=== PATIENT | female | born 1955 | race Two or more races ===

== ENCOUNTER 2018-08-31 05:42 | Inpatient (IN) | payer BC ==
--- NOTE | 2018-08-20 12:54 | HP ---
HISTORY AND PHYSICAL: DATE OF ADMISSION/SURGERY: 08/31/18 DATE OF OFFICE VISIT: 08/20/18 SURGEON: Netta Gilbert MD * (DICTATED BY KARIS RODRIGUES) PROCEDURE: Left total knee arthroplasty. CHIEF COMPLAINT: Left knee pain. HISTORY OF PRESENT ILLNESS: Ms. Nogueira is a 63-year-old female with severe end - stage osteoarthritis of the left knee. She has failed conservative treatment and elected to proceed with a left total knee arthroplasty. PAST MEDICAL HISTORY: Macular degeneration, depression, anxiety, and sleep apnea. PAST SURGICAL HISTORY: Gastric bypass, skin removal, and a ureteroscopy. CURRENT MEDICATIONS: 1. Vitamin B12. 2. Vitamin D. 3. Calcium. 4. Klonopin 0.5 mg as needed. 5. Prozac 10 mg daily. 6. Multivitamin. 7. Ranitidine 300 mg daily. 8. Pro-Optic daily. ALLERGIES: No known drug allergies. FAMILY HISTORY: Coronary artery disease, diabetes, cancer, and stroke. SOCIAL HISTORY: She is a 63-year-old female. She lives alone. She does not smoke or use drugs or alcohol. REVIEW OF SYSTEMS: A complete 14-point review of systems was reviewed with the patient, was all negative or noncontributory. She denies a history of DVT, PE, hepatitis, HIV or anesthesia problems. PHYSICAL EXAMINATION GENERAL: She is well developed, well nourished, in no acute distress. VITAL SIGNS: She stands 62 inches tall, weighs 274 pounds, her blood pressure is 138/86, and her heart rate 68. HEENT: Normocephalic, atraumatic. NECK: Supple. No palpable lymph nodes. PULMONARY: The lungs are clear to auscultation bilaterally. CARDIO: Regular rate and rhythm. Strong S1, S2. ABDOMEN: Soft, nontender and nondistended. NEUROLOGICAL: She is alert and oriented x3. MUSCULOSKELETAL: Left lower extremity: The skin is intact. There are no open wounds or abrasions. There is severe varus deformity of the left knee. Range of motion is 5 to 70 degrees of flexion on the left. She has a 2+ dorsalis pedis pulse. Intact sensation. Her lower extremity muscle group strengths are intact at 5/5. ASSESSMENT AND PLAN: Ms. Nogueira is a 63-year-old female with severe end-stage osteoarthritis of the left knee. She has failed conservative treatment and elected to proceed with the left total knee arthroplasty. Her surgery is scheduled for 08/31/[address] Gilbert discussed the risks and benefits of the surgery at today's visit and all of her questions were answered. She will follow up 2 weeks after the surgery. KARIS RODRIGUES [id number]/[facility] #: [id number] [facility] HEALTHBarbara
[~2018-08-31 05:42] MED LIST: Buffered Lidocaine 1% SYRIN* 1 ML/SYRINGE INTRADERM ONE; Tranexamic Acid 1,000 MG in NS 0.9% 50 ML* (outpatient use) IV SCH
--- OUTSIDE RECORDS SUMMARY | 2018-08-31 05:45 | XMS REPORT | Continuity of Care Document ---
:1955 External Reference #:[id number] Author Name Shanna Ross Care Team Providers Name Role Phone Tram Jolly MD Primary Care Physician Unavailable Payers Type Date Identification Numbers Payment Provider Subscriber Policy Number: [id number] [facility] Serena Nogueira PayID: [id number] [address] [place] [address] Advance Directives Description No Information Available Problems Date Description Provider Status Onset: 02/15/2016 Knee pain Clementine Redmond MD Active Onset: 02/15/2016 Localized, primary osteoarthritis Clementine Redmond MD Active Onset: 02/15/2016 Obesity Clementine Redmond MD Active Onset: 03/11/2016 Dyssomnia Savana Turner DNP, RN, Active [employer]IN[employer] REST[employer]ER-BC Onset: 03/11/2016 Hypersomnia Savana Turner DNP, RN, Active [employer] Onset: 03/11/2016 Snoring Savana Turner DNP, RN, Active [employer]IN[employer] REST[employer]ER-BC Onset: 03/11/2016 Morbid obesity Savana Turner DNP, RN, Active [employer]IN[employer]-BC Onset: 04/11/2016 Obstructive sleep apnea syndrome Savana Turner DNP, RN, Active [employer]IN[employer] REST[employer]-BC Family History Date Family Member(s) Problem(s) Comments General Diabetes General Heart Disease Father CHF ; at age 85 Mother Breast Cancer Mother at age 85 d/t pneumonia Mother Depression Siblings 1 Sister from heart attack at age 49 Social History Type Date Description Comments Sex Unknown Marital Status Lives With Alone Occupation Retired Tobacco Use Start: Unknown Never Smoked Cigarettes Smoking Status Reviewed: 08/20/18 Never Smoked Cigarettes ETOH Use Denies alcohol use Tobacco Use Start: Unknown Patient has never smoked Recreational Drug Use Denies Drug Use Exercise Type/Frequency Exercises regularly walks once daily. Swimming 5-6 times a week. Allergies, Adverse Reactions, Alerts Description No Known Drug Allergies Medications Medication Date Status Form Strength Qnty SIG Indications Ordering Provider Klonopin 00/00/ Active Tablets 0.5mg prn Unknown 0000 Prozac 00/ Active Capsules 10mg 1 by mouth Unknown 0000 every day Multivitamin /00/ Active Tablets 1 by mouth Unknown Adult 0000 every day Ranitidine HCL / Active Capsules 300mg once per day Unknown 0000 Pro Optic / Active qd Unknown 0000 Vitamin B12 / Active Tablets ER 1000mcg 1 by mouth Unknown 0000 every day Vitamin D-400 / Active Tablets 400Unit 1 by mouth Unknown 0000 every day 600-Unit / Active Tablets 600-200mg- on tab daily Unknown 0000 Unit Ranitidine HCL 04/01/ Hx Capsules 60cap Anurag 2017 - s Leeanne Michaels, .DJesus 2017 Pro Optic 04/01/ Hx qd Anurag 2018 Agustin Michaels, .DJesus 2017 Vitamin B12 25/ Hx Tablets 1 by mouth Unknown 2016 - every day 2017 Pro Optic 25/ Hx 1 by mouth Unknown 2015 - every day 2017 Vitamin D 25/ Hx Capsules 1 by mouth Unknown 2016 - every day 2017 Aviane / Hx Tablets 0.1-20mg-m take one Unknown 0000 - cg tablet by 12/07/ mouth one 2017 time daily Ciclopirox / Hx Solution 8% apply to Unknown 0000 - affected 12/07/ toenails and 2017 surrounding skin at bedtime Calcium / Hx Capsules 250mg once a day Unknown 0000 - 2017 Omeprazole / Hx Capsules 20mg 1 by mouth Unknown 0000 - DR every day 2017 Medications Administered in Office Medication Date Status Form Strength Qnty SIG Indications Ordering Provider Depomedrol Administered Injection Netta 40MG 018 Ana Gilbert Depomedrol Administered Injection Netta 40MG 018 Ana Gilbert Depomedrol Administered Injection Netta 40MG 018 Ana Gilbert Depomedrol Administered Injection Netta 40MG 018 Ana Gilbert Depomedrol Administered Injection Netta 40MG 018 Ana Gilbert Depomedrol Administered Injection Netta 40MG 018 Ana Gilbert Depomedrol Administered Injection Netta 40MG Marline Gilbert M.D. Depomedrol Administered Injection Netta 40MG Marline Gilbert M.D. Depomedrol Administered Injection Netta 40MG 017 Ana Gilbert Depkaminirol Administered Injection Netta 40MG Marline Gilbert M.D. Immunizations CPT Code Status Date Vaccine Lot # [id number] Given 05/01/2016 Influenza Virus Vaccine, Quadrivalent, Split, Preservative Free Vital Signs Date Vital Result Comment 08/20/2018 10:38am Height 62 inches 5'2" Weight 274.00 lb Heart Rate 68 /min BP Systolic 138 mmHg BP Diastolic 86 mmHg Respiratory Rate 16 /min Body Temperature 97.7 F Pain Level 0 BMI (Body Mass Index) 50.1 kg/m2 08/19/2018 10:00am Height 62 inches 5'2" Weight 278.00 lb with clothes and shoes Heart Rate 98 /min BP Systolic Sitting 148 mmHg right arm, large cuff, sitting BP Diastolic Sitting 80 mmHg right arm, large cuff, sitting BP Systolic Standing 130 mmHg right arm, large cuff, standing BP Diastolic Standing 78 mmHg right arm, large cuff, standing Respiratory Rate 18 /min O2 % BldC Oximetry 97 % BMI (Body Mass Index) 50.8 kg/m2 06/18/2018 8:49am Height 62 inches 5'2" Weight 267.00 lb Heart Rate 60 /min BP Systolic Sitting 120 mmHg Lue large cuff BP Diastolic Sitting 84 mmHg Lue large cuff Respiratory Rate 18 /min O2 % BldC Oximetry 97 % On Ra BMI (Body Mass Index) 48.8 kg/m2 06/07/2018 9:27am Height 62 inches 5'2" Weight 277.00 lb BP Systolic 144 mmHg BP Diastolic 84 mmHg Body Temperature 97.7 F BMI (Body Mass Index) 50.7 kg/m2 05/27/2018 3:05pm Height 62 inches 5'2" Weight 274.25 lb Heart Rate 71 /min BP Systolic Sitting 138 mmHg right arm, sitting, large cuff BP Diastolic Sitting 78 mmHg right arm, sitting, large cuff BP Systolic Standing 128 mmHg right arm, standing, large cuff BP Diastolic Standing 78 mmHg right arm, standing, large cuff Body Temperature 98.2 F O2 % BldC Oximetry 95 % BMI (Body Mass Index) 50.2 kg/m2 04/01/2018 9:12am Height 62 inches 5'2" Weight 268.38 lb Heart Rate 53 /min per EKG BP Systolic 130 mmHg right arm, large cuff BP Diastolic 82 mmHg right arm, large cuff BP Systolic Sitting 120 mmHg left arm, large cuff BP Diastolic Sitting 78 mmHg left arm, large cuff BP Systolic Standing 118 mmHg left arm, large cuff BP Diastolic Standing 80 mmHg left arm, large cuff BMI (Body Mass Index) 49.1 kg/m2 04/01/2018 3:46pm Height 62 inches 5'2" 02/08/2018 11:47am Height 62 inches 5'2" Weight 263.00 lb BP Systolic 124 mmHg BP Diastolic 72 mmHg Body Temperature 97.8 F BMI (Body Mass Index) 48.1 kg/m2 12/15/2017 1:15pm Height 61 inches 5'1" Weight 259.00 lb Heart Rate 68 /min BP Systolic Sitting 118 mmHg Lue large cuff BP Diastolic Sitting 84 mmHg Lue large cuff Respiratory Rate 18 /min O2 % BldC Oximetry 97 % On Ra BMI (Body Mass Index) 48.9 kg/m2 10/26/2017 1:08pm Height 61 inches 5'1" Heart Rate 62 /min Respiratory Rate 17 /min Body Temperature 97.7 F Pain Level 8 08/28/2017 1:03pm Height 61 inches 5'1" Weight 268.00 lb BP Systolic 134 mmHg BP Diastolic 82 mmHg Respiratory Rate 15 /min Pain Level 3 BMI (Body Mass Index) 50.6 kg/m2 05/27/2017 10:27am Height 61 inches 5'1" Weight 275.00 lb Heart Rate 60 /min BP Systolic 134 mmHg BP Diastolic 90 mmHg Body Temperature 97.1 F BMI (Body Mass Index) 52.0 kg/m2 03/18/2017 2:53pm Height 61 inches 5'1" Weight 274.00 lb BP Systolic 128 mmHg BP Diastolic 79 mmHg Respiratory Rate 16 /min Pain Level 2 BMI (Body Mass Index) 51.8 kg/m2 02/13/2017 11:55am Height 61 inches 5'1" Weight 278.00 lb Heart Rate 59 /min BP Systolic 124 mmHg BP Diastolic 86 mmHg BMI (Body Mass Index) 52.5 kg/m2 12/08/2016 9:32am Height 62 inches 5'2" Weight 293.00 lb Heart Rate 80 /min BP Systolic Sitting 136 mmHg BP Diastolic Sitting 88 mmHg Respiratory Rate 18 /min O2 % BldC Oximetry 98 % BMI (Body Mass Index) 53.6 kg/m2 06/09/2016 9:33am Height 62 inches 5'2" Heart Rate 72 /min BP Systolic 124 mmHg BP Diastolic 84 mmHg Respiratory Rate 14 /min O2 % BldC Oximetry 98 % 04/11/2016 10:12am Height 62 inches 5'2" Weight 300.00 lb per pt report, she declines weighing BMI (Body Mass Index) 54.9 kg/m2 04/11/2016 10:11am Heart Rate 95 /min BP Systolic 134 mmHg BP Diastolic 76 mmHg O2 % BldC Oximetry 97 % 03/28/2016 10:57am Height 61.25 inches 5'1.25" Heart Rate 73 /min BP Systolic 141 mmHg BP Diastolic 92 mmHg 03/11/2016 8:24am Height 62 inches 5'2" Weight 300.00 lb per pt (declined getting on scale) Heart Rate 75 /min BP Systolic Sitting 129 mmHg BP Diastolic Sitting 74 mmHg Respiratory Rate 16 /min O2 % BldC Oximetry 97 % BMI (Body Mass Index) 54.9 kg/m2 Neck Circumference in inches 15 02/15/2016 1:57pm Height 62 inches 5'2" Weight 300.00 lb BP Systolic 122 mmHg BP Diastolic 82 mmHg BMI (Body Mass Index) 54.9 kg/m2 Results Description No Information Available Procedures Date Code Description Status 06/07/201853182 Inject/Drain Joint/Bursa Major W/O US Completed 04/13/2018 10031 Myocardial Perfusion Imaging Tomographic (Spect) Completed Multiple Studies 04/12/2018 79360 Treadmill Interp/Report Only Completed 04/12/2018 62573 Stress Test Supervsn W/Out I/R Completed 04/01/2018 72202 EKG, Interpretation Only Completed 02/08/201840196 Inject/Drain Joint/Bursa Major W/O US Completed 10/26/2017 Inject/Drain Joint/Bursa Major W/O US Completed 06/26/2017 [id number] Colonoscopy Completed 05/27/2017 Inject/Drain Joint/Bursa Major W/O US Completed 05/04/2017 [id number] Colonoscopy Completed 02/13/2017 Inject/Drain Joint/Bursa Major W/O US Completed 03/18/2016 86782 Sleep Study Unattended,HRT Rate,Oxygen Sat,Resp Completed Effort/Airflow Encounters Type Date Location Provider Dx Diagnosis Office Visit 06/18/2018 Pulmonology And Savana Turner, G47.33 Obstructive sleep 9:00a Sleep Services Of [facility] RN, P[employer] AND PRINTS RESTORER-BC apnea (adult) Continuous Improvement Director (pediatric) Z98.84 Bariatric surgery status Z68.42 Body mass index (BMI) 45.0-49.9, adult Office Visit 06/07/2018 9:15a Orthopedic Services Netta Gilbert, M25.561 Pain in right Of [facility] M.D. knee M25.461 Effusion, right knee M17.0 Bilateral primary osteoarthritis of knee M25.462 Effusion, left knee M25.562 Pain in left knee E66.01 Morbid (severe) obesity due to excess calories Z68.43 Body mass index (BMI) 50-59.9, adult Office Visit 05/27/2018 Papo Fallon R94.31 Abnormal 10:30a Cardiology Ana Michaels electrocardiogram [ECG] [EKG] R06.02 Shortness of breath Office Visit 04/01/2018 Papo Fallon R94.31 Abnormal 9:30a Cardiology Ana Michaels electrocardiogram [ECG] [EKG] Z01.810 Encounter for preprocedural cardiovascular examination Z82.49 Family hx of ischem heart dis and oth dis of the circ sys E66.9 Obesity, unspecified M17.0 Bilateral primary osteoarthritis of knee Z68.42 Body mass index (BMI) 45.0-49.9, adult Office Visit 12/15/2017 Pulmonology And Savana G47.33 Obstructive sleep 1:30p [facility] Turner, FRANTZ, apnea (adult) Mike HIDALGO-BC (pediatric) E66.01 Morbid (severe) obesity due to excess calories Z68.42 Body mass index (BMI) 45.0-49.9, adult Z98.84 Bariatric surgery status Office Visit 08/28/2017 1:00p Orthopedic Netta M17.0 Bilateral primary Services Of Ana Gilbert osteoarthritis of C.M.A. knee M25.561 Pain in right knee M25.562 Pain in left knee M25.462 Effusion, left knee M25.461 Effusion, right knee Office Visit 05/27/2017 9:45a Orthopedic Netta M17.0 Bilateral primary Services Of Ana Gilbert osteoarthritis of C.M.A. knee M25.561 Pain in right knee M25.562 Pain in left knee M25.462 Effusion, left knee M25.461 Effusion, right knee Office Visit 03/18/2017 Orthopedic Netta M17.0 Bilateral primary 2:15p Services Of Ana Gilbert osteoarthritis of C.M.A. knee Office Visit 02/13/2017 Orthopedic Netta M25.561 Pain in right knee 11:15a Services Of Ana Gilbert C.M.A. M25.462 Effusion, left knee M25.461 Effusion, right knee M17.0 Bilateral primary osteoarthritis of knee M25.562 Pain in left knee Office Visit 12/08/2016 Pulmonology And Savana G47.33 Obstructive sleep 9:30a [facility] Turner RN, apnea (adult) [facility] P[employer]ER AND PRINTS RESTORER-BC (pediatric) E66.01 Morbid (severe) obesity due to excess calories Z68.43 Body mass index (BMI) 50-59.9 , adult Office Visit 06/09/2016 Pulmonology And Savana G47.33 Obstructive sleep 9:15a [facility] Turner RN, apnea (adult) [facility] P[employer] AND PRINTS RESTORER-BC (pediatric) E66.01 Morbid (severe) obesity due to excess calories Z68.43 Body mass index (BMI) 50-59.9 , adult Office Visit 04/11/2016 Pulmonology And Savana G47.33 Obstructive sleep 10:00a [facility] Turner RN, apnea (adult) [facility] P[employer] AND PRINTS RESTORER-BC (pediatric) G47.00 Insomnia, unspecified G47.14 Hypersomnia due to medical condition E66.01 Morbid (severe) obesity due to excess calories Z68.43 Body mass index (BMI) 50-59.9 , adult Office Visit 03/28/2016 Orthopedic Netta Gilbert, M17.0 Bilateral primary 10:45a Services Of Ana osteoarthritis of C.M.A. knee Office Visit 03/11/2016 Pulmonology And Savana G47.8 Other sleep 8:15a Sleep [facility] Turner, RN, disorders [facility] G47.10 Hypersomnia, unspecified R06.83 Snoring Office Visit 02/15/2016 1:40p Sports Medicine Of Clementine Redmond MD M25.562 Pain in left [facility] [place] knee M17.12 Unilateral primary osteoarthritis, left knee E66.9 Obesity, unspecified Plan of Treatment Future Appointment(s):09/13/2018 1:45 pm - Netta Gilbert M.D. at [facility]08/31/2018 7:30 am - Gatito Marshall PA-C at [facility]08/31/2018 7:30 am - KARIS Ambrose at [facility]06/20/2019 9:15 am - Savana Turner DNP, RN, [facility] at Pulmonology [facility]08/31/2018 7:30 am - Netta Gilbert M.D. at [facility]08/20/2018 - Netta Gilbert M.D.M17.0 Bilateral primary osteoarthritis of kneeFollow up:Follow up: 2 weeks after oqrxzyfT22.562 Pain in left kneeM25.462 Effusion, left knee
--- OUTSIDE RECORDS SUMMARY | 2018-08-31 05:45 | XMS REPORT | Continuity of Care Document ---
:1955 External Reference #:[id number] Author Name Shireen Chavez Care Team Providers Name Role Phone Tram Jolly MD Primary Care Physician Unavailable Payers Type Date Identification Numbers Payment Provider Subscriber Policy Number: [id number] [facility] Serena Nogueira PayID: [id number] [address] [place] [address] Advance Directives Description No Information Available Problems Date Description Provider Status Onset: 02/15/2016 Knee pain Clementine Redmond MD Active Onset: 02/15/2016 Localized, primary osteoarthritis Clementine Redmond MD Active Onset: 02/15/2016 Obesity Clementine Redmond MD Active Onset: 03/11/2016 Dyssomnia Savana Turner DNP, RN, Active SURGICAL TECHNOLOGY INSTRUCTOR-BC Onset: 03/11/2016 Hypersomnia Savana Turner DNP, RN, Active SURGICAL TECHNOLOGY INSTRUCTOR-BC Onset: 03/11/2016 Snoring Savana Turner DNP, RN, Active SURGICAL TECHNOLOGY INSTRUCTOR-BC Onset: 03/11/2016 Morbid obesity Savana Turner DNP, RN, Active SURGICAL TECHNOLOGY INSTRUCTOR-BC Onset: 04/11/2016 Obstructive sleep apnea syndrome Savana Turner DNP, RN, Active SURGICAL TECHNOLOGY INSTRUCTOR-BC Family History Date Family Member(s) Problem(s) Comments General Diabetes General Heart Disease Father CHF ; at age 85 Mother Breast Cancer Mother at age 85 d/t pneumonia Mother Depression Siblings 1 Sister from heart attack at age 49 Social History Type Date Description Comments Sex Unknown Marital Status Lives With Alone Occupation Retired Tobacco Use Start: Unknown Never Smoked Cigarettes Smoking Status Reviewed: 08/12/18 Never Smoked Cigarettes ETOH Use Denies alcohol [...] Administered Injection Netta 40MG 017 Ana Gilbert Depomedrol Administered Injection Netta 40MG 017 Ana Gilbert Depomedrol Administered Injection Netta 40MG 017 Ana Gilbert Immunizations CPT Code Status Date Vaccine Lot # [id number] Given 05/01/2016 Influenza Virus Vaccine, Quadrivalent, Split, Preservative Free Vital Signs Date Vital Result Comment 08/19/2018 10:00am Height 62 inches 5'2" Weight [...] Information Available Procedures Date Code Description Status 06/07/2018 Inject/Drain Joint/Bursa Major W/O US Completed 04/13/2018 54920 Myocardial Perfusion Imaging Tomographic (Spect) Completed Multiple Studies 04/12/2018 43624 Treadmill Interp/Report Only Completed 04/12/2018 79643 Stress Test Supervsn W/Out I/R Completed 04/01/2018 41196 EKG, Interpretation Only Completed 02/08/201863936 Inject/Drain Joint/Bursa Major W/O US Completed 10/26/2017 Inject/Drain Joint/Bursa Major W/O US Completed 06/26/2017 [id number] Colonoscopy Completed 05/27/2017 Inject/Drain Joint/Bursa Major W/O US Completed 05/04/2017 [id number] Colonoscopy Completed 02/13/2017 28603 Inject/Drain Joint/Bursa Major W/O US Completed 03/18/2016 60530 Sleep Study Unattended,HRT Rate,Oxygen Sat,Resp Completed Effort/Airflow Encounters Type Date Location Provider Dx Diagnosis Office Visit 06/18/2018 Pulmonology And Savana Turner, G47.33 Obstructive sleep 9:00a [facility] Of [facility] HARRIS, SURGICAL TECHNOLOGY INSTRUCTOR-BC apnea (adult) 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-BC (pediatric) E66.01 Morbid (severe) obesity due to excess calories Z68.43 Body mass index (BMI) 50-59.9 , adult Office Visit 06/09/2016 Pulmonology And Savana G47.33 Obstructive sleep 9:15a Sleep [facility] Of STEVEN Turner RN, apnea (adult) [facility]-BC (pediatric) E66.01 Morbid (severe) obesity due to excess calories Z68.43 Body mass index (BMI) 50-59.9 , adult Office Visit 04/11/2016 Pulmonology And Savana G47.33 Obstructive sleep 10:00a Sleep [facility] Of STEVEN Turner RN, apnea (adult) [facility]-BC (pediatric) G47.00 Insomnia, unspecified G47.14 Hypersomnia due to medical condition E66.01 Morbid (severe) obesity due to excess calories Z68.43 Body mass index (BMI) 50-59.9 , adult Office Visit 03/28/2016 Orthopedic NettaSam Marley7.0 Bilateral primary 10:45a Services Of Ana osteoarthritis of C.M.A. knee Office Visit 03/11/2016 Pulmonology And Savana G47.8 Other sleep 8:15a Sleep [facility] Turner, RN, disorders [facility] G47.10 Hypersomnia, unspecified R06.83 Snoring Office Visit 02/15/2016 1:40p Sports Medicine Of james Redmond MD M25.562 Pain in left [facility] [place] knee M17.12 Unilateral primary osteoarthritis, left knee E66.9 Obesity, unspecified Plan of Treatment Future Appointment(s):08/31/2018 7:30 am - Gatito Marshall PA-C at [facility]08/31/2018 7:30 am - KARIS Ambrose at [facility]06/20/2019 9:15 am - Savana Turner DNP, RN, [facility] at Pulmonology And Sleep Services Of [facility]08/31/2018 7:30 am - Netta Gilbert M.D. at [facility]08/20/2018 10:00 am - Netta Gilbert M.D. at [facility]08/19/2018 - Anurag Michaels M.D.R94.31 Abnormal electrocardiogram [ECG] [EKG]Follow up:As obkevnM34.02 Shortness of bvwdniF86.810 Encounter for preprocedural cardiovascular examination
--- OUTSIDE RECORDS SUMMARY | 2018-08-31 05:46 | XMS REPORT ---
:1955 External Reference #:[id number] Author Organization [facility] Address [address] [place] [address] Phone [phone] Care Team Providers Name Role Phone Tram Jolly Care Team Information Welt Insole Channeler Unavailable Tram Jolly Primary Care Physician Unavailable Payers Type Date Identification Numbers Payment Provider Subscriber Commercial Effective: Policy Number: [id number] [place] Plan Serena Crouchrer 2004 PayID: [id number] [address] [place] [address] Problems Date Description Provider Status Onset: 09/30/2011 Obesity Mariela Bradshaw M.D. Active Onset: 09/30/2011 Depressive disorder Mariela Bradshaw M.D. Active Onset: 09/30/2011 Ganglion cyst Mariela Bradshaw M.D. Active Onset: 09/30/2011 Bariatric Surgery Status Mariela Bradshaw M.D. Active Onset: 12/25/2011 Anxiety state Mariela Bradshaw M.D. Active Onset: 09/27/2012 Acute upper respiratory infection Jose Serrato M.D. Active Onset: 09/27/2012 Otitis media Jose Serrato M.D. Active Onset: 06/09/2017 Localized, primary osteoarthritis Tram Jolly M.D. Active Onset: 06/09/2017 Adjustment disorder with depressed Tram Jolly M.D. Active mood Onset: 06/09/2017 Gastroesophageal reflux disease Tram Jolly M.D. Active Family History Date Family Member(s) Problem(s) Comments General Breast Cancer mother at age 64.- survived. General Coronary Artery Disease PGF and all paternal (CAD) uncles and aunts in their 40's due to heart disease. Father . 2014 6 months after her mom. Mother 2014, dt pneumonia, severe depression, sepsis, lung condition. Number of Children None : (1998) First Sister due to [place] at age 49 Social History Type Date Description Comments Marital Status Patient is in 1996. Had reconnected and were going to live together. He 07/20/2014. Living Situation Patient lives alone Diet Sleep Reports continuity disturbances Occupation retired. worked for [employer] at [place] with mentallyl disabled [employer]. adults Cigarette Use Never Smoked Cigarettes ETOH Use Denies alcohol use Recreational Drug Use Denies Drug Use Smoking Patient has never smoked Daily Caffeine Consumes on average 4 cups at least. skim milk. of coffee per day sugar free creamer. Exercise Type/Frequency Exercises regularly -- Current walks once daily. swimming 5-6 times a week. Allergies, Adverse Reactions, Alerts Date Description Reaction Status Severity Comments 10/01/2011 NKDA active Medications Medication Date Status Form Strength Qnty SIG Indications Ordering Provider Fluoxetine HCL 07/09/ Active Capsules 10mg 90caps 1 by Tram Pablo mouth Shanae, every M.D. morning Ranitidine HCL 03/09/ Active Tablets 300mg 90tabs take one K21.Luc Pablo tablet by Shanae mouth at M.D. bedtime Multivitamin 10/21/ Active 1 a day. Tram Jolly M.D. Klonopin / Active Tablets 0.5mg 60tabs 1 by Tram Stanley 0000 mouth Shanae, twice M.D. daily as needed anxiety, insomnia Fluoxetine HCL 06/01/ Hx Capsules 20mg 90caps 1 by Tram Pablo - mouth Shanae, 07/09/ every day M.D. 2018 Omeprazole 03/09/ Hx Capsules DR 20mg 90caps 1 by Bran Stanley 2017 - mouth Shanae, 08/04/ every day M.D. 2017 Doxycycline 06/16/ Hx Tablets 100mg 2tabs 2 pills Tram Vitale 2016 - by mouth Shanae, 08/13/ at the M.D. 2017 same time. Fluoxetine HCL 06/09/ Hx Tablets 20mg 30tabs 1 tab by Tram Stanley 2017 - mouth Shanae, 06/09/ every M.D. 2016 day. Omeprazole 06/09/ Hx Capsules DR 20mg 30caps 1 by F43.21 Tram Stanley 2017 - mouth Shanae, 04/20/ every day M.D. 2017 Fluoxetine HCL 06/09/ Hx Capsules 20mg 30caps 1 by Tram Stanley 2017 - mouth Shanae, 10/21/ every day M.D. 2017 Omeprazole 02/03/ Hx Capsules DR 40mg 90caps 1 by F43.21 Tram Stanley 2016 - mouth Shanae, 06/09/ every day M.D. 2016 Zostavax 02/03/ Hx Suspension [id number]/0 inject Z00.01 Tram Stanley 2017 - Rec .65ML subq Shanae, 02/16/ M.D. 2016 Bactrim DS 07/14/ Hx Tablets 800-160mg 10tabs 1 by N39.0 Nadine 2015 - mouth Jasmeetorf, 07/19/ twice a Afnp-C 2015 Vitamin D 03/03/ Hx Capsules [id number] 8caps take 1 E55.9 Tram Stanley (Ergocalcifero 2016 - capsule Shanae, dima) 11/27/ by mouth M.D. 2016 once weekly for 8 weeks. Amoxicillin 09/27/ Hx Capsules 500mg 14caps bid x 7 Jose JJesus 2012 - days Breiman, 01/30/ M.D. 2016 Prozac 09/09/ Hx Capsules 20mg 90caps 1 po qd 300.00 Shannan 2012 - Kofi, 2016 Aviane 06/14/ Hx Tablets 0.1-20mg-m 1pk 1 po qd 627.2 Shannan 2011 - cg Kofi, 2016 Prozac 12/25/ Hx Capsules 40mg 180cap 1 po qd 300.00 Shannan 2011 - s Kofi, 06/16/ ICE CUTTER 2016 Klonopin 04/10/ Hx Tablets 0.5mg 30tabs 1 po bid 300.00 Mariela Fallon 2011 - prn Arbuckle 09/27/ ryan M.D. 2012 caution to sedation, avoid alcohol 311 Ciclopirox Nail 11/25/2011 - Hx Solution 8% 1bottle apply once Shannan Lacquer 01/31/2016 daily Kofi, ICE CUTTER [place] Nail 09/23/2010 - Hx Solution 8% [id number] apply daily Rosibel Lacquer 09/30/2011 to fungal amarilis Jason M.D. infection Terbinafine HCL 07/01/2010 - Hx Tablets 250mg 30tabs 1 po qd Rosibel 09/23/2010 real Hillman M.D. Note 07/01/2010 - Hx Weight for medical Rosibel 09/30/2011 Watchers reasons minerva Jason M.D. weight loss goal is 175 pounds Calcium 04/26/2009 - Hx Tablets 600mg 2 po qd Family 01/31/2016 [facility] 04/26/2009 - Hx Capsules 20mg 360caps 2 po qd Shad F. 12/26/2011 Ana Canela Vaniqa 04/22/2007 - Hx Cream 13.9% 30gm apply to Rosibel 04/26/2009 affected jade [facility] M.[facility]. [facility] 12/16/2005 - Hx Solution 8% 3.3ml Apply QHS Rosibel 04/26/2009 real iHllman M.D. Colchicine 10/08/2004 - Hx 0.6mg 60units one po tid Josiane 05/13/2006 Until SX Ashvin, Resolved Or Afnp-C Diarrhea Allopurinol 09/12/2004 - Hx 100mg 52units 1 po qd x 1 Rosibel 09/12/2004 week then 2 real Hillman po qd x 1 M.D. week then 3 po qd Allopurinol 09/12/2004 - Hx 300mg 30units 1 po qd Rosibel 10/10/2005 real Hillman M.D. Protonix 10/24/2003 - Hx 40mg 0units 1 po qd Family 09/12/2004 Medicine [facility] Colchicine 09/26/2003 - Hx 0.6mg 90units one po tid Rosibel 09/12/2004 until shelton Jason, resolved or Ana diarrhea. Biaxin 11/03/2002 - Hx Tabs 500mg 20tabs 1 PO bid Shannan 11/14/2002 Kofi, ICE CUTTER Albuterol 11/03/2002 - Hx 1units 2 Puffq 3-4 Shannan Inhaler 11/14/2002 HRS prn Kofi, ICE CUTTER Indomethacin 11/03/2001 - Hx 25mg Cap 30units One-Two tid Family 02/28/2003 prn Gout L [facility] Biaxin 11/03/2001 - Hx 250mg/5cc 1TSP PO bid Family 11/13/2001 [facility] [place] 12/18/2000 - Hx Bottle One Apply QHS Garry Villegas 04/17/2001 Ana Martinez Vaniqa 09/08/2000 - Hx 30gm Apply as Garry SJesus 02/28/2003 Directed Ana Martinez bid Actos 06/17/2000 - Hx 30mg 90units 1 Q Am Garry Villegas 09/26/2003 Ana Martinez Prozac 06/17/2000 - Hx 20mg 180units 2 qd Garry SJesus 07/29/2001 Ana Martinez Tobrex 04/18/2000 - Hx Ophth Soln Smbottle 1 GGT OU Garry Villegas 12/18/2000 qid Until Ana Martinez Clear Actos 12/11/1999 - Hx 15mg 90units 1 Q Am Garry Villegas 06/17/2000 Ana Martinez Biaxin 12/08/1998 - Hx 500mg 20units 1 PO bid Johnathon Shoemaker 12/18/1998 Ana Topete Amoxicillin 12/05/1998 - Hx Tablets 500mg 20tabs 1 bid Garry SJesus 12/08/1998 Ana Martinez Prozac 05/16/1998 - Hx 20mg 90units 1 PO qd Nadine 06/17/2000 Jan Haines Amoxicillin 03/01/1998 - Hx Tablets 500mg 30tabs 1 Tablet 3 Josiane 03/11/1998 Times Daily Jan Lcok Cortisporin 03/01/1998 - Hx 1units 3-4gtts qid Josiane Otic 03/06/1998 Jan Lock For 5-7 D Rezulin 06/08/1997 - Hx 400mg 90units 1 qd Garry SJesus 12/11/1999 Ana Martinez Glucotrol XL 06/08/1997 - Hx 5mg 90units 1 PO qod Garry SJesus 02/08/1998 Ana aMrtinez Multivitamin 05/18/1997 - Hx 100units 1 qd Garry SJesus 09/12/2004 Ana Martinez Relafen 05/15/1997 - Hx 2 500mg 180units 2 qd Garry SJesus 09/26/2003 Ana Martinez Diflucan 05/09/1997 - Hx 100mg 4units 2 Stat 1 PO Garry S. 05/17/1997 qd X 2 Days Ana Mratinez Multi Vitamin - Hx 1 po qd Family 01/31/2016 [facility] - Hx Capsules 40mg 90caps 1 by mouth Tram Stanley 06/09/2017 every day Ana Jolly Immunizations CPT Code Status Date Vaccine Lot # [id number] Given 02/03/2017 Zostivax [id number] Given 01/31/2016 Tdap Tetanus, W Pertussis [id number] Given 06/06/2013 DO Not Use Split Influenza Virus Vaccine [id number] Vital Signs Date Vital Result Comment 08/04/2018 BP Systolic 130 mmHg BP Diastolic 80 mmHg Heart Rate 68 /min Body Temperature 98.2 F Respiratory Rate 18 /min Height 62 inches 5'2" Weight 276.00 lb BMI (Body Mass Index) 50.5 kg/m2 04/20/2018 BP Systolic 110 mmHg BP Diastolic 72 mmHg Heart Rate 66 /min Body Temperature 98.3 F Respiratory Rate 18 /min Height 62 inches 5'2" Weight 273.00 lb BMI (Body Mass Index) 49.9 kg/m2 03/09/2018 BP Systolic 124 mmHg BP Diastolic 78 mmHg Heart Rate 68 /min Body Temperature 97.8 F Respiratory Rate 16 /min Height 62 inches 5'2" Weight 268.00 lb BMI (Body Mass Index) 49.0 kg/m2 10/21/2017 BP Systolic 112 mmHg BP Diastolic 74 mmHg Heart Rate 72 /min Body Temperature 97.5 F Height 61 inches 5'1" Weight 266.12 lb BMI (Body Mass Index) 50.3 kg/m2 08/13/2017 BP Systolic 122 mmHg BP Diastolic 74 mmHg Heart Rate 64 /min Body Temperature 97.5 F Respiratory Rate 16 /min Height 61 inches 5'1" Weight 269.12 lb BMI (Body Mass Index) 50.8 kg/m2 06/09/2017 BP Systolic 138 mmHg BP Diastolic 90 mmHg Heart Rate 68 /min Body Temperature 98.1 F Respiratory Rate 18 /min Height 61 inches 5'1" Weight 270.00 lb BMI (Body Mass Index) 51.0 kg/m2 02/03/2017 BP Systolic 120 mmHg BP Diastolic 80 mmHg Heart Rate 72 /min Body Temperature 98.1 F Respiratory Rate 18 /min Height 61 inches 5'1" Weight 280.00 lb BMI (Body Mass Index) 52.9 kg/m2 11/27/2016 BP Systolic 128 mmHg BP Diastolic 90 mmHg Heart Rate 68 /min Body Temperature 98.2 F Respiratory Rate 18 /min Height 62 inches 5'2" Weight 299.00 lb BMI (Body Mass Index) 54.7 kg/m2 07/30/2016 BP Systolic 138 mmHg BP Diastolic 82 mmHg Heart Rate 76 /min Body Temperature 98.9 F Height 62 inches 5'2" 07/14/2016 BP Systolic 134 mmHg BP Diastolic 86 mmHg Heart Rate 84 /min Body Temperature 98.2 F Respiratory Rate 18 /min Height 62 inches 5'2" 03/03/2016 BP Systolic 124 mmHg BP Diastolic 84 mmHg Heart Rate 80 /min Body Temperature 97.3 F Respiratory Rate 18 /min Height 62 inches 5'2" 01/31/2016 BP Systolic 120 mmHg BP Diastolic 88 mmHg Heart Rate 68 /min Body Temperature 98.0 F Respiratory Rate 18 /min Height 62 inches 5'2" 09/27/2012 BP Systolic 130 mmHg BP Diastolic 80 mmHg Heart Rate 62 /min Body Temperature 100.0 F Height 62 inches 5'2" Weight 222.00 lb BMI (Body Mass Index) 40.6 kg/m2 09/09/2012 BP Systolic 110 mmHg BP Diastolic 80 mmHg Heart Rate 60 /min Body Temperature 98.1 F Height 62 inches 5'2" Weight 122.00 lb BMI (Body Mass Index) 22.3 kg/m2 06/14/2012 BP Systolic 128 mmHg BP Diastolic 80 mmHg Heart Rate 60 /min Body Temperature 98.3 F Height 62 inches 5'2" Weight 215.00 lb BMI (Body Mass Index) 39.3 kg/m2 04/20/2012 BP Systolic 130 mmHg BP Diastolic 78 mmHg Heart Rate 80 /min Height 62 inches 5'2" Weight 217.00 lb BMI (Body Mass Index) 39.7 kg/m2 03/17/2012 BP Systolic 118 mmHg BP Diastolic 60 mmHg Heart Rate 76 /min Body Temperature 96.5 F Height 62 inches 5'2" Weight 212.00 lb BMI (Body Mass Index) 38.8 kg/m2 12/25/2011 BP Systolic 118 mmHg BP Diastolic 80 mmHg Heart Rate 80 /min Height 62 inches 5'2" Weight 208.00 lb BMI (Body Mass Index) 38.0 kg/m2 11/25/2011 BP Systolic 120 mmHg BP Diastolic 84 mmHg Heart Rate 72 /min Body Temperature 98.1 F Height 62 inches 5'2" Weight 210.00 lb BMI (Body Mass Index) 38.4 kg/m2 09/30/2011 BP Systolic 130 mmHg BP Diastolic 82 mmHg Heart Rate 88 /min Body Temperature 97.1 F Height 62 inches 5'2" Weight 211.00 lb BMI (Body Mass Index) 38.6 kg/m2 07/01/2010 BP Systolic 120 mmHg BP Diastolic 68 mmHg Heart Rate 80 /min Height 62 inches 5'2" Weight 189.00 lb BMI (Body Mass Index) 34.6 kg/m2 06/25/2009 BP Systolic 128 mmHg BP Diastolic 66 mmHg Heart Rate 60 /min Body Temperature 97.2 F Height 62 inches 5'2" Weight 202.00 lb BMI (Body Mass Index) 36.9 kg/m2 04/26/2009 BP Systolic 126 mmHg BP Diastolic 64 mmHg Heart Rate 60 /min Respiratory Rate 18 /min Height 62 inches 5'2" Weight 213.00 lb BMI (Body Mass Index) 39.0 kg/m2 05/22/2008 BP Systolic 128 mmHg BP Diastolic 78 mmHg Heart Rate 74 /min Height 62 inches 5'2" Weight 235.00 lb BMI (Body Mass Index) 43.0 kg/m2 04/15/2007 BP Systolic 128 mmHg BP Diastolic 82 mmHg Heart Rate 80 /min Height 62 inches 5'2" Weight 235.00 lb BMI (Body Mass Index) 43.0 kg/m2 05/13/2006 BP Systolic 122 mmHg BP Diastolic 80 mmHg Heart Rate 76 /min Height 62 inches 5'2" Weight 221.00 lb BMI (Body Mass Index) 40.4 kg/m2 10/10/2005 BP Systolic 112 mmHg BP Diastolic 50 mmHg Heart Rate 72 /min Weight 240.00 lb 01/01/2005 BP Systolic 104 mmHg BP Diastolic 66 mmHg Heart Rate 72 /min Weight 253.00 lb 11/12/2004 BP Systolic 122 mmHg BP Diastolic 80 mmHg Heart Rate 70 /min Weight 259.00 lb 10/08/2004 BP Systolic 120 mmHg BP Diastolic 80 mmHg Body Temperature 99.3 F Weight 259.00 lb 09/12/2004 BP Systolic 120 mmHg BP Diastolic 80 mmHg Heart Rate 80 /min Weight 262.00 lb 06/20/2004 BP Systolic 122 mmHg BP Diastolic 60 mmHg Body Temperature 98.3 F 06/17/2004 BP Systolic 104 mmHg BP Diastolic 64 mmHg Heart Rate 60 /min Weight 275.00 lb 02/01/2004 BP Systolic 110 mmHg BP Diastolic 70 mmHg Heart Rate 72 /min Weight 311.00 lb 10/24/2003 BP Systolic 124 mmHg Thigh Cuff BP Diastolic 80 mmHg Thigh Cuff Body Temperature 97.2 F 09/26/2003 BP Systolic 136 mmHg BP Diastolic 78 mmHg Heart Rate 96 /min 07/06/2003 BP Systolic 148 mmHg BP Diastolic 80 mmHg Heart Rate 72 /min 02/28/2003 BP Systolic 120 mmHg BP Diastolic 80 mmHg Heart Rate 88 /min 11/03/2002 BP Systolic 130 mmHg BP Diastolic 78 mmHg Heart Rate 80 /min Body Temperature 97.9 F 09/13/2002 BP Systolic 126 mmHg BP Diastolic 70 mmHg Heart Rate 80 /min 03/31/2002 BP Systolic 130 mmHg BP Diastolic 68 mmHg Heart Rate 76 /min 11/25/2001 BP Systolic 124 mmHg BP Diastolic 72 mmHg Heart Rate 84 /min Respiratory Rate 12 /min 11/03/2001 BP Systolic 128 mmHg BP Diastolic 78 mmHg Heart Rate 88 /min Body Temperature 97.2 F Respiratory Rate 18 /min 07/29/2001 BP Systolic 110 mmHg BP Diastolic 70 mmHg Heart Rate 88 /min Body Temperature 96.7 F Respiratory Rate 26 /min 04/29/2001 BP Systolic 108 mmHg BP Diastolic 78 mmHg Heart Rate 80 /min Body Temperature 97.4 F Respiratory Rate 14 /min 12/18/2000 BP Systolic 144 mmHg BP Diastolic 80 mmHg Heart Rate 94 /min 09/08/2000 BP Systolic 168 mmHg LA LG Cuff BP Diastolic 86 mmHg LA LG Cuff Heart Rate 80 /min Reg 06/17/2000 BP Systolic 138 mmHg BP Diastolic 84 mmHg Heart Rate 88 /min 03/12/2000 BP Systolic 120 mmHg LA LG Cuff BP Diastolic 80 mmHg LA LG Cuff Heart Rate 84 /min 12/11/1999 BP Systolic 156 mmHg LA LG Cuff BP Diastolic 88 mmHg LA LG Cuff 08/21/1999 BP Systolic 150 mmHg BP Diastolic 86 mmHg 05/08/1999 BP Systolic 134 mmHg BP Diastolic 70 mmHg 02/06/1999 BP Systolic 160 mmHg L LG Cuff BP Diastolic 90 mmHg L LG Cuff 12/08/1998 Body Temperature 97.1 F 12/05/1998 Body Temperature 99.0 F 10/11/1998 BP Systolic 124 mmHg BP Diastolic 80 mmHg 07/11/1998 BP Systolic 132 mmHg BP Diastolic 90 mmHg 05/16/1998 BP Systolic 130 mmHg BP Diastolic 80 mmHg 03/14/1998 BP Systolic 120 mmHg LG Cuff BP Diastolic 70 mmHg LG Cuff Body Temperature 97.8 F 03/01/1998 Body Temperature 97.8 F 01/25/1998 BP Systolic 142 mmHg LA LG Cuff BP Diastolic 88 mmHg LA LG Cuff 11/02/1997 BP Systolic 120 mmHg BP Diastolic 82 mmHg 09/06/1997 BP Systolic 152 mmHg LG Cuff BP Diastolic 90 mmHg LG Cuff 06/28/1997 BP Systolic 130 mmHg BP Diastolic 90 mmHg 06/08/1997 BP Systolic 162 mmHg BP Diastolic 100 mmHg 05/18/1997 BP Systolic 152 mmHg BP Diastolic 100 mmHg Weight 350.00 lb Results Test Date Test Result H/L Range Note CBC Electronic Fma 03/23/2018 WBC 5.6 x10^3/UL 4.0-10.0 RBC 4.76 x10^6/UL 3.93-6.00 HGB 13.8 g/dL 12.0-17.0 HCT 42 % 35-50 MCV 88.2 fL 80.0-95.0 MCH 29.0 pg 25.6-32.2 MCHC 32.9 g/dL 32.2-36.0 RDW-CV 13.8 % 11.6-14.4 PLT 212 x10^3/UL 163-400 MPV 9.9 fL 9.4-12.4 Peter# 2.57 x10^3/UL 1.56-6.13 Lymph# 2.36 x10^3/UL 1.18-3.74 Hyde# 0.49 x10^3/UL 0.24-0.82 Eos # 0.1 x10^3/UL 0.0-0.5 Baso # 0.01 x10^3/UL 0.01-0.08 Peter% 46.0 % 34.0-70.0 Lymph % 42.3 % 20.0-52.0 Hyde% 8.8 % 5.0-12.0 Eos% 2.5 % 0.7-7.0 Baso% 0.2 % 0.1-1.2 Comprehensive Metabolic Prof 03/23/2018 Sodium 136 mEq/L 134-149 Potassium 4.4 mEq/L 3.6-5.5 Chloride 100 mEq/L 94-112 Carbon Dioxide 26 mEq/L 21-32 Glucose 94 mg/dL 70-105 BUN 9 mg/dL 6-26 Creatinine 0.6 mg/dL 0.6-1.4 BUN/Creat Ratio 15.0 CALC 8.0-36.0 Calcium 9.1 mg/dL 8.6-10.2 Total Protein 6.9 g/dL 6.4-8.3 Albumin 4.0 g/dL 3.8-5.5 Globulin 2.9 g/dL 2.0-4.8 A/G Ratio 1.4 CALC 0.6-2.3 Alk. Phosphatase 74 U/L 30-110 Alt (SGPT) 20 U/L 7-35 Ast (Sgot) 24 U/L 5-34 Total Bilirubin 0.4 mg/dL 0.2-1.3 GFR Non- >60 ml/min/1.73m^ >=60 GFR >60 ml/min/1.73m^ >=60 Lipid Profile 03/23/2018 Cholesterol 191 mg/dL 120-200 Triglycerides 140 mg/dL 30-200 HDL Cholesterol 65 mg/dL 30-85 LDL (Calculated) 98 CALC 0-129 VLDL Cholesterol 28 mg/dL 0-50 HDL Risk Factor 2.9 CALC 0.0-4.4 Laboratory test finding 03/23/2018 TSH 1.59 mIU/L 0.50-6.00 Laboratory test finding 02/03/2017 TSH 0.975 uIU/mL 0.450-4.500 1 CBC With Differential/Platelet 02/03/2017 WBC 6.1 x10E3/uL 3.4-10.8 1 RBC 4.92 x10E6/uL 3.77-5.28 1 Hemoglobin 13.9 g/dL 11.1-15.9 1 Hematocrit 43.1 % 34.0-46.6 1 MCV 88 fL 79-97 1 MCH 28.3 pg 26.6-33.0 1 MCHC 32.3 g/dL 31.5-35.7 1 RDW 14.4 % 12.3-15.4 1 Platelets 258 x10E3/uL 150-379 1 Neutrophils 55 % 1 Lymphs 36 % 1 Monocytes 7 % 1 Eos 2 % 1 Basos 0 % 1 Immature Cells TNP 1 Neutrophils (Absolute) 3.3 x10E3/uL 1.4-7.0 1 Lymphs (Absolute) 2.2 x10E3/uL 0.7-3.1 1 Monocytes(Absolute) 0.5 x10E3/uL 0.1-0.9 1 Eos (Absolute) 0.1 x10E3/uL 0.0-0.4 1 Baso (Absolute) 0.0 x10E3/uL 0.0-0.2 1 Immature Granulocytes 0 % 1 Immature Grans (Abs) 0.0 x10E3/uL 0.0-0.1 1 NRBC TNP 1 Hematology Comments: TNP 1 Metabolic Panel (14), Comprehensive 02/03/2017 Glucose, Serum 96 mg/dL 65 -99 1 BUN 16 mg/dL 8-27 1 Creatinine, Serum 0.70 mg/dL 0.57-1.00 1 eGFR If NonAfricn Am 94 mL/min/1.73 >59 1 eGFR If Africn Am 109 mL/min/1.73 >59 1 BUN/Creatinine Ratio 23 12-28 1 Sodium, Serum 142 mmol/L 134-144 1 Potassium, Serum 4.8 mmol/L 3.5-5.2 1 Chloride, Serum 104 mmol/L 96-106 1 Carbon Dioxide, Total 21 mmol/L 18-29 1 Calcium, Serum 9.2 mg/dL 8.7-10.3 1 Protein, Total, Serum 7.0 g/dL 6.0-8.5 1 Albumin, Serum 4.1 g/dL 3.6-4.8 1 Globulin, Total 2.9 g/dL 1.5-4.5 1 A/G Ratio 1.4 1.2-2.2 1 Bilirubin, Total 0.3 mg/dL 0.0-1.2 1 Alkaline Phosphatase, S 101 IU/L 39-117 1 Ast (Sgot) 16 IU/L 0-40 1 Alt (SGPT) 12 IU/L 0-32 1 Laboratory test finding 02/03/2017 Vitamin D, 25-Hydroxy 42.3 ng/mL 30.0- 100.0 1, 2 Basic Metabolic Panel 11/27/2016 Glucose, Serum 91 mg/dL 65-99 1 (8) BUN 14 mg/dL 8-27 1 Creatinine, Serum 0.70 mg/dL 0.57-1.00 1 eGFR If NonAfricn Am 94 mL/min/1.73 >59 1 eGFR If Africn Am 109 mL/min/1.73 >59 1 BUN/Creatinine Ratio 20 12-28 1 Sodium, Serum 142 mmol/L 134-144 1 Potassium, Serum 5.0 mmol/L 3.5-5.2 1 Chloride, Serum 105 mmol/L 96-106 1 Carbon Dioxide, Total 23 mmol/L 18-29 1 Calcium, Serum 9.1 mg/dL 8.7-10.3 1 Urine Culture Routine 07/14/2016 Urine Culture, Routine Final report 3 , 4 Result 1 No growth 3, 5 Ua - Micro (a) 07/14/2016 Appearance clear Color yellow Glucose, Urine (Fma/CMC/CTX) neg Bilirubin neg Ketones neg SP Grav <1.005 Blood small PH 5.5 Protein neg Urobil 0.2 Nitrite neg Leukocytes (Fma/CMC/Centrex) small Hyaline - /Lpf Granular - /Lpf WBC (Fma,Centrex) 10-12 RBC 1-2 Mucus (Fma/CBC/Centrex) - /Lpf Epith occass /Lpf Bacteria trace /Hpf Amorphous (Fma/CMC/Centrex) - /Lpf Crystals, Fluid (Fma/CMC/CTX) - Z#Comments - Lipid Panel 02/28/2016 Cholesterol, Total 157 mg/dL 100-199 6 Triglycerides 108 mg/dL 0-149 6 HDL Cholesterol 68 mg/dL >39 6, 7 VLDL Cholesterol Aman 22 mg/dL 5-40 6 LDL Cholesterol Calc 67 mg/dL 0-99 6 Comment: TNP 6 CBC With Differential/Platelet 02/28/2016 WBC 6.2 x10E3/uL 3.4-10.8 6 RBC 5.03 x10E6/uL 3.77-5.28 6 Hemoglobin 13.9 g/dL 11.1-15.9 6 Hematocrit 42.7 % 34.0-46.6 6 MCV 85 fL 79-97 6 MCH 27.6 pg 26.6-33.0 6 MCHC 32.6 g/dL 31.5-35.7 6 RDW 14.7 % 12.3-15.4 6 Platelets 220 x10E3/uL 150-379 6 Neutrophils 51 % 6 Lymphs 40 % 6 Monocytes 7 % 6 Eos 2 % 6 Basos 0 % 6 Immature Cells TNP 6 Neutrophils (Absolute) 3.1 x10E3/uL 1.4-7.0 6 Lymphs (Absolute) 2.5 x10E3/uL 0.7-3.1 6 Monocytes(Absolute) 0.5 x10E3/uL 0.1-0.9 6 Eos (Absolute) 0.2 x10E3/uL 0.0-0.4 6 Baso (Absolute) 0.0 x10E3/uL 0.0-0.2 6 Immature Granulocytes 0 % 6 Immature Grans (Abs) 0.0 x10E3/uL 0.0-0.1 6 NRBC TNP 6 Hematology Comments: TNP 6 Metabolic Panel (14), Comprehensive 02/28/2016 Glucose, Serum 101 mg/dL High 65-99 6 BUN 13 mg/dL 6-24 6 Creatinine, Serum 0.61 mg/dL 0.57-1.00 6 eGFR If NonAfricn Am 100 mL/min/1.73 >59 6 eGFR If Africn Am 115 mL/min/1.73 >59 6 BUN/Creatinine Ratio 21 9-23 6 Sodium, Serum 142 mmol/L 134-144 6 Potassium, Serum 4.7 mmol/L 3.5-5.2 6 Chloride, Serum 105 mmol/L 97-108 6 Carbon Dioxide, Total 21 mmol/L 18-29 6 Calcium, Serum 9.0 mg/dL 8.7-10.2 6 Protein, Total, Serum 6.7 g/dL 6.0-8.5 6 Albumin, Serum 4.0 g/dL 3.5-5.5 6 Globulin, Total 2.7 g/dL 1.5-4.5 6 A/G Ratio 1.5 1.1-2.5 6 Bilirubin, Total 0.3 mg/dL 0.0-1.2 6 Alkaline Phosphatase, S 97 IU/L 39-117 6 Ast (Sgot) 21 IU/L 0-40 6 Alt (SGPT) 21 IU/L 0-32 6 Laboratory test finding 02/28/2016 Thyroxine (T4) Free, 1.40 ng/dL 0.82- 1.77 6 Direct, S TSH 2.040 uIU/mL 0.450-4.500 6 Vitamin D, 25-Hydroxy 25.4 ng/mL Low 30.0-100.0 6, 8 Comprehensive Metabolic 11/09/2012 Glucose 93 mg/dL 70-100 9 BUN 16 mg/dL 4-18 9 Creatinine, Serum 0.76 mg/dL 0.50-1.10 9 Sodium 141 mmol/L 136-146 9 Potassium 4.5 mmol/L 3.5-5.3 9 Chloride 109 mmol/L 98-110 9 Carbon Dioxide 28 mmol/L 20-32 9 Albumin 4.0 g/dL 3.5-4.7 9 Protein, Total 6.8 g/dL 6.4-8.3 9 Calcium 8.9 mg/dL 8.4-10.4 9 Alkaline Phosphatase 82 U/L 10-118 9 Sgot (Ast) 27 U/L 3-40 9 SGPT (Alt) 28 U/L 7-50 9 Bilirubin, Total 0.30 mg/dL 0.30-1.20 9 Lipid Panel 11/09/2012 Cholesterol, Total 138 mg/dL <200 9 Triglycerides 79 mg/dL <150 9 HDL Cholesterol 54 mg/dL 40-60 9 Chol/HDL Cholesterol 2.6 9, 10 LDL Cholesterol, Calc. 68 mg/dL 9, 11 LDL/HDL Cholesterol 1.3 9, 12 Egfr (Calculated) 11/09/2012 Estimated GFR (CALCULATED) 9 Egfr >60 9, 13 Egfr, -Slovenian >60 9, 14 CBC Electronic (Fma) 11/08/2012 WBC 4.4 3.6-9.6 RBC 4.76 3.90-5.70 Hemoglobin (Fma/CMC/CTX) 14.1 g/dL 12.1 - 17.2 Hematocrit (Fma/CMC/CTX) 42.3 % 36.1 - 50.3 Platelets 264 10^3/ul 150-400 Lymph% 40.7 20.5-51.1 Mixed% 5.9 Neutrophils % 54.4 Mean Corpuscular Vol 89 82.2-97.4 Mean Corpuscular Hemoglobin 29.6 27.6-33.3 Mean Corpuscular Hemo Concen 33.3 32.0-36.0 RDW 12.1 11.6-13.7 Mean Platelet Volume 7.8 6.5-11.0 Egfr (Calculated) 11/06/2011 Estimated GFR (CALCULATED) 15 Egfr >60 15, 16 Egfr, -Slovenian >60 15, 17 Iron/Tibc,%Sat Group 11/06/2011 Iron 69 g/dL 30-158 15 Total Iron Binding Cap. 363 g/dL 250-450 15 % Iron Saturation 19.0 % 13.0-45.0 15 CBC 11/06/2011 WBC 4.3 x10E3/uL 4.3-10.9 15 RBC 4.92 x10E6/uL 3.80-5.30 15 Hemoglobin 14.2 g/dL 11.8-15.8 15 Hematocrit 43.8 % 35.0-47.0 15 MCV 89.0 fl 82.0-98.0 15 MCH 28.9 pg 27.5-33.5 15 MCHC 32.4 g/dL 32.0-36.0 15 RDW 14.6 % High 11.5-14.5 15 Platelet Count 220 x10E3/uL 130-400 15 MPV 10.7 fl High 6.5-10.5 15 Segmented Neutrophils 43.2 % Low 44.0-74.0 15 Lymphocytes 43.8 % 15.0-45.0 15 Monocytes 9.7 % 2.0-13.0 15 Eosinophils 2.8 % 0.0-6.0 15 Basophils 0.5 % 0.0-2.0 15 Neutrophil Absolute 1.9 x10E3/uL 1.4-7.0 15 Lymphocytes Absolute 1.9 x10E3/uL 1.0-3.4 15 Monocyte Absolute 0.4 x10E3/uL 0.2-1.0 15 Eosinophil Absolute 0.1 x10E3/uL 0.0-0.5 15 Basophil Absolute 0.0 x10E3/uL 0.0-0.2 15 Lipid Panel 11/06/2011 Cholesterol, Total 160 mg/dL <200 15 Triglycerides 57 mg/dL <150 15 HDL Cholesterol 64 mg/dL High 40-60 15 Chol/HDL Cholesterol 2.5 15, 18 LDL Cholesterol, Calc. 85 mg/dL 15, 19 LDL/HDL Cholesterol 1.3 15, 20 Comprehensive Metabolic 11/06/2011 Glucose 81 mg/dL 70-100 15 BUN 18 mg/dL 4-18 15 Creatinine, Serum 0.71 mg/dL 0.50-1.10 15 Sodium 142 mmol/L 136-146 15 Potassium 4.3 mmol/L 3.5-5.3 15 Chloride 106 mmol/L 98-110 15 Carbon Dioxide 27 mmol/L 20-32 15 Albumin 4.2 g/dL 3.5-4.7 15 Protein, Total 7.2 g/dL 6.4-8.3 15 Calcium 9.5 mg/dL 8.4-10.4 15 Alkaline Phosphatase 94 U/L 10-118 15 Sgot (Ast) 21 U/L 3-40 15 SGPT (Alt) 18 U/L 7-50 15 Bilirubin, Total 0.30 mg/dL 0.30-1.20 15 Laboratory test finding 11/06/2011 Folic Acid(Folate)Serum >24.0 ng/ml 15, 21 Vitamin B-12 444 pg/mL 15, 22 Vitamin D, 25 Oh 40.7 ng/mL 30.0-100.0 15, 23 Magnesium 2.1 mg/dL 1.7-2.7 15 Phosphorous 4.0 mg/dL 2.8-4.7 15 Bilirubin, Direct 0.14 mg/dL 0.00-0.40 15 Laboratory test finding 10/09/2010 Vitamin A (Retinol) 70.0 g/dL 32.5- 78.0 24 Vitamin D, 25 Hydroxy 10/09/2010 25-Hydroxy Vitamin D2 <4.0 ng/mL () 25-Hydroxy Vitamin D3 52 ng/mL () 25-Hydroxy Vitamin D Total 52 ng/mL () 25 Comp Metabolic Panel 10/09/2010 Sodium 137 mmol/L 135-145 Potassium 3.9 mmol/L 3.5-5.0 Chloride 101 mmol/L 101-111 Co2 (Carbon Dioxide) 29.0 mmol/L 22-32 Anion Gap 7.0 mmol/L 2-11 26 Glucose 79 mg/dL 70-100 BUN 9 mg/dL 6-24 Creatinine 0.60 mg/dL 0.50-1.40 One Over Creatinine 1.60 BUN/Creatinine Ratio 15.0 8-20 Calcium 8.9 mg/dL 8.1-9.9 Total Protein 6.5 GM/DL 6.2-8.1 Albumin 3.7 GM/DL 3.6-5.4 Globulin 2.8 GM/DL 2-4 Albumin/Globulin Ratio 1.3 1-3 Bilirubin Total 0.5 mg/dL 0.4-1.5 27 Alkaline Phosphatase 76 U/L 30-110 Alt (SGPT) 31 U/L 14-54 Ast (Sgot) 33 U/L 12-42 eGFR Non- 104.2 > 60 eGFR 134.0 > 60 28 Iron & Iron Binding Capacity 10/09/2010 Iron Total 88 g/dL 28-170 Unsaturated Iron Binding 317 g/dL Total Iron Binding Capacity 405 g/dL 250-450 % Iron Saturation 22 % 15-55 Manual Differential 10/09/2010 Polysegmented Neutrophil 37 % Low 38-83 Lymphocyte 48 % High 25-47 Monocyte 8 % 0-13 Eosinophil 6 % 0-6 Atypical Lymph 1 % 0-6 Absolute Neutrophil Count 1.4 Anisocytosis SLIGHT Manual Diff Comments (SEE NOTE) 29 CBC With Electronic Diff 10/09/2010 White Blood Count 3.8 CUMM Low 4.8- 10.8 Red Cell Count 4.65 CUMM 4.2-5.4 Hemoglobin 13.2 g/dL 12.0-16.0 Hematocrit 40 % 35-47 Mean Corpuscular Volume 85 um3 79-97 Mean Corpuscular Hemoglob 28 pg 27-31 Mean Corpuscular HGB Cone 33 g/dL 32-36 Redcell Distribution WDTH 15 % 10.5-15 Platelet Count 192 CUMM 150-450 Mean Platelet Volume 8.1 um3 7.4-10.4 30 Laboratory test finding 10/09/2010 Ferritin 11 NG/ML Low 11.0-307 Vitamin B12 358 pg/mL 180-914 Folic Acid 19.4 NG/ML High 2-16 Laboratory test finding 07/01/2010 Hemoglobin A1c (Fma/CMC,CX) 4.8 % 4.1- 5.7 Vitamin D, 25 Hydroxy 12/05/2009 25-Hydroxy Vitamin D2 25 ng/mL () 25-Hydroxy Vitamin D3 34 ng/mL () 25-Hydroxy Vitamin D Total 59 ng/mL () 31 CBC With Electronic Diff 09/05/2009 White Blood Count 3.8 CUMM Low 4.8- 10.8 Red Cell Count 4.65 CUMM 4.2-5.4 Hemoglobin 12.9 g/dL 12.0-16.0 Hematocrit 39 % 35-47 Mean Corpuscular Volume 83 um3 79-97 Mean Corpuscular Hemoglob 28 pg 27-31 Mean Corpuscular HGB Cone 33 g/dL 32-36 Redcell Distribution WDTH 15 % 10.5-15 Platelet Count 201 CUMM 150-450 Mean Platelet Volume 8.1 um3 7.4-10.4 Gran % 48.8 % 38-83 Lymph % 39.0 % 25-47 Mononuclear % 7.9 % 1-9 Eosinophil % 3.8 % 0-6 Basophil % 0.5 % 0-2 Abs Lymphs 1.5 1.0-4.8 Abs Mononuclear 0.3 0-0.8 Absolute Neutrophil Count 1.9 1.5-7.7 Abs Eosinophils 0.1 0-0.6 Abs Basophils 0 0-0.2 Laboratory test finding 09/05/2009 Vitamin A (Retinol) 746 g/L 325-780 32 Comp Metabolic Panel 09/05/2009 Sodium 137 mmol/L 135-145 Potassium 4.0 mmol/L 3.5-5.0 Chloride 104 mmol/L 101-111 Co2 (Carbon Dioxide) 25.0 mmol/L 22-32 Anion Gap 8.0 mmol/L 2-11 33 Glucose 82 mg/dL 70-100 34 BUN 11 mg/dL 6-24 Creatinine 0.58 mg/dL 0.50-1.40 One Over Creatinine 1.70 BUN/Creatinine Ratio 19.0 8-20 Calcium 8.8 mg/dL 8.1-9.9 35 Total Protein 6.4 GM/DL 6.2-8.1 Albumin 3.5 GM/DL Low 3.6-5.4 Globulin 2.9 GM/DL 2-4 Albumin/Globulin Ratio 1.2 1-3 Bilirubin Total 0.5 mg/dL 0.4-1.5 36 Alkaline Phosphatase 64 U/L 30-110 Alt (SGPT) 20 U/L 14-54 Ast (Sgot) 27 U/L 12-42 eGFR Non- 115.6 > 60 eGFR 139.9 > 60 37 Tibc 09/05/2009 Iron Total 57 g/dL 28-170 Unsaturated Iron Binding 366 g/dL Total Iron Binding Capacity 424 g/dL 250-450 % Iron Saturation 14 % Low 15-55 Vitamin D, 25 Hydroxy 09/05/2009 25-Hydroxy Vitamin D2 5.8 ng/mL () 25-Hydroxy Vitamin D3 35 ng/mL () 25-Hydroxy Vitamin D Total 41 ng/mL () 38 Laboratory test finding 09/05/2009 Ferritin < 10 NG/ML Low 11.0-307 Vitamin B12 441 pg/mL 180-914 Folic Acid > 20.0 NG/ML High 2-16 Laboratory test finding 09/29/2008 Vitamin A (Retinol) 394 g/L 325-780 39 Vitamin D, 25 Hydroxy 09/29/2008 25-Hydroxy Vitamin D2 8.2 ng/mL () 25-Hydroxy Vitamin D3 21 ng/mL () 25-Hydroxy Vitamin D Total 29 ng/mL () 40 CBC With Electronic Diff 09/29/2008 White Blood Count 6.9 CUMM 4.8-10.8 Red Cell Count 4.76 CUMM 4.2-5.4 Hemoglobin 13.6 g/dL 12.0-16.0 Hematocrit 40 % 35-47 Mean Corpuscular Volume 83 um3 79-97 Mean Corpuscular Hemoglob 29 pg 27-31 Mean Corpuscular HGB Cone 34 g/dL 32-36 Redcell Distribution WDTH 14 % 10.5-15 Platelet Count 224 CUMM 150-450 Mean Platelet Volume 8.0 um3 7.4-10.4 Gran % 53.1 % 38-83 Lymph % 35.1 % 25-47 Mononuclear % 8.6 % 1-9 Eosinophil % 2.9 % 0-6 Basophil % 0.3 % 0-2 Abs Lymphs 2.4 1.0-4.8 Abs Mononuclear 0.6 0-0.8 Absolute Neutrophil Count 3.7 1.5-7.7 Abs Eosinophils 0.2 0-0.6 Abs Basophils 0 0-0.2 Comp Metabolic Panel 09/29/2008 Sodium 141 mmol/L 135-145 Potassium 4.3 mmol/L 3.5-5.0 Chloride 107 mmol/L 101-111 Co2 (Carbon Dioxide) 28.0 mmol/L 22-32 Anion Gap 6.0 mmol/L 2-11 41 Glucose 84 mg/dL 70-100 42 BUN 10 mg/dL 6-24 Creatinine 0.60 mg/dL 0.50-1.40 One Over Creatinine 1.60 BUN/Creatinine Ratio 16.7 8-20 Calcium 9.1 mg/dL 8.1-9.9 43 Total Protein 6.3 GM/DL 6.2-8.1 Albumin 3.2 GM/DL Low 3.6-5.4 Globulin 3.1 GM/DL 2-4 Albumin/Globulin Ratio 1.0 1-3 Bilirubin Total 0.5 mg/dL 0.4-1.5 Alkaline Phosphatase 82 U/L 30-110 Alt (SGPT) 21 U/L 14-54 Ast (Sgot) 21 U/L 12-42 Laboratory test finding 09/29/2008 Vitamin B12 551 pg/mL 180-914 Folic Acid > 20.0 NG/ML High 2-16 Tibc 09/29/2008 Iron Total 66 g/dL 28-170 Unsaturated Iron Binding 403 g/dL Total Iron Binding Capacity 469 g/dL High 250-450 % Iron Saturation 14 % Low 15-55 Laboratory test finding 05/22/2008 Hemoglobin A1c (Fma/CMC,CX) 5.3 % 4.1- 5.7 Vitamin D, 25 Hydroxy 09/24/2007 25-Hydroxy Vitamin D2 <4.0 ng/mL () 25-Hydroxy Vitamin D3 33 ng/mL () 25-Hydroxy Vitamin D Total 33 ng/mL () 44 Laboratory test finding 09/24/2007 Free Retinol 660 ug/L 360-1200 45 CBC With Electronic Diff 09/24/2007 White Blood Count 5.2 CUMM 4.8-10.8 Abs Basophils 0 0-0.2 Abs Eosinophils 0.1 0-0.6 Absolute Neutrophil Count 2.5 1.5-7.7 Abs Lymphs 2.1 1.0-4.8 Abs Mononuclear 0.5 0-0.8 Basophil % 0.2 % 0-2 Hematocrit 40 % 35-47 Hemoglobin 13.6 g/dL 12.0-16.0 Eosinophil % 2.8 % 0-6 Gran % 47.5 % 38-83 Lymph % 39.7 % 20-45 Mean Corpuscular HGB Cone 34 g/dL 32-36 Mean Corpuscular Hemoglob 28 pg 27-31 Mean Corpuscular Volume 83 um3 79-97 Mean Platelet Volume 8.3 um3 7.4-10.4 Mononuclear % 9.8 % High 1-9 Platelet Count 220 CUMM 150-450 Red Cell Count 4.79 CUMM 4.2-5.4 Redcell Distribution WDTH 14 % 10.5-15 Comp Metabolic Panel 09/24/2007 One Over Creatinine 1.25 Anion Gap 6.0 mmol/L 2-11 46 Albumin/Globulin Ratio 1.1 1-3 Albumin 3.5 GM/DL Low 3.6-5.4 Alkaline Phosphatase 68 U/L 30-110 Alt (SGPT) 21 U/L 14-54 Ast (Sgot) 23 U/L 12-42 BUN 13 mg/dL 6-24 Calcium 8.6 mg/dL Low 8.7-10.2 Chloride 108 mmol/L 101-111 Co2 (Carbon Dioxide) 24.0 mmol/L 22-32 Globulin 3.3 GM/DL 2-4 Glucose 84 mg/dL 70-105 Potassium 4.3 mmol/L 3.5-5.0 Sodium 138 mmol/L 135-145 Bilirubin Total 0.5 mg/dL 0.4-1.5 Total Protein 6.8 GM/DL 6.2-8.1 BUN/Creatinine Ratio 16.3 8-20 Creatinine 0.8 mg/dL 0.5-1.4 Tibc 09/24/2007 Iron Total 118 g/dL 28-170 Unsaturated Iron Binding 302 g/dL Total Iron Binding Capacity 420 g/dL 250-450 % Iron Saturation 28 % 15-55 Laboratory test finding 09/24/2007 Vitamin B12 342 pg/mL 180-914 Folic Acid > 20.0 NG/ML High 2-16 CBC With Electronic Diff 04/23/2007 White Blood Count 5.1 CUMM 4.8-10.8 Abs Basophils 0 0-0.2 Abs Eosinophils 0.2 0-0.6 Absolute Neutrophil Count 2.6 1.5-7.7 Abs Lymphs 1.9 1.0-4.8 Abs Mononuclear 0.4 0-0.8 Basophil % 0.3 % 0-2 Hematocrit 40 % 35-47 Hemoglobin 13.7 g/dL 12.0-16.0 Eosinophil % 3.4 % 0-6 Gran % 50.0 % 38-83 Lymph % 37.5 % 20-45 Mean Corpuscular HGB Cone 34 g/dL 32-36 Mean Corpuscular Hemoglob 29 pg 27-31 Mean Corpuscular Volume 85 um3 79-97 Mean Platelet Volume 8.1 um3 7.4-10.4 Mononuclear % 8.8 % 1-9 Platelet Count 242 CUMM 150-450 Red Cell Count 4.74 CUMM 4.2-5.4 Redcell Distribution WDTH 15 % 10.5-15 Laboratory test finding 04/23/2007 Vitamin B12 458 pg/mL 180-914 Hemoglobin A1c 5.4 % <6.0 47 Comp Metabolic Panel 04/23/2007 One Over Creatinine 1.42 Anion Gap 5.0 mmol/L 2-11 48 Albumin/Globulin Ratio 1.2 1-3 Albumin 3.4 GM/DL Low 3.6-5.4 Alkaline Phosphatase 73 U/L 30-110 Alt (SGPT) 19 U/L 14-54 Ast (Sgot) 23 U/L 12-42 BUN 11 mg/dL 6-24 Calcium 8.2 mg/dL Low 8.7-10.2 Chloride 108 mmol/L 101-111 Co2 (Carbon Dioxide) 29.0 mmol/L 22-32 Globulin 2.9 GM/DL 2-4 Glucose 81 mg/dL 70-105 Potassium 4.7 mmol/L 3.5-5.0 Sodium 142 mmol/L 135-145 Bilirubin Total 0.6 mg/dL 0.4-1.5 Total Protein 6.3 GM/DL 6.2-8.1 BUN/Creatinine Ratio 15.7 8-20 Creatinine 0.7 mg/dL 0.5-1.4 Lipid Profile 04/23/2007 Cholesterol/HDL Ratio 2.64 AVERAGE 1-4.44 (Trig/Chol/HDL) Cholesterol 156 mg/dL Less Than 200 49 Triglyceride 72 mg/dL 40-200 High Density Lipoprotein 59 mg/dL 40-60 Low Density Lipoprotein 83 mg/dL Less Than 100 50 Laboratory test finding 04/23/2007 TSH 1.30 MIU/ML 0.34-5.60 Comprehensive Metabolic 05/20/2006 Glucose 73 mg/dL 70-100 51 BUN 15 mg/dL 4-18 51 Sodium 140 mmol/L 136-146 51 Potassium 4.4 mmol/L 3.5-5.3 51 Chloride 107 mmol/L 98-110 51 Carbon Dioxide 21 mmol/L 20-32 51 Albumin 3.9 g/dL 3.5-4.7 51 Protein, Total 6.8 g/dL 6.4-8.2 51 Calcium 9.2 mg/dL 8.4-10.4 51 Alkaline Phosphatase 87 U/L 10-118 51 Sgot (Ast) 23 U/L 3-30 51 SGPT (Alt) 21 U/L 7-40 51 Bilirubin, Total 0.30 mg/dL 0.30-1.20 51 Creatinine, Serum 0.9 mg/dL 0.5-1.2 51 CBC 05/20/2006 WBC 5.8 x103 4.3-10.9 51 RBC 4.62 x106 3.80-5.30 51 Hemoglobin 12.6 g/dL 11.8-15.8 51 Hematocrit 37.4 % 35.0-47.0 51 MCV 80.9 fl Low 82.0-98.0 51 MCH 27.3 pg Low 27.5-33.5 51 MCHC 33.7 g/dL 32.0-36.0 51 RDW 15.7 % High 11.5-14.5 51 Platelet Count 224 x103 130-400 51 MPV 8.7 fl 6.5-10.5 51 Segmented Neutrophils 47.6 % 44.0-74.0 51 Lymphocytes 41.9 % 15.0-45.0 51 Monocytes 7.2 % 2.0-13.0 51 Eosinophils 2.8 % 0.0-6.0 51 Basophils 0.5 % 0.0-2.0 51 Neutrophil Absolute 2.8 x103 1.4-7.0 51 Lymphocytes Absolute 2.4 x103 1.0-3.4 51 Monocyte Absolute 0.4 x103 0.2-1.0 51 Eosinophil Absolute 0.2 x103 0.0-0.5 51 Basophil Absolute 0.0 x103 0.0-0.2 51 Anisocytosis 1+ 51 Laboratory test finding 05/20/2006 Hemoglobin A1c 5.4 % 51, 52 TSH (Thyrotropin) 1.320 uIU/ml 0.350-5.500 51 Vitamin B-12 433 pg/mL 51, 53 Folic Acid(Folate)Serum >24.0 ng/ml 51, 54 GFR (Calculated) >60 51, 55 Laboratory test finding 10/10/2005 Hemoglobin A1c (F/C/CTX) 4.7 % 4.1- 5.7 CBC 01/16/2005 WBC 6.2 x103 4.3-10.9 RBC 4.95 x106 3.80-5.30 Hemoglobin 14.6 g/dL 11.8-15.8 Hematocrit 42.2 % 35.0-47.0 MCV 85.2 fl 82.0-98.0 MCH 29.6 pg 27.5-33.5 MCHC 34.7 g/dL 32.0-36.0 RDW 13.9 % 11.5-14.5 Platelet Count 243 x103 130-400 MPV 8.4 fl 6.5-10.5 Segmented Neutrophils 39.9 % Low 44.0-74.0 Lymphocytes 48.2 % High 15.0-45.0 Monocytes 8.5 % 2.0-13.0 Eosinophils 3.0 % 0.0-6.0 Basophils 0.4 % 0.0-2.0 Neutrophil Absolute 2.5 x103 1.4-7.0 Lymphocytes Absolute 3.0 x103 1.0-3.4 Monocyte Absolute 0.5 x103 0.2-1.0 Eosinophil Absolute 0.2 x103 0.0-0.5 Basophil Absolute 0.0 x103 0.0-0.2 Laboratory test finding 01/16/2005 Iron 86 g/dL 30-158 Vitamin B-12 784 pg/mL 56 Laboratory test finding 11/12/2004 Sedimentation Rate 7 MM/HR 0-20 Uric Acid 6.2 mg/dL 2.7-8.4 Antinuclear AB (Esme) NEGATIVE Negative 57 Comprehensive Metabolic 07/02/2004 Glucose 86 mg/dL 61.0 - 110.0 BUN 10 mg/dL 4.0 - 18.0 Creatinine, Serum 0.7 mg/dL 0.5 - 1.2 Sodium 144 mmol/L 136.0 - 146.0 Potassium 4.5 mmol/L 3.5 - 5.3 Chloride 107 mmol/L 98.0 - 107.0 Carbon Dioxide 26 mmol/L 20.0 - 32.0 Albumin 3.7 g/dL 3.5 - 4.7 Protein, Total 6.5 g/dL 6.4 - 8.2 Calcium 9.0 mg/dL 8.4 - 10.6 Alkaline Phosphatase 93 U/L 10.0 - 118.0 Sgot (Ast) 22 U/L 3.0 - 30.0 SGPT (Alt) 21 U/L 7.0 - 40.0 Bilirubin, Total 0.47 mg/dL 0.3 - 1.2 Lipid Profile 07/02/2004 Triglycerides 70 mg/dL 58 Cholesterol, Total 123 mg/dL 120.0 - 200.0 59 HDL Cholesterol 42 mg/dL 40.0 - 60.0 LDL Cholesterol, Calc. 67 mg/dL <130 60 LDL/HDL Cholesterol 1.6 61 Chol/HDL Cholesterol 2.9 62 CBC 07/02/2004 WBC 6.1 x10*3 4.3 - 10.9 RBC 4.92 x10*6 3.8 - 5.3 Hemoglobin 14.5 g/dL 11.8 - 15.8 Hematocrit 42.8 % 35.0 - 47.0 MCV 86.8 fl 82.0 - 98.0 MCH 29.5 pg 27.5 - 33.5 MCHC 33.9 g/dL 32.0 - 36.0 RDW 14.2 % 11.5 - 14.5 Platelet Count 220 x10*3 130.0 - 400.0 MPV 8.9 fl 6.5 - 10.5 Segmented Neutrophils 54.3 % 44.0 - 74.0 Lymphocytes 36.6 % 15.0 - 45.0 Monocytes 6.4 % 2.0 - 13.0 Eosinophils 2.4 % 0.0 - 6.0 Basophils 0.3 % 0.0 - 2.0 Neutrophil Absolute 3.3 x10*3 1.4 - 7.0 Lymphocytes Absolute 2.2 x10*3 1.0 - 3.4 Monocyte Absolute 0.4 x10*3 0.2 - 1.0 Eosinophil Absolute 0.1 x10*3 0.0 - 0.5 Basophil Absolute 0.0 x10*3 0.0 - 0.2 Laboratory test finding 07/02/2004 Hemoglobin A1c 4.9 % 63 Thyrotropin (TSH) 0.980 uIU/ml 0.35 - 5.5 Calcium,Ionized,Serum 5.5 mg/dL 4.5 - 5.6 Vitamin B-12 1011 pg/mL 64 Folic Acid(Folate)Serum >24.0 ng/ml 65 Iron/Tibc,%Sat Group 07/02/2004 Iron 100 g/dL 30.0 - 158.0 Total Iron Binding Cap. 323 g/dL 250.0 - 450.0 % Iron Saturation 30.8 % 13.0 - 45.0 Laboratory test finding 07/02/2004 GFR (Calculated) >60 66 Comprehensive Metabolic 03/22/2003 Glucose 129 mg/dL High 61.0 - 110.0 BUN 13 mg/dL 4.0 - 18.0 Creatinine, Serum 0.7 mg/dL 0.5 - 1.2 Sodium 140 mmol/L 136.0 - 145.0 Potassium 4.3 mmol/L 3.5 - 5.3 67 Chloride 109 mmol/L High 98.0 - 107.0 Carbon Dioxide 26 mmol/L 23.0 - 33.0 Albumin 3.6 g/dL 3.6 - 4.5 Protein, Total 7.3 g/dL 6.2 - 8.0 Calcium 9.0 mg/dL 8.4 - 10.2 Alkaline Phosphatase 94 U/L 42.0 - 127.0 Sgot (Ast) 25 U/L 9.0 - 37.0 SGPT (Alt) 25 U/L 7.0 - 42.0 Bilirubin, Total 0.40 mg/dL 0.2 - 1.3 Lipid Profile 03/22/2003 Triglycerides 203 mg/dL 37.0 - 241.0 Cholesterol, Total 203 mg/dL High 120.0 - 200.0 68 HDL Cholesterol 45 mg/dL 40.0 - 60.0 LDL Cholesterol, Calc. 117 mg/dL <130 69 LDL/HDL Cholesterol 2.6 70 Chol/HDL Cholesterol 4.5 71 Laboratory test finding 03/22/2003 Hemoglobin A1c 5.6 % 72 Glucose/Hgaic Profile 09/13/2002 Glucose, Serum 90 mg/dL 70 - 105 (Fma/CMC (Fma/CMC/CTX) Hemoglobin A1c (F/C/CTX) 5.5 % 4.1-5.7 Laboratory test finding 03/31/2002 Hemoglobin A1c 5.9 % 73 Glucose 98 mg/dL 61.0 - 112.0 Lipid Profile 12/21/2001 Triglycerides 233 mg/dL 37.0 - 241.0 Cholesterol, Total 191 mg/dL 120.0 - 200.0 74 HDL Cholesterol 46 mg/dL 35.0 - 9999.0 LDL Cholesterol 98 mg/dL <130 75 LDL/HDL Cholesterol 2.1 76 Chol/HDL Cholesterol 4.2 77 Hepatic (Liver) Panel 12/21/2001 Albumin 3.2 g/dL Low 3.6 - 4.5 Protein, Total 6.8 g/dL 6.2 - 8.0 Alkaline Phosphatase 88 U/L 42.0 - 127.0 Sgot (Ast) 20 U/L 9.0 - 37.0 SGPT (Alt) 22 U/L 7.0 - 42.0 Bilirubin, Total 0.40 mg/dL 0.2 - 1.3 Bilirubin, Direct 0.20 mg/dL 0.0 - 0.6 Bilirubin, Indirect 0.20 mg/dL 0.1 - 1.1 Comprehens.+ Hepatic 05/17/2001 Glucose 102 mg/dL 61.0 - 112.0 BUN 12 mg/dL 4.0 - 18.0 Creatinine, Serum SEE BELOW Sodium 142 mmol/L 136.0 - 145.0 Potassium 4.5 mmol/L 3.4 - 5.0 Chloride 106 mmol/L 98.0 - 107.0 Carbon Dioxide 26 mmol/L 23.0 - 33.0 Albumin 3.3 g/dL Low 3.6 - 4.5 Calcium 8.9 mg/dL 8.4 - 10.2 78 Alkaline Phosphatase 100 U/L 42.0 - 127.0 Sgot (Ast) 18 U/L 9.0 - 37.0 SGPT (Alt) 15 U/L 7.0 - 42.0 Bilirubin, Total 0.30 mg/dL 0.2 - 1.3 Bilirubin, Direct 0.20 mg/dL 0.0 - 0.6 Bilirubin, Indirect 0.10 mg/dL 0.1 - 1.1 Creatinine, Serum 0.7 mg/dL 0.5 - 1.2 Protein, Total 7.6 g/dL 6.2 - 8.0 Lipid Profile 05/17/2001 Triglycerides 269 mg/dL High 37.0 - 241.0 Cholesterol, Total 240 mg/dL High 120.0 - 200.0 79 HDL Cholesterol 46 mg/dL 35.0 - 9999.0 LDL Cholesterol 140 mg/dL <130 80 LDL/HDL Cholesterol 3.0 81 Chol/HDL Cholesterol 5.2 82 Laboratory test finding 05/17/2001 Hemoglobin A1c 5.7 % 83 Laboratory test finding 09/08/2000 Hemoglobin A1c 6.3 % Detail 84 Hepatic (Liver) Panel 09/08/2000 Albumin 3.7 g/dL 3.6 - 4.5 Protein, Total 7.1 g/dL 6.2 - 8.0 Alkaline Phosphatase 94 U/L 42.0 - 127.0 Sgot (Ast) 24 U/L 9.0 - 37.0 SGPT (Alt) 34 U/L 7.0 - 42.0 Bilirubin, Total 0.30 mg/dL 0.2 - 1.3 Bilirubin, Direct 0.30 mg/dL 0.0 - 0.6 Bilirubin, Indirect 0.00 mg/dL Low 0.1 - 1.1 Liver Profile-[facility] 06/17/2000 Albumin 3.7 g/dL 3.6-4.5 Total Protein 7.2 g/dL 6.2-8.0 Alkaline Phosphatase 90 U/L 42-127 Ast (Sgot) 20 U/L 9-37 Alt (SGPT) 40 U/L 7-42 Bilirubin, Total 0.50 mg/dL 0.2-1.30 Bilirubin, Direct 0.40 mg/dL 0.00-0.60 Bilirubin, Indirect 0.10 mg/dL 0.10-1.10 Liver Function (Fma) 03/14/2000 Albumin 4.0 GM/DL 3.80 - 5.50 Alkaline Phosphatase 94 U/L 39-130 Bilirubin, Direct 0.0 mg/dL 0-0.6 Bilirubin, Total 0.2 mg/dL 0.2-1.3 Ast (Sgot) 24 U/L 9-44 Alt (SGPT) 34 U/L 10-40 Total Protein 8.0 g/dL 6.3-8.1 Bilirubin, Indirect 0.20 ml/dl 0.10-1.0 Laboratory test finding 03/14/2000 Hemoglobin A1c 5.5 % 4.1-5.7 Liver Profile-[facility] 12/12/1999 Albumin 3.8 g/dL 3.6-4.5 Alkaline Phosphatase 88 U/L 42-127 Ast (Sgot) 23 U/L 9-37 Alt (SGPT) 27 U/L 7-42 Total Bilirubin 0.40 mg/dL 0.2-1.3 Bilirubin, Direct 0.30 mg/dL 0.00-0.60 Bilirubin, Indirect 0.10 mg/dL 0.10-1.10 Laboratory test finding 12/12/1999 Total Protein 7.2 g/dL 6.2-8.0 1 1 sst 2 Vitamin D deficiency has been defined by the [place] [employer] and an Endocrine Society practice guideline as a level of serum 25-OH vitamin D less than 20 ng/mL (1,2). The Endocrine Society went on to further define vitamin D insufficiency as a level between 21 and 29 ng/mL (2). 1. IOM ([place] [employer]). 2010. Dietary reference intakes for calcium and D. [place]: [employer]. 2. Lane Johnson, Juan Diego ROMANO, et al. Evaluation, treatment, and prevention of vitamin D deficiency: an Endocrine Society clinical practice guideline. JCEM. 2010; 96(7):1911-30. 3 SRC:urine cc 1 miller top 4 Source of Specimen: urine cc 1 miller top 5 Source of Specimen: urine cc 1 miller top 6 2 sst 7 According to ATP-III Guidelines, HDL-C >59 mg/dL is considered a negative risk factor for CHD. 8 Vitamin D deficiency has been defined by the [place] [employer] and an Endocrine Society practice guideline as a level of serum 25-OH vitamin D less than 20 ng/mL (1,2). The Endocrine Society went on to further define vitamin D insufficiency as a level between 21 and 29 ng/mL (2). 1. IOM ([place] [employer]). 2010. Dietary reference intakes for calcium and D. [place]: The [employer]. 2. Lane Johnson, Juan Diego ROMANO, et al. Evaluation, treatment, and prevention of vitamin D deficiency: an Endocrine Society clinical practice guideline. JCEM. 2010; 96(7):1911-30. 9 FASTING; 1SST 10 CHOL/HDL Risk Ratio Levels MALE FEMALE 1/2 X Average 3.4 3.3 Average 5.0 4.4 2 X Average 9.5 7.0 3 X Average 24.0 11.0 11 Optimal under 100 mg/dl Near or above Optimal 100 - 129 mg/dl Borderline High 130 - 159 mg/dl High 160 - 189 mg/dl Very High above 190 mg/dl 12 LDL/HDL Risk Ratio Levels MALE FEMALE 1/2 X Average 1.0 1.5 Average 3.6 3.2 2 X Average 6.3 5.0 3 X Average 8.0 6.1 13 >59 mL/min/1.73m2 14 >59 mL/min/1.73m2 Note: Persistent reduction for 3 months or more in an eGFR <60 mL/min/1.73m2 defines CKD. Patients with eGFR values >=60 mL/min/1.73m2 may also have CKD if evidence of persistent proteinuria is present. Additional information may be found at [email or web address]. 15 FASTING; 2 sst 1 lav 16 >59 mL/min/1.73m2 17 >59 mL/min/1.73m2 Note: Persistent reduction for 3 months or more in an eGFR <60 mL/min/1.73m2 defines CKD. Patients with eGFR values >=60 mL/min/1.73m2 may also have CKD if evidence of persistent proteinuria is present. Additional information may be found at [email or web address]. 18 CHOL/HDL Risk Ratio Levels MALE FEMALE 1/2 X Average 3.4 3.3 Average 5.0 4.4 2 X Average 9.5 7.0 3 X Average 24.0 11.0 19 Optimal under 100 mg/dl Near or above Optimal 100 - 129 mg/dl Borderline High 130 - 159 mg/dl High 160 - 189 mg/dl Very High above 190 mg/dl 20 LDL/HDL Risk Ratio Levels MALE FEMALE 1/2 X Average 1.0 1.5 Average 3.6 3.2 2 X Average 6.3 5.0 3 X Average 8.0 6.1 21 Greater than or equal to 5.4 is normal. . 22 Greater than or equal to 211 is normal. . 23 Vitamin D deficiency has been defined by the [place] [employer] and an Endocrine Society practice guideline as a level of serum 25-OH vitamin D less than 20 ng/mL (1,2). The Endocrine Society went on to further define vitamin D insufficiency as a level between 21 and 29 ng/mL (2). 1. IOM ([place] [employer]). 2010. Dietary reference intakes for calcium and D. [place]: The [employer]. 2. Arcenio MF, Lane [place], Juan Diego ROMANO, et al. Evaluation, treatment, and prevention of vitamin D deficiency: an Endocrine Society clinical practice guideline. JCEM. 2010; 96(7):1911-30. 24 Test Performed by: [facility] [address], [place] [address] Studio Director: Sara Alvarez, Ph.D. 25 -- REFERENCE VALUE -- 25-HYDROXY D TOTAL (D2+D3) Optimum levels in the normal population are 25-80 Test Performed by: [facility] Pathology [address] [place] [address] Studio Director: Sadi Anderson III, M.D. 26 Anion gap measurement may be of limited value in the presence of any alkalosis, especially in a combined acid base disorder. . 27 A metabolite of Naproxen, O-desmethylnaproxen, has been shown to interfere with the Jendrassik-Paradis method for measuring total bilirubin. Samples from patients who have taken Naproxen have shown spurious elevation in total bilirubin levels. 28 Because ethnic data is not always readily available, this report includes an eGFR for both -Americans and non- Americans. The National Kidney Disease Education Program (NKDEP) does not endorse the use of the MDRD equation for patients that are not between the ages of 18 and 70, are , have extremes of body size, muscle mass, or nutritional status, or are non- or non-. According to the National Kidney Foundation, irrespective of diagnosis, the stage of the disease is based on the level of kidney function: Stage Description GFR(mL/min/1.73 m(2)) 1 Kidney damage with normal or decreased GFR 90 2 Kidney damage with mild decrease in GFR 60-89 3 Moderate decrease in GFR 30-59 4 Severe decrease in GFR 15-29 5 Kidney failure <15 (or dialysis) 29 Neutropenia noted. CBC AND SMEAR REVIEWED BY JOHNATHON NICHOLE MD 30 Neutropenia % Lymphocytosis % 31 -- REFERENCE VALUE -- 25-HYDROXY D TOTAL (D2+D3) Optimum levels in the normal population are 25-80 Test Performed by: [facility] D[facility] of Lab Med and Pathology [address] [place] [address] Studio Director: Sadi Anderson III, M.D. 32 Test Performed by: [facility] Pathology [address] [place] [address] Studio Director: Sadi Anderson III, M.D. 33 Anion gap measurement may be of limited value in the presence of any alkalosis, especially in a combined acid base disorder. . 34 Note change in reference range as of 04/06/08. The change was based on recommendations from the [place] [employer]. 35 Please note change in reference range effective 08 . 36 A metabolite of Naproxen, O-desmethylnaproxen, has been shown to interfere with the Jendrassik-Chelle method for measuring total bilirubin. Samples from patients who have taken Naproxen have shown spurious elevation in total bilirubin levels. 37 Because ethnic data is not always readily available, this report includes an eGFR for both -Americans and non- Americans. The National Kidney Disease Education Program (NKDEP) does not endorse the use of the MDRD equation for patients that are not between the ages of 18 and 70, are , have extremes of body size, muscle mass, or nutritional status, or are non- or non-. According to the National Kidney Foundation, irrespective of diagnosis, the stage of the disease is based on the level of kidney function: Stage Description GFR(mL/min/1.73 m(2)) 1 Kidney damage with normal or decreased GFR 90 2 Kidney damage with mild decrease in GFR 60-89 3 Moderate decrease in GFR 30-59 4 Severe decrease in GFR 15-29 5 Kidney failure <15 (or dialysis) 38 -- REFERENCE VALUE -- 25-HYDROXY D TOTAL (D2+D3) Optimum levels in the normal population are 25-80 Test Performed by: [facility] Path[facility] [address] [place] [address] Studio Director: Sadi Anderson III, M.D. 39 Test Performed by: [facility] [address] [place] [address] Studio Director: Sadi Anderson III, M.D. 40 -- REFERENCE VALUE -- 25-HYDROXY D TOTAL (D2+D3) Optimum levels in the normal population are 25-80 Test Performed by: [facility] [address] [place] [address] Studio Director: Sadi Anderson III, M.D. 41 Anion gap measurement may be of limited value in the presence of any alkalosis, especially in a combined acid base disorder. . 42 Note change in reference range as of 04/06/08. The change was based on recommendations from the [place] [employer]. 43 Please note change in reference range effective 08 . 44 -- REFERENCE VALUE -- 25-HYDROXY D TOTAL (D2+D3) Optimum levels in the normal population are 25-80 Test Performed by: [facility] [address] [place] [address] Studio Director: Sadi Anderson III, M.D. 45 Specimen received unprotected from light. Interpret results with caution. Test Performed by: [facility] [address] [place] [address] Studio Director: Sadi Anderson III, M.D. 46 Anion gap measurement may be of limited value in the presence of any alkalosis, especially in a combined acid base disorder. . 47 THERAPEUTIC TARGET FOR THE TREATMENT OF DIABETES MELLITUS PATIENTS IS <7% HBA1C, AND IN SELECTIVE PATIENTS <6.0%. PLEASE REFER TO [employer] [employer] DIABETIC CARE GUIDELINES FOR FURTHER INFORMATION. 48 Anion gap measurement may be of limited value in the presence of any alkalosis, especially in a combined acid base disorder. . 49 Classification: Desirable . 50 CALCULATED LDL APPROXIMATES THE VALUE OF A DIRECT LDL MEASUREMENT. Classification: Optimal Level . 51 1 LAV; 1 SST TUBE; 1 POUR OFF RED TOP 52 HGBA1C (%) GLUCOSE CONTROL >8 Action Suggested 7-8 Good Control <7 Goal 6-7 Near Normal Glycem <6 Non-diabetic Level . 53 Greater than or equal to 211 is normal. . 54 Greater than or equal to 5.4 is normal. . 55 mL/min/1.73m2 . Normal Function or Mild Renal Disease, if clinically at risk: >or=60 Moderately decreased: 30 - 59 Severely decreased: 15 - 29 Renal Failure: <15 . Please note that the MDRD equation requires an additional adjustment for -Americans (multiply the GFR result by 1.210). . Glomerular Filtration Rate (GFR) is estimated based on the MDRD equation, which assumes a steady state for creatinine (Connie Int Med 139/2 137-149, 2003), as recommended by the National Kidney Disease Education Program in conjunction with the National Institutes of Health and the National Kidney Foundation. . Clinical conditions in which it may be necessary to measure GFR by using clearance methods include extremes of age and body size, severe malnutrition or obesity, diseases of skeletal muscle, paraplegia or quadriplegia, vegetarian diet, rapidly changing kidney function, and calculation of the dose of potentially toxic drugs that are excreted by the kidneys. . 56 Greater than or equal to 211 is normal. . 57 (Performed by Enzyme Immunoassay, EIA) 58 Triglyceride Risk Levels: Normal : <150 mg/dl Borderline : 150-199 mg/dl High : 200-499 mg/dl Very High : >500 mg/dl . 59 Cholesterol Risk Levels (NIH) Recommended: under 200 mg/dl Borderline : 200-239 mg/dl High Risk : Above 240 mg/dl . 60 The National Cholesterol Education Program recommends the following ranges for LDL Cholesterol: Optimal under 100 mg/dl Near or above Optimal 100 - 129 mg/dl Borderline High 130 - 159 mg/dl High 160 - 189 mg/dl Very High above 190 mg/dl . 61 LDL/HDL Risk Ratio Levels MALE FEMALE 1/2 X Average 1.00 1.47 Average 3.55 3.22 2 X Average 6.25 5.03 3 X Average 7.99 6.14 . 62 CHOL/HDL Risk Ratio Levels MALE FEMALE 1/2 X Average 3.4 3.3 Average 5.0 4.4 2 X Average 9.5 7.0 3 X Average 24.0 11.0 . 63 HGBA1C (%) GLUCOSE CONTROL >8 Action Suggested 7-8 Good Control <7 Goal 6-7 Near Normal Glycem <6 Non-diabetic Level . 64 Greater than or equal to 211 is normal. . 65 Greater than or equal to 5.4 is normal. . 66 . Normal Function or Mild Renal Disease, if clinically at risk: >or=60 Moderately decreased: 30 - 59 Severely decreased: 15 - 29 Renal Failure: <15 . Please note that the MDRD equation requires an additional adjustment for -Americans (multiply the GFR result by 1.210). . Glomerular Filtration Rate (GFR) is estimated based on the MDRD equation, which assumes a steady state for creatinine (Connie Int Med 139/2 137-149, 2003), as recommended by the National Kidney Disease Education Program in conjunction with the National Institutes of Health and the National Kidney Foundation. . Clinical conditions in which it may be necessary to measure GFR by using clearance methods include extremes of age and body size, severe malnutrition or obesity, diseases of skeletal muscle, paraplegia or quadriplegia, vegetarian diet, rapidly changing kidney function, and calculation of the dose of potentially toxic drugs that are excreted by the kidneys. . 67 Effective December 08, 2002 please note change in reference range. 68 Cholesterol Risk Levels (NIH) Recommended: under 200 mg/dl Borderline : 200-239 mg/dl High Risk : Above 240 mg/dl . 69 LDL Cholesterol Risk Levels (NIH) Recommended: under 130 mg/dl Borderline: 131 - 159 mg/dl High Risk: above 160 mg/dl . 70 LDL/HDL Risk Ratio Levels MALE FEMALE 1/2 X Average 1.00 1.47 Average 3.55 3.22 2 X Average 6.25 5.03 3 X Average 7.99 6.14 . 71 CHOL/HDL Risk Ratio Levels MALE FEMALE 1/2 X Average 3.4 3.3 Average 5.0 4.4 2 X Average 9.5 7.0 3 X Average 24.0 11.0 . 72 HGBA1C (%) GLUCOSE CONTROL >8 Action Suggested 7-8 Good Control <7 Goal 6-7 Near Normal Glycem <6 Non-diabetic Level . 73 HGBA1C (%) GLUCOSE CONTROL >8 Action Suggested 7-8 Good Control <7 Goal 6-7 Near Normal Glycem <6 Non-diabetic Level . 74 Cholesterol Risk Levels (NIH) Recommended: under 200 mg/dl Borderline : 200-239 mg/dl High Risk : Above 240 mg/dl . 75 LDL Cholesterol Risk Levels (NIH) Recommended: under 130 mg/dl Borderline: 131 - 159 mg/dl High Risk: above 160 mg/dl . 76 LDL/HDL Risk Ratio Levels MALE FEMALE 1/2 X Average 1.00 1.47 Average 3.55 3.22 2 X Average 6.25 5.03 3 X Average 7.99 6.14 . 77 CHOL/HDL Risk Ratio Levels MALE FEMALE 1/2 X Average 3.4 3.3 Average 5.0 4.4 2 X Average 9.5 7.0 3 X Average 24.0 11.0 . 78 Effective December Please Note CHANGE IN REFERENCE RANGE. . 79 Cholesterol Risk Levels (NIH) Recommended: under 200 mg/dl Borderline : 200-239 mg/dl High Risk : Above 240 mg/dl . 80 LDL Cholesterol Risk Levels (NIH) Recommended: under 130 mg/dl Borderline: 131 - 159 mg/dl High Risk: above 160 mg/dl . 81 LDL/HDL Risk Ratio Levels MALE FEMALE 1/2 X Average 1.00 1.47 Average 3.55 3.22 2 X Average 6.25 5.03 3 X Average 7.99 6.14 . 82 CHOL/HDL Risk Ratio Levels MALE FEMALE 1/2 X Average 3.4 3.3 Average 5.0 4.4 2 X Average 9.5 7.0 3 X Average 24.0 11.0 . 83 HGBA1C (%) GLUCOSE CONTROL >8 Action Suggested 7-8 Good Control <7 Goal 6-7 Near Normal Glycem <6 Non-diabetic Level . 84 GLUCOSE CONTROL: > 8 ACTION SUGGESTED 7-8 GOOD CONTROL <7 GOAL 6-7 NEAR NORMAL GLYCEM <6 NON DIABETIC LEVEL HGBA1C (%) GLUCOSE CONTROL >8 Action Suggested 7-8 Good Control <7 Goal 6-7 Near Normal Glycem <6 Non-diabetic Level . Procedures Date CPT Code Description Status Comment 02/09/2018 Mammogram Completed 08/17/2017 Diabetic Retinal Eye Exam Completed goes [id number], hx of macular degeneration Dr. Rivero. 06/26/2017 Colonoscopy Completed 02/04/2017 Mammogram Completed 02/04/2016 Mammogram Completed 10/10/2011 Mammogram Completed 07/01/2010 44475 Finger Or Heel Stick Completed 06/28/2010 Mammogram Completed 06/22/2009 Mammogram Completed 06/21/2008 Mammogram Completed 06/04/2007 Colonoscopy Completed 05/28/2007 Mammogram Completed 08/17/2006 Bone Mineral Density Test Completed 05/22/2006 Mammogram Completed 09/08/2000 68590 Electrocardiogram Complete Completed Encounters Type Date Location Provider CPT E/M Dx Office Visit 04/20/2018 2:40p Main Office Tram Jolly M.D. 44642 E66.8 K21.9 Office Visit 03/09/2018 10:40a Main Office Tram Jolly M.D. 25937 Z00.01 K21.9 E66.8 M17.0 F41.9 F32.9 Z82.49 Office Visit 10/21/2017 2:40p Main Office Tram Jolly M.D. 88636 K21.9 F43.21 E66.8 M17.0 Office Visit 08/13/2017 9:40a [facility] Tram Jolly M.D. 90550 F43.21 K21.9 Office Visit 06/09/2017 9:40a Main Office Tram Jolly M.D. 61999 M17.0 F43.21 K21.9 E66.8 Office Visit 02/03/2017 9:00a [facility] Tram Jolly M.D. 41209 Z00.00 K44.9 F43.22 F43.21 E66.8 M17.0 E55.9 Office Visit 11/27/2016 9:20a [facility] Tram Jolly M.D. 36597 R11.0 E66.8 Office Visit 07/30/2016 3:00p Main Office Tram Jolly M.D. 39732 F43.21 F43.22 E66.8 M17.9 Office Visit 07/14/2016 10:30a [facility] Nadine Haines [facility]- 65072 N39.0 Office Visit 03/03/2016 2:40p Main Office Tram Jolly M.D. 05044 E55.9 F43.21 F43.22 M25.562 Office Visit 01/31/2016 1:00p [facility] Tram Jolly M.D. 47960 Z00.00 Z12.31 E55.9 F43.21 F43.22 G47.33 H35.31 M25.562 Z23 Office Visit 09/27/2012 2:10p Main Office Jose Serrato M.D. 93730 465.9 382.9 Office Visit 09/09/2012 9:00a [facility] GWEN Martinez 24487 300.00 627.2 Office Visit 06/14/2012 4:00p Main Office GWEN Martinez 49480 627.2 Office Visit 05/03/2012 1:15p Main Office GWEN Martinez 49091 300.00 Office Visit 04/20/2012 1:30p Main Office Palacionp-C 92052 300.00 311 Office Visit 03/17/2012 2:40p [facility] Mariela Bradshaw 84779 300.00 M.D. 311 Office Visit 12/25/2011 4:20p Main Office Mariela Bradshaw M.D. 98607 300.00 Office Visit 11/25/2011 4:00p Main Office Mariela Bradshaw M.D. 90231 311 V45.86 Office Visit 09/30/2011 4:40p Main Office Mariela Bradshaw M.D. 63494 311 727.43 V45.86 278.00 Office Visit 07/01/2010 3:30p Main Office Rosibel Jason M.D. 55082 250.00 719.46 354.0 Office Visit 06/25/2009 5:40p Main Office Rosibel Jason 82372 311 M.D. Office Visit 04/26/2009 11:00a [facility] Rosibel Jason 83537 300.4 M.D. Office Visit 05/22/2008 4:10p Main Office Rosibel Jason 34715 250.00 M.DJesus 401.9 274.9 Office Visit 04/15/2007 4:10p Main Office Rosibel Jason M.D. 16030 250.00 274.9 V45.89 401.9 272.4 Office Visit 05/13/2006 4:40p Main Office Rosibel Jason M.D. 86293 250.00 274.9 V45.89 Office Visit 10/10/2005 1:20p [facility] Rosibel Jason 77598 V72.83 M.D. V77.1 Office Visit 01/01/2005 4:20p [facility] Rosibel Jason 86770 274.9 M.D. Office Visit 11/12/2004 4:00p Main Office Rosibel Jason 19584 274.9 M.D. Office Visit 10/08/2004 11:30a [facility] Josiane LockJan 14785 274.9 Office Visit 09/12/2004 4:20p Main Office Rosibel Jason, 71535 274.9 M.D. Office Visit 06/20/2004 9:00a Main Office Rosibel Jason, 03942 274.9 M.D. Office Visit 06/17/2004 4:20p Main Office Rosibel Jason, 60029 250.00 M.D. V45.89 Office Visit 02/01/2004 4:00p Main Office Garry Martinez M.D. 63028 250.00 278.00 Office Visit 10/24/2003 12:40p Main Office Garry Martinez M.D. 74780 250.00 278.00 716.90 Office Visit 09/26/2003 2:45p Main Office Josiane LockBean-Chris 23504 274.9 Office Visit 07/06/2003 4:00p Main Office Garry Martinez M.D. 59779 250.00 078.10 Office Visit 02/28/2003 2:10p Main Office Garry Martinez M.D. 23356 250.00 278.00 Office Visit 11/03/2002 9:00a [facility] Shannan Mcculloughgianfranco [facility] 10937 466.0 Office Visit 09/13/2002 11:40a Main Office Garry Martinez M.D. 85591 250.00 Office Visit 03/31/2002 4:00p Main Office Garry Martinez M.D. 46073 Office Visit 11/25/2001 4:00p Main Office Garry Martinez M.D. 88983 Office Visit 11/03/2001 2:10p Main Office Johnathon Topete M.D. 22421 Office Visit 07/29/2001 4:20p Main Office Garry Martinez M.D. 46384 Office Visit 04/29/2001 4:20p Main Office Garry Martinez M.D. 25895 Office Visit 12/18/2000 4:00p Main Office Garry Martinez M.D. 63527 Office Visit 09/08/2000 10:00a Main Office Garry Martinez M.D. 12098 Office Visit 06/17/2000 4:10p [facility] Office Garry Martinez M.D. 25614 Plan of Care Future Appointment(s):10/22/2018 9:40 am - Tram Jolly M.D. at [facility] Siixxb3808/04/2018 - Tram Jolly M.D.Z01.818 Encounter for other preprocedural examinationComments:If all bloodwork is normal, and she is cleared by cardiology, patient is cleared for surgery.With her knee replaced, she will be able to be more mobile, get more exercise and continue on her weight loss efforts. She has already lost about 30# in the last year and a half.I am leaving the country on [place] 25, but I don't forsee any difficulties with this clearance. Patient states that she passed her stress test and has one more follow up with cardiology. she will need to stop her multivitamin 10 days prior to surgery. please start a bowel regimen with very first pain pill to PREVENT constipation.M17.0 Bilateral primary osteoarthritis of kneeM25.462 Effusion, left kneeM25.562 Pain in left kneeAllComments:~B_~U_ Medication Management~b_~u_ Patient Understands medications she's taking? Yes No Are there Barriers to Adherence? Yes No Has the patient been asked about herbal supplements and therapies, and OTC meds? Yes No
[2018-08-31] MEDS ORDERED: Lactated Ringers 1000 ML Bag* 1,000 ML IV SCH (06:00)
[2018-08-31] MEDS ORDERED: Famotidine IV* 10 MG/ML 2 ML (20 mg) IV ONE (06:00)
[2018-08-31] MEDS ORDERED: Gabapentin CAP(*) 300 MG PO ONE (06:00)
[2018-08-31] MEDS ORDERED: Famotidine IV* 10 MG/ML 2 ML (20 mg) ONE (06:51)
[2018-08-31] MEDS ORDERED: Gabapentin CAP(*) 300 MG ONE (06:51)
[2018-08-31] MEDS ORDERED: ceFAZolin 2 GM PREMIX in ORs 2 GM/50 ML BAG IVPB ONE (06:51)
[2018-08-31] MEDS ORDERED: ceFAZolin 1 GM ADVAN(*) 1 GM ADDV.VIAL IVPB ONE (06:51)
[2018-08-31] MEDS ORDERED: Buffered Lidocaine 1% SYRIN* 1 ML/SYRINGE INTRADERM ONE (06:52)
[2018-08-31] MEDS ORDERED: Bupivacaine 0.5%* 50 ML VIAL ONE (07:05)
[2018-08-31] MEDS ORDERED: Midazolam* 1 MG/ML 5 ML VIAL (5 MG) ONE (07:19)
[2018-08-31] MEDS ORDERED: fentaNYL* 50 MCG/ML 2 ML VIAL (100 MCG VIAL) ONE ×3 (07:19→09:09)
[2018-08-31] MEDS ORDERED: Lidocaine 1%* 5 ML VIAL ONE (07:29)
[2018-08-31] MEDS ORDERED: ROPIVACAINE 5 MG/ML 30 ML BTL (0.5%) ONE (07:29)
[2018-08-31] MEDS ORDERED: KETAMINE HCL* 50 MG/ML 10 ML VIAL ONE (08:11)
[2018-08-31] MEDS ORDERED: Dexamethasone IV* 4 MG/ML 1 ML (4 MG) ONE (09:21)
[2018-08-31] MEDS ORDERED: Ketorolac INJ* 30 MG/ML 1 ML VIAL ONE (09:21)
[2018-08-31] MEDS ORDERED: Lidocaine 2% PF * 5 ML VIAL ONE (09:21)
[2018-08-31] MEDS ORDERED: Succinylcholine* 20 MG/ML 10 ML VIAL ONE (09:21)
[2018-08-31] MEDS ORDERED: EPHEDrine (Pressors)* 50 MG/ML VIAL ONE (09:21)
[2018-08-31] MEDS ORDERED: Propofol* 10 MG/ML 20 ML BTL ONE ×2 (09:21→11:13)
[2018-08-31] MEDS ORDERED: DiMENhydriNATE IV* 50 MG/ML VIAL ONE ×2 (09:21→12:31)
[2018-08-31] MEDS ORDERED: Ondansetron INJ* 2 MG/ML VIAL ONE ×2 (09:21→12:27)
[2018-08-31] MEDS ORDERED: Glycopyrrolate IV* 0.2 MG/ML 1 ML VIAL ONE (09:21)
[2018-08-31] MEDS ORDERED: DiMENhydriNATE IV* 50 MG/ML VIAL IV PUSH PRN (09:59)
[2018-08-31] MEDS ORDERED: HYDROmorphone INJ1* 1 MG/ML SYRINGE IV PRN (09:59)
[2018-08-31] MEDS ORDERED: HYDROcodone/ACETAMIN 5-325 MG* 1 TAB PO PRN (09:59)
[2018-08-31] MEDS ORDERED: Naloxone* 0.4 MG/ML 1 ML VIAL IV PRN (09:59)
[2018-08-31] MEDS ORDERED: Gabapentin CAP(*) 100 MG PO ONE (10:02)
[2018-08-31] MEDS ORDERED: HYDROmorphone INJ1* 1 MG/ML SYRINGE ONE (10:23)
[2018-08-31] MEDS ORDERED: Gabapentin CAP(*) 100 MG ONE (10:44)
[2018-08-31] MEDS ORDERED: diPHENhydraMINE IV* 50 MG/ML 1 ml VIAL (BENADRYL) IV PRN (11:32)
[2018-08-31] MEDS ORDERED: Cyclobenzaprine TAB* 10 MG PO PRN (11:32)
[2018-08-31] MEDS ORDERED: Bisacodyl SUPP* 10 MG SUPP PR PRN (11:32)
[2018-08-31] MEDS ORDERED: Magnesium Hydroxide LIQ* 30 ML UDC PO PRN (11:32)
[2018-08-31] MEDS ORDERED: Ondansetron INJ* 2 MG/ML VIAL IV PRN (11:32)
[2018-08-31] MEDS ORDERED: clonazePAM TAB(*) 0.5 MG PO PRN (11:37)
[2018-08-31] MEDS ORDERED: traMADol TAB* 50 MG PO SCH ×2 (12:00→15:30)
[2018-08-31] MEDS: Lactated Ringers 1000 ML Bag* 1,000 ML IV SCH (13:00)
--- NOTE | 2018-08-31 14:00 | PN ---
Progress Note - Progress Note Date of Service: 08/31/18 Note: patient resting comfortably with no complaints of pain. able to dorsi flex/ plantar flex, intact sensation and 2+ DP pulse.
[2018-08-31] MEDS: traMADol TAB* 50 MG PO SCH ×2 (15:33→21:35)
[2018-08-31] MEDS: Morphine VIAL* 4 MG/ML VIAL (1 ml vial) IV PRN ×2 (16:47→22:28)
[2018-08-31] MEDS ORDERED: Warfarin TAB(*) 10 MG PO ONE (17:00)
[2018-08-31] MEDS: FLUoxetine CAP* 10 MG PO SCH (17:44)
[2018-08-31] MEDS: ceFAZolin 1 GM ADVAN(*) 1 GM in NS 0.9% 50 ML* 50 ML IVPB SCH (17:44)
[2018-08-31] MEDS: Docusate CAP* 100 MG PO SCH (21:34)
[2018-08-31] MEDS: Gabapentin CAP(*) 300 MG PO SCH (21:34)
[2018-08-31] MEDS: Magnesium Hydroxide LIQ* 30 ML UDC PO SCH (21:36)
[2018-09-01] MEDS: Lactated Ringers 1000 ML Bag* 1,000 ML IV SCH ×2 (00:32→15:28)
[2018-09-01] MEDS: ceFAZolin 1 GM ADVAN(*) 1 GM in NS 0.9% 50 ML* 50 ML IVPB SCH ×2 (00:35→08:28)
[2018-09-01] MEDS: traMADol TAB* 50 MG PO SCH ×4 (03:30→22:02)
[2018-09-01] MEDS: Morphine VIAL* 4 MG/ML VIAL (1 ml vial) IV PRN ×4 (03:50→20:53)
--- NOTE | 2018-09-01 04:09 | OP ---
DATE OF OPERATION: 08/31/18 - ROOM #346 DATE OF : 57 ATTENDING SURGEON: Netta Gilbert MD POTATO BUCKER: KARIS Valente. Mr. Marshall did help throughout the procedure with preparation of the leg, wound retraction, manipulation of the knee, and wound closure. ANESTHESIOLOGIST: Dr. Rao ANESTHESIA: General. PRE-OP DIAGNOSIS: Severe end-stage degenerative osteoarthritis of the left knee joint. POST-OP DIAGNOSIS: Severe end-stage degenerative osteoarthritis of the left knee joint. OPERATIVE PROCEDURE: Left total knee arthroplasty plus modifier for morbid obesity and extended operative time. TOURNIQUET TIME: 63 minutes. COMPLICATIONS: None. SPECIMEN: Bone and cartilage from left knee joint sent to Pathology. ESTIMATED BLOOD LOSS: 250 cc. HARDWARE USED: This is cemented total knee arthroplasty hardware from [employer]. Two packages of Simplex bone cement. For the femur, a size 6 narrow left posterior stabilized Legion Oxinium femoral component. For the tibia, size 5 left tibial baseplate Susan II. For the insert, an 11-mm posterior stabilized articular insert, size 5/6. For the patella, a 32-mm 3- peg all poly patella. BRIEF HISTORY/INDICATIONS: Ms. Nogueira is a 63-year-old morbidly obese female with years of increasingly severe left knee pain. She failed conservative treatment with antiinflammatories, pain medications, intraarticular injections, and physical therapy. Her radiographs showed not only [id number] arthritis, but deformity of the bone along the medial tibial plateau because of chronic wear. Due to continued pain and decreased quality of life, she elected to undergo left total knee arthroplasty. Informed consent was obtained from the patient. She understood the risks of surgery included, but were not limited to bleeding, infection, damage to nearby structures, continued pain, need for further surgery, intraoperative fracture, nerve palsy, hardware failure or loosening, knee stiffness, loss of motion, stroke, heart attack, blood clot, and . She wished to proceed. INTRAOPERATIVE FINDINGS: Intraoperatively, the patient had morbidly obese body habitus, which made all steps to procedure more difficult. The exposure and closing time were extended at least 45 minutes. The patient's extreme deformity of the bone also added significant operative time. She had a complete loss of cartilage in all 3 compartments and significant bone loss and wear along the medial tibial plateau. She had extensive osteophyte formation. Overall, the patient's morbidly obese body habitus added over 1 hour to the surgical time. The patient's preop range of motion was 5 to 80 degrees of flexion, postop range of motion and full extension to 110 degrees of flexion because of body habitus. DESCRIPTION OF PROCEDURE: Ms. Nogueira was a 63-year-old female identified in the preanesthesia unit. Her left lower extremity was marked as the correct operative side. Informed consent was signed and placed in the chart. The patient was taken to the operating room and placed under general anesthesia. A Merida catheter was placed. Tourniquet was placed on the left thigh. Left lower extremity was prepped and draped in the usual sterile fashion. Preop time -out was made to correctly identify the patient, side, and site. Appropriate perioperative antibiotics were given within 1 hour of incision. A midline incision was made with a #10 blade. A #10 blade was used to make a standard medial parapatellar arthrotomy. The patella was subluxed laterally. Electrocautery was used to subperiosteally elevate soft tissue off the superomedial tibia to the midsagittal plane. The patient's knee could be flexed up to proximally 80 degrees. A drill was used to enter the distal femur. Intramedullary distal femoral cutting guide was pinned on the distal femur. Oscillating saw was used to make the distal femoral cut. Next, the external rotation guide was pinned on the distal femur and the distal femur was sized to a size 6. Size 6 multi-cutting jig was pinned on the distal femur. Oscillating saw was used to make the appropriate 4 chamfer cuts. PCL was carefully released. Tibia was subluxed anteriorly. The extramedullary tibial cutting guide was pinned on the proximal tibia. There was extensive medial tibial plateau wear. Oscillating saw was used to make the proximal tibial cut perpendicular to the mechanical axis of the tibia. The bone was carefully removed. The osteophytes were removed from around the medial tibial plateau. The knee was brought out into full extension. A spacer block had good fit with the knee in full extension. Medial and lateral ligaments were well balanced. The knee was flexed up. A lamina crm solution architect was placed both medially and laterally. Any remaining meniscus was carefully removed using electrocautery. Curved osteotome was used to remove extensive posterior osteophytes. The tibial tray and drop araceli were placed and once again confirmed a satisfactory tibial cut. A size 6 narrow left femoral trial was impacted onto the distal femur and had excellent fit. The box for the posterior stabilized implant was prepared using a reamer and box cut osteotome. The size 5 tibial tray trial and a 11-mm insert trial were placed and the knee was taken through a range of motion. The knee had full extension to 110 degrees of flexion. The patient's body habitus limited range of motion. There was satisfactory patellofemoral tracking. Patella was everted. A 9-mm of patellar bone and cartilage was carefully removed using an oscillating saw. The patella was sized to a size 32. Three peg holes were drilled through the size 32 guide. A 32 trial patella was placed and the knee was taken through a range of motion. There was satisfactory patellofemoral tracking. All trials were removed. The tibia was subluxed anteriorly and sized to a size 5. A size 5 keel punch was used to prepare the proximal tibia. All bony cut surfaces were copiously irrigated with sterile saline and dried. Final implants were cemented into place starting with the tibia, followed by the femur , and last the patella. A 11-mm insert trial was placed and the knee was taken out to full extension. Tourniquet was turned down at 63 minutes. The knee was copiously irrigated with sterile saline. Electrocautery was used to obtain meticulous hemostasis. Once the cement was fully cured, the insert trial was removed. Any excess cement was removed from around the capsule and hardware. Final insert chosen was an 11-mm posterior stabilized articular insert , size 5/6. This was locked into position on the tibial tray. Stability of the insert was checked and rechecked and noted to be stable. The patient's extensor mechanism was closed using interrupted #1 Vicryls. The rest of the incision was closed meticulously in a layered fashion using 0 and 2-0 Vicryls. Skin was closed using running 3-0 nylon suture. Sterile Xeroform, 4x4's, and Webril were used to cover the incision. The patient's incision was covered with Doug wrap and cold pack. The patient's anesthesia was reversed without difficulty. She was taken to the PACU in stable condition. Intended weightbearing will be weightbearing as tolerated. Intended DVT prophylaxis will be Eliquis. [id number]/[facility] #: [id number] [facility]
[2018-09-01 06:35] LABS: Hematocrit 34 % (35-47); Hemoglobin 11.5 g/dl (12.0-16.0); Mean Platelet Volume 7.5 fL (7.4-10.4); Platelet Count 187 10^3/ul (150-450)
[2018-09-01 06:42] LABS: INR 1.05 (0.77-1.02)
[2018-09-01 06:48] LABS: BUN/Creatinine Ratio 16.9 (8-20); Calcium 8.5 mg/dL (8.6-10.3); EGFR African American 111.8 (>60); EGFR Non-African American 92.4 (>60); Potassium 4.3 mmol/L (3.5-5.0)
[2018-09-01] MEDS ORDERED: Enoxaparin(*) 40 MG/0.4 ML SYR SUBCUT SCH (09:00)
[2018-09-01] MEDS: Magnesium Hydroxide LIQ* 30 ML UDC PO SCH ×2 (09:35→20:54)
[2018-09-01] MEDS: Docusate CAP* 100 MG PO SCH ×2 (09:35→20:53)
[2018-09-01] MEDS: Vitamin THERAPEUTIC TAB PO SCH (09:35)
[2018-09-01] MEDS: Gabapentin CAP(*) 300 MG PO SCH ×2 (09:35→20:53)
[2018-09-01] MEDS: [UNRECOGNIZED DRUG - OTHER] PO SCH (09:36)
--- NOTE | 2018-09-01 10:04 | PN ---
Progress Note - Progress Note Date of Service: 09/01/18 SOAP: Subjective: []Patient was seen and examined at bedside. She feels well without CP, SOB, dizziness or nausea. Left knee pain is well controlled. Objective: []General: NAD, well appearing LLE: Left knee dressing CDI, cryo cuff in use, thigh is soft, DF/PF intact, sensation intact to light touch distally, DP2+ Calves supple and nontender without erythema, edema or palpable cords Assessment: []POD 1 sp left total knee arthroplasty 08/31/18, Dr Gilbert Plan: []WBAT PT/OT Changed DVT prophylaxis from lovenox and coumadin to eliquis 2.5 mg PO BID. No need for INR checks Will need rehab placement, CM aware Vital Signs Temp 98.4 F 09/01/18 07:39 Pulse 78 09/01/18 07:39 Resp 18 09/01/18 09:39 BP 108/69 09/01/18 07:39 Pulse Ox 95 09/01/18 07:39 Intake & Output 08/31/18 09/01/18 09/01/18 18:59 06:59 18:59 Intake Total 1750 1766 796 Output Total 125 2475 Balance 1625 -709 796 Intake: IV Fluids 1750 1036 686 ABX - CEFAZOLIN 54 CEFAZOLIN 3 G 100 LR 1600 982 686 TRANSEXAMIC ACID 1G 50 IVPB 110 ABX - CEFAZOLIN 110 Oral 730 Output: Merida 125 2475 Other: # Bowel Movements 0 Laboratory Last Values Hgb 11.5 g/dl (12.0-16.0) L 09/01/18 06:03 Hct 34 % (35-47) L 09/01/18 06:03 Plt Count 187 10^3/ul (150-450) 09/01/18 06:03 MPV 7.5 fL (7.4-10.4) 09/01/18 06:03 INR (Anticoag Therapy) 1.05 (0.77-1.02) H 09/01/18 06:03 Sodium 137 mmol/L (135-145) 09/01/18 06:03 Potassium 4.3 mmol/L (3.5-5.0) 09/01/18 06:03 Chloride 103 mmol/L (101-111) 09/01/18 06:03 Carbon Dioxide 28 mmol/L (22-32) 09/01/18 06:03 Anion Gap 6 mmol/L (2-11) 09/01/18 06:03 BUN 11 mg/dL (6-24) 09/01/18 06:03 Creatinine 0.65 mg/dL (0.51-0.95) 09/01/18 06:03 Est GFR ( Amer) 111.8 (>60) 09/01/18 06:03 Est GFR (Non-Af Amer) 92.4 (>60) 09/01/18 06:03 BUN/Creatinine Ratio 16.9 (8-20) 09/01/18 06:03 Glucose 134 mg/dL (70-100) H 09/01/18 06:03 Calcium 8.5 mg/dL (8.6-10.3) L 09/01/18 06:03
[2018-09-01] MEDS: Morphine TAB Extended Release (*) 15 MG TAB.ER PO SCH (12:00)
[2018-09-01] MEDS: FLUoxetine CAP* 10 MG PO SCH (17:57)
[2018-09-01] MEDS: Apixaban* 2.5 MG TAB PO SCH (20:54)
[2018-09-02] MEDS: Morphine TAB Extended Release (*) 15 MG TAB.ER PO SCH (00:23)
[2018-09-02] MEDS: traMADol TAB* 50 MG PO SCH ×2 (03:59→09:12)
[2018-09-02 06:14] LABS: Hematocrit 33 % (35-47); Hemoglobin 11.3 g/dl (12.0-16.0); Mean Platelet Volume 7.8 fL (7.4-10.4); Platelet Count 186 10^3/ul (150-450)
[2018-09-02 07:47] VITALS: BP 126/63
[2018-09-02] MEDS: Docusate CAP* 100 MG PO SCH (09:12)
[2018-09-02] MEDS: Gabapentin CAP(*) 300 MG PO SCH (09:12)
[2018-09-02] MEDS: Apixaban* 2.5 MG TAB PO SCH (09:12)
[2018-09-02] MEDS: Vitamin THERAPEUTIC TAB PO SCH (09:12)
[2018-09-02] MEDS: Magnesium Hydroxide LIQ* 30 ML UDC PO SCH (09:13)
[2018-09-02] MEDS: [UNRECOGNIZED DRUG - OTHER] PO SCH (09:13)
--- NOTE | 2018-09-02 12:32 | PN ---
Progress Note - Progress Note Date of Service: 09/02/18 SOAP: Subjective: []Patient seen and examined at bedside. She feels well and desires DC to [facility] today. Denies CP, SOB, dizziness, nausea. LLE pain is well controlled. Objective: []General: NAD, well appearing LLE: Left knee dressing changed by Dr Gilbert this morning without complication, incision CDI, cryo cuff in use, thigh is soft, DF/PF intact, sensation intact to light touch distally, DP2+ Calves supple and nontender without erythema, edema or palpable cords Assessment: []POD 2 sp left total knee arthroplasty 08/31/18, Dr Gilbert Plan: []WBAT PT/OT DVt prophylaxis: eliquis 2.5 mg PO BID. No need for INR checks PMRU today Vital Signs Temp 98.0 F 09/02/18 07:41 Pulse 99 09/02/18 07:41 Resp 18 09/02/18 09:12 BP 126/63 09/02/18 07:41 Pulse Ox 97 09/02/18 08:00 Intake & Output 09/01/18 09/02/18 09/02/18 18:59 06:59 18:59 Intake Total 1857 530 Output Total 1000 700 Balance 857 -170 Intake: IV Fluids 1007 LR 1007 IVPB 110 ABX - CEFAZOLIN 110 Oral 740 530 Output: Urine 1000 700 Other: # Bowel Movements 0 Laboratory Last Values Hgb 11.3 g/dl (12.0-16.0) L 09/02/18 05:52 Hct 33 % (35-47) L 09/02/18 05:52 Plt Count 186 10^3/ul (150-450) 09/02/18 05:52 MPV 7.8 fL (7.4-10.4) 09/02/18 05:52 INR (Anticoag Therapy) 1.05 (0.77-1.02) H 09/01/18 06:03 Sodium 137 mmol/L (135-145) 09/01/18 06:03 Potassium 4.3 mmol/L (3.5-5.0) 09/01/18 06:03 Chloride 103 mmol/L (101-111) 09/01/18 06:03 Carbon Dioxide 28 mmol/L (22-32) 09/01/18 06:03 Anion Gap 6 mmol/L (2-11) 09/01/18 06:03 BUN 11 mg/dL (6-24) 09/01/18 06:03 Creatinine 0.65 mg/dL (0.51-0.95) 09/01/18 06:03 Est GFR ( Amer) 111.8 (>60) 09/01/18 06:03 Est GFR (Non-Af Amer) 92.4 (>60) 09/01/18 06:03 BUN/Creatinine Ratio 16.9 (8-20) 09/01/18 06:03 Glucose 134 mg/dL (70-100) H 09/01/18 06:03 Calcium 8.5 mg/dL (8.6-10.3) L 09/01/18 06:03
--- NOTE | 2018-09-03 02:16 | DS ---
DISCHARGE SUMMARY: DATE OF ADMISSION: 08/31/18 DATE OF DISCHARGE: 09/02/18 PROVIDER: Netta Gilbert MD * (DICTATED BY KARIS HORTON) PREOP DIAGNOSIS: Severe end-stage degenerative osteoarthritis of the left knee joint. OPERATIVE PROCEDURE: Left total knee arthroplasty plus modifier for morbid obesity and extended operative time. COMPLICATIONS: None. HISTORY: Ms. Nogueira is a 63-year-old morbidly-obese female with years of increasingly severe left knee pain. She failed conservative management with anti- inflammatories, pain medication, intraarticular injections, and physical therapy. Radiographs showed [id number] arthritis as well as deformity of the bone along the medial tibial plateau because of chronic wear. Due to decreased quality of life, she elected to undergo a left total knee arthroplasty. HOSPITAL COURSE: The patient was admitted to [facility] on . She underwent a left total knee arthroplasty without complication. On postop day 1, she was well appearing in no acute distress. Left knee dressing was clean, dry and intact. Dorsiflexion, plantar flexion intact. DP pulse 2+. Sensation intact to light touch distally. On postop day 2, she was well appearing, in no acute distress. Left knee dressing was changed by Dr. Gilbert this morning without complication. Incision clean, dry and intact. Cryo-Cuff in use. Neurovascularly intact distally. Vital signs; temperature 98.0, pulse 99, respiratory rate 18, blood pressure 126/63, pulse ox is 97. Lab Values: Hemoglobin 11.3, hematocrit 33, INR 1.05. Sodium 137 and potassium 4.3. The patient deemed to be medically and orthopedically stable for discharge to [facility] today. DISCHARGE MEDICATIONS: 1. Clonazepam 0.5 mg p.o. b.i.d. p.r.n. 2. Floxin 10 mg p.o. q.p.m. 3. Ranitidine 300 mg p.o. q.p.m. 4. Vitamin D one tab p.o. q.a.m. 5. Vitamin B12 one tab p.o. q.a.m. 6. Pro-Optic one tab p.o. q.a.m. 7. Multivitamin one tab p.o. q.a.m. 8. Calcium one tab p.o. q.a.m. 9. Eliquis 2.5 mg p.o. b.i.d. for 30 days. 10. Docusate 100 mg p.o. b.i.d. 11. Tramadol 50 mg p.o. q. 6 hours p.r.n., max daily dose of 8. DISCHARGE PLAN: The patient will be weightbearing as tolerated. She will follow up with Dr. Gilbert in 10 to 14 days. DVT prophylaxis with Eliquis 2.5 mg p.o. every 12 hours for 30 days. Pain control, tramadol 50 mg 1 to 2 tablets every 6 hours as needed for pain, max of 8 tabs per day. She was discharged to [facility]. KARIS BUSTAMANTE [id number]/CPS #: [id number] [facility]
== END 2018-09-02 09:25 | DRG 302 ==
LOC: AA 05:42 → SSU 12:58
PROVIDERS: ADMIT Orthopaedic Surgery Adult Reconstructive Orthopaedic Surgery; ATTEND Orthopaedic Surgery Adult Reconstructive Orthopaedic Surgery
PROC: 0SRD069 Replacement of Left Knee Joint with Oxidized Zirconium on Polyethylene Synthetic Substitute, Cemented, Open Approach (ICD-10-PCS; principal; 2018-08-31 07:30)
DX: M17.0 Bilateral primary osteoarthritis of knee (principal); Z68.43 Body mass index [BMI] 50.0-59.9, adult; E66.01 Morbid (severe) obesity due to excess calories; F41.9 Anxiety disorder, unspecified; H35.30 Unspecified macular degeneration; M21.162 Varus deformity, not elsewhere classified, left knee; F43.21 Adjustment disorder with depressed mood; K21.9 Gastro-esophageal reflux disease without esophagitis; M25.462 Effusion, left knee; I45.10 Unspecified right bundle-branch block; M25.762 Osteophyte, left knee; G47.33 Obstructive sleep apnea (adult) (pediatric); Z98.84 Bariatric surgery status; Z82.49 Family history of ischemic heart disease and other diseases of the circulatory system; Z83.3 Family history of diabetes mellitus; Z82.3 Family history of stroke; Z80.3 Family history of malignant neoplasm of breast; Z90.49 Acquired absence of other specified parts of digestive tract
CPT/HCPCS: 36415; 80048; 85014; 85018; 85049; 85610; 88305; 88311; A9270-GY; C1776; J0330; J0690; J1100; J1170; J1240; J1650; J1885; J2250; J2270; J2405; J2704; J2795; J3010

== ENCOUNTER 2018-09-02 07:31 | Inpatient (IN) | payer BC ==
[2018-09-02] MEDS ORDERED: Magnesium Hydroxide LIQ* 30 ML UDC PO PRN (09:48)
[2018-09-02] MEDS ORDERED: clonazePAM TAB(*) 1 MG PO PRN ×2 (09:56→11:56)
[2018-09-02] MEDS ORDERED: Morphine TAB Extended Release (*) 15 MG TAB.ER PO SCH (11:00)
[2018-09-02] MEDS ORDERED: Acetaminophen TAB* 325 MG PO PRN (11:34)
[2018-09-02] MEDS ORDERED: HYDROcodone/ACETAMIN 5-325 MG* 1 TAB PO PRN (11:35)
--- NOTE | 2018-09-02 13:25 | HP ---
ADMISSION HISTORY AND PHYSICAL: DATE OF ADMISSION: 09/02/18 REASON FOR ADMISSION: Left total knee replacement. HISTORY OF ILLNESS: Serena Nogueira is a 63-year-old female. She has a medical history significant for obesity. She had gastric bypass surgery done in 2003 and has lost some weight since that time. She was able to get off her diabetes medicines. However, she still has a body mass index over 50. The patient has had difficulty with pain in both knees. It was worse on the right than on the left. She saw Dr. Gilbert and had x-rays taken on both sides. Radiographically, the left knee appeared to be worse and it was decided that she should have total knee replacements, but to do the left knee first. The patient's right knee, it was felt it was hurting so badly because she was relying on it to do so much of the weight bearing. The patient was admitted to [facility] on 08/31/18 and underwent a left total knee replacement that day. Postoperatively, she was started on Eliquis for DVT prophylaxis. She was put on MS Contin for pain control. The patient has physical therapy and occupational therapy needs. She is now being admitted for inpatient rehab, so that she might return to independent living. PAST MEDICAL HISTORY: Significant for the aforementioned obesity. She had diabetes mellitus, but no longer takes any meds since her gastric bypass surgery in 2003. The patient has depression since the of her in 2013 followed by the of her mother and father within a year. CURRENT MEDICATIONS: Include: 1. Eliquis. 2. Klonopin for anxiety. 3. She is on Prozac. 4. Neurontin. 5. MS Contin. 6. Tramadol. ALLERGIES: She had mental status changes after she took PERCOCET, but has no known drug allergies. SOCIAL HISTORY: She is a nonsmoker, nondrinker. She lives by herself in a 1- izabella house with a few steps to enter. She is retired. PHYSICAL EXAMINATION VITAL SIGNS: The patient's temperature is 99.4, blood pressure is 127/76, pulse 95, respirations 20. HEENT: Her extraocular movements are intact. Tongue is midline. NECK: Supple. LUNGS: Sounded clear to auscultation bilaterally. HEART: Sounds are regular. S1 and S2 are audible. ABDOMEN: Soft and nontender. EXTREMITIES: Her left knee has a wound, which is clean and dry. Peripheral pulses are intact. Minimal swelling at both feet. NEUROLOGIC: The patient was awake, alert, oriented. Muscle strength appeared to be close to 4/5 except at the left leg, which was 3 to 4/5 secondary to pain. FUNCTIONAL: She transfers with contact guard to min assist. ASSESSMENT: Left total knee replacement in a patient with a body mass index over 50. PLAN: Integrate her into a comprehensive and therapeutic rehab program. We will have the following goals: 1. Physical Therapy will work with the patient. They are going to work on functional transfer training, ambulation training with a walker. 2. Occupational Therapy will see the patient, work on her activities of daily living including toileting and toilet transfers. 3. Eliquis for DVT prophylaxis. 4. Adequate analgesia. 5. Her bowels will be regulated. 6. Iron Worker Foreman will be closely involved to make sure that any services and equipment that patient requires are in place prior to discharge. 7. Family training as appropriate. 8. Advance directives: The patient is a full code. 9. Continue Prozac for depression. 10. Home with appropriate services. ESTIMATED LENGTH OF STAY: 7 to 10 days. [id number]/CPS #: [id number] [place]
[2018-09-02] MEDS: traMADol TAB* 50 MG PO PRN (17:30)
[2018-09-02] MEDS: FLUoxetine CAP* 10 MG PO SCH (17:30)
[2018-09-02] MEDS: Morphine TAB Extended Release (*) 15 MG TAB.ER PO SCH (21:01)
[2018-09-02] MEDS: Apixaban* 2.5 MG TAB PO SCH (21:03)
[2018-09-02] MEDS: Docusate CAP* 100 MG PO SCH (21:03)
[2018-09-02] MEDS: Gabapentin CAP(*) 300 MG PO SCH (21:03)
[2018-09-02] MEDS: Senna TAB PO SCH (21:07)
[2018-09-03 06:55] LABS: ABS Basophils 0 10^3/ul (0-0.2); ABS Eosinophils 0.2 10^3/ul (0-0.6); ABS Lymphocytes 2.3 10^3/ul (1.0-4.8); ABS Neutrophils 4.5 10^3/ul (1.5-7.7); ABS Nucleated RBC 0 10^3/ul; Eosinophil % 2.2 %; Hematocrit 30 % (35-47); Hemoglobin 10.1 g/dl (12.0-16.0); Lymphocyte % 28.5 %; Mean Corpuscular HGB Conc 33 g/dl (31-36); Mean Corpuscular Hemoglobin 29 pg (27-31); Mean Corpuscular Volume 87 fL (80-97); Mean Platelet Volume 7.8 fL (7.4-10.4); Nucleated Red Blood Cells % 0; Platelet Count 163 10^3/ul (150-450); Red Blood Count 3.49 10^6/ul (4.00-5.40); Red Cell Distribution Width 14 % (10.5-15); White Blood Count 7.9 10^3/ul (3.5-10.8)
[2018-09-03 07:10] LABS: Albumin 2.8 g/dL (3.2-5.2); Albumin/Globulin Ratio 0.9 (1-3); BUN/Creatinine Ratio 15.4 (8-20); Calcium 8.4 mg/dL (8.6-10.3); EGFR Non-African American 119.5 (>60); Globulin 3.1 g/dL (2-4); Potassium 3.8 mmol/L (3.5-5.0); Total Bilirubin 0.6 mg/dL (0.2-1.0); Total Protein 5.9 g/dL (6.4-8.9)
[2018-09-03] MEDS: [UNRECOGNIZED DRUG - OTHER] PO SCH (07:10)
[2018-09-03] MEDS: Apixaban* 2.5 MG TAB PO SCH ×2 (07:11→21:14)
[2018-09-03] MEDS: Gabapentin CAP(*) 300 MG PO SCH ×2 (07:11→21:14)
[2018-09-03] MEDS: traMADol TAB* 50 MG PO PRN ×3 (07:12→21:14)
[2018-09-03] MEDS: Docusate CAP* 100 MG PO SCH ×2 (07:14→21:13)
[2018-09-03] MEDS: Morphine TAB Extended Release (*) 15 MG TAB.ER PO SCH (08:41)
--- NOTE | 2018-09-03 12:38 | PMRUTEAM ---
PMRU: Team Meeting Current Status: Nursing: Current Status Skin Deviations [Left Knee] Incision Skin Deviation Description [ drsg/cryounit in place Left Knee] Physical Therapy: Current Status Bed Mobility Assistance Min Assist Transfer Mobility Assistance Supervision Transfer/Bed Mobility Rolling Walker Recommended Devices Ambulation Assistance Supervision Ambulation Assistive Devices Rolling Walker Number of Feet Patient 110 Ambulated Stairs Assistance Contact Guard Assist Stairs Recommended Devices Two Rails Number of Stairs 6 Occupational Therapy: Current Status Upper Body Dressing Supervision Lower Body Dressing Supervision Bathing Supervision Toileting Supervision Toilet Transfer Supervision Shower Transfer Supervision Eating Independent Rec Therapy: Current Status Summary of Assessment and Pt. was open to conversation - very engaged Clinical Impression throughout and cooperative. Pt. was tearful when discussing her losses. Pt. identified with coping strategies and states crying helps sometimes. Pt . was very interested in pet therapy which she participated in and is also interested in continued leisure visits. Treatment Goals Pt. will engage in leisure activities while on the unit. Treatment Plan Provide emotional support as needed. Provide RT services and encourage involvement. Social Work: Current Status Discharge Plan return home with home care svs and support from friends Potential for Family Training n/a pt lives alone w/o family Anticipated Discharge Home Destination Discharge With home care svs and support from friends Goals: Physical Therapy: Initial Goals Bed Mobility Assistance Independent Transfer Mobility Assistance Independent Transfer/Bed Mobility Rolling Walker Recommended Devices Ambulation Independent Ambulation Recommended Devices Rolling Walker Ambulation Distance 150 Stairs Assistance Independent Stair Recommended Devices One Rail Number of Stairs 6 Home Exercise Program Independent Assistance Physical Therapy: Updated Goals Transfer/Bed Mobility Rolling Walker Recommended Devices Occupational Therapy: Initial Goals Goals to be Completed in (Days 5 ) Upper Body Bathing Routine Independent Lower Body Bathing Routine Modified Independent with Upper Body Dressing Routine Independent Lower Body Dressing Routine Modified Independent with Toilet Hygeine and Clothing Modified Independent with Management Routine Toilet Transfer Routine Modified Independent with Step-In Shower Transfer Supervision/Set Up Routine Functional Transfers for ADL Modified Independent with Grooming Routine Independent Feeding Routine Independent Social Work: Goals Discharge Plan return home with home care svs and support from friends Potential for Family Training n/a pt lives alone w/o family Anticipated Discharge Home Destination Discharge With home care svs and support from friends Care Plan: Care Plan ADL's - Improve/Maintain Start: 09/02/18 15:42 Freq: DAILY Status: Active Target: Protocol: Activity Type Activity Date Activity User E-Sign Co-Sign Detail Recorded Client Recorded Date Recorded By Document 09/03/18 11:49 [id number] 09/03/18 11:49 [id number] 09/03/18 11:49 PMRU Outcome: ADL's/ADL Transfers Orders/Interventions Occupational Therapy Evaluation & Treatment Communication Tool in Patient Room Patient to receive OT 5x/wk for 60-120 Therex min/day Self Care Management Group Therapy UE/LE ADL's with Assist Yes: mod I ADL Transfers with Assist Yes: mod I Toileting: Transfers,Clothing Management Yes: mod I ,Hygeine w/Assist Light Kitchen/Laundry w/Assist Yes: mod I Progression Toward Outcome/Goals Progressing Outcome/Goals Met Pt nearing achievement of OT goals. Will practice IADL task prior to d /c next week. Coping/Psych-Improve/Maintain Start: 09/02/18 10:50 Freq: QSHIFT Status: Active Target: Protocol: Activity Type Activity Date Activity User E-Sign Co-Sign Detail Recorded Client Recorded Date Recorded By Document 09/03/18 07:31 [id number] 09/03/18 07:36 [id number] 09/03/18 07:31 PMRU Outcome: Coping/Psychosocial Coping Outcome/Goals Verbalization of Acceptance of Rehab Admit Verbalization of Sense of Control Over Health Status Utilization of Appropriate Problem Solving Techniques Willingness to Participate in Treatment Plan and Basic Needs Utilization of Available Support Systems Psychosocial Outcome/Goals Maintain/ Improve Emotional Health Demonstrates Knowledge of Healthy Coping Mechanisms Available Cooperate/ Participate in Plan Progression Toward Outcome/Goals - Progressing Coping Progression Toward Outcome/Goals - Progressing Psychosocial DVT Prophylaxis- Improve/Maintain Start: 09/02/18 10:50 Freq: QSHIFT Status: Active Target: Protocol: Activity Type Activity Date Activity User E-Sign Co-Sign Detail Recorded Client Recorded Date Recorded By Document 09/03/18 07:31 [id number] 09/03/18 07:36 [id number] 09/03/18 07:31 PMRU Outcome: DVT Prophylaxis Outcome/Goals Remains Free of DVT Complies with DVT Prophylaxis /Treatment Demonstrates Knowledge of DVT Prevention/ Treatment Progression Toward Outcome/Goals Progressing Discharge Planning - Improve/Maintain Start: 09/02/18 10:50 Freq: DAILY Status: Active Target: Protocol: Activity Type Activity Date Activity User E-Sign Co-Sign Detail Recorded Client Recorded Date Recorded By Document 09/03/18 00:54 [id number] 09/03/18 00:54 [id number] 09/03/18 00:54 PMRU Outcome: Discharge Planning Update Patient Family No Outcome/Goals Demonstrates Understanding of Discharge Plan Progression Toward Outcome/Goals Progressing Education-Improve/Maintain Start: 09/02/18 10:50 Freq: QSHIFT Status: Active Target: Protocol: Activity Type Activity Date Activity User E-Sign Co-Sign Detail Recorded Client Recorded Date Recorded By Document 09/03/18 07:31 [id number] 09/03/18 07:36 [id number] 09/03/18 07:31 PMRU Outcome: Education Outcome/Goals Encourage Questions Progression Toward Outcome/Goals Progressing /GI-Improve/Maintain Start: 09/02/18 10:50 Freq: QSHIFT Status: Active Target: Protocol: Activity Type Activity Date Activity User E-Sign Co-Sign Detail Recorded Client Recorded Date Recorded By Document 09/03/18 07:31 [id number] 09/03/18 07:36 [id number] 09/03/18 07:31 PMRU Outcome: Genitourinary/ Gastrointestinal Genitourinary- Outcome/Goals Remain Free of Hospital- Acquired UTI Gastrointestinal-Outcome/Goals Maintain/ Achieve Bowel Regularity in Accordance with Pt's Baseline Prevent Constipation Bowel Regularity at Home Laxatives as Ordered Progression Toward Outcome/Goals - Progressing Progression Toward Outcome/Goals - GI Progressing Medication Administration Start: 09/02/18 10:50 Freq: QSHIFT Status: Active Target: Protocol: Activity Type Activity Date Activity User E-Sign Co-Sign Detail Recorded Client Recorded Date Recorded By Document 09/03/18 07:31 [id number] 09/03/18 07:36 [id number] 09/03/18 07:31 PMRU Outcome: Medication Administration Assess Patient Knowledge/Teach Med Yes Education for all Meds Outcome/Goals Patient Independent with Medication Administration at Home Demonstrates Understanding Progression Towards Outcome/Goals Progressing Is Patient Going Home on Lovenox? No Mobility- Improve/Maintain Start: 09/02/18 16:07 Freq: DAILY Status: Active Target: Protocol: Activity Type Activity Date Activity User E-Sign Co-Sign Detail Recorded Client Recorded Date Recorded By Document 09/02/18 16:07 [id number] 09/02/18 16:08 [id number] 09/02/18 16:07 PMRU Outcome: Mobility Physical Therapy Evaluation and Yes Treatment Activity OOB with Assistance Yes WBAT Yes: L LE Device Yes: FWW Assistance Yes: CGA Patient to be seen 5x/wk for 60-120 min/ Therex day for: Mobility Training Gait Training Balance Outcome/Goals Maintain/ Achieve Baseline Mobility Status Improve Mobility Status Demonstrates Proper Use of Assistive Devices Free from Complications of Immobility Progression Toward Outcome/Goals Progressing Bed Mobility Yes: Ind Transfers Yes: Mod I with FWW Gait x ft Yes: Mod I with FWW X150ft W/C Mobility x ft No Up/Down Stairs Yes: Ind x6 steps, 1 rail With HEP Yes Pain/Comfort- Improve/Maintain Start: 09/02/18 10:50 Freq: QSHIFT Status: Active Target: Protocol: Activity Type Activity Date Activity User E-Sign Co-Sign Detail Recorded Client Recorded Date Recorded By Document 09/03/18 07:31 [id number] [email or web address] 09/03/18 07:36 [id number] 09/03/18 07:31 PMRU Outcome: Pain/Comfort Outcome/Goals Demonstrates Knowledge and Use of Available Comfort Measures Achieves Acceptable Comfort/Pain Level as Determined by Patient/Condit Maintain Comfort Level Allowing Patient to Fully Participate in Rehab Progression Toward Outcome/Goals Progressing Respiratory - Improve/Maintain Start: 09/02/18 10:50 Freq: QSHIFT Status: Active Target: Protocol: Activity Type Activity Date Activity User E-Sign Co-Sign Detail Recorded Client Recorded Date Recorded By Document 09/03/18 07:31 [id number] 09/03/18 07:36 [id number] 09/03/18 07:31 PMRU Outcome: Respiratory Does Patient Have a Trach No Outcome/Goals Maintain/ Improve Activity Tolerance Prevent Pneumonia/ Atelectasis Progression Toward Outcome/Goals Progressing Safety- Improve/Maintain Start: 09/02/18 10:50 Freq: QSHIFT Status: Active Target: Protocol: Activity Type Activity Date Activity User E-Sign Co-Sign Detail Recorded Client Recorded Date Recorded By Document 09/03/18 07:31 [id number] 09/03/18 07:36 [id number] 09/03/18 07:31 PMRU Outcome: Safety Outcome/Goals Remain Free of Injury or Harm Cooperates with Safety Measures for Least Restrictive Environment Progression Toward Outcome/Goals Progressing Skin- Improve/Maintain Start: 09/02/18 10:50 Freq: QSHIFT Status: Active Target: Protocol: Activity Type Activity Date Activity User E-Sign Co-Sign Detail Recorded Client Recorded Date Recorded By Document 09/03/18 07:31 [id number] 09/03/18 07:36 [id number] 09/03/18 07:31 PMRU Outcome: Skin Skin Risk Level Low Skin Orders Dressing Change Outcome/Goals Free from Decubitus Surgical Incisions Healing Progression Toward Outcome/Goals Progressing Medicine Note: Length of Stay: 3 days Anticipated Discharge Destination: Home Tentative Discharge Date: 09/07/18 Discharged to: home
--- NOTE | 2018-09-03 16:40 | PN ---
Progress Note Date of Service: 09/03/18 Note: MAURO CHAUDHARY was visited. Therapy notes read and reviewed. She was discussed in interdisciplinary team rounds. She is moving very well. She had a BM yesterday. Wants to stop MS Contin and try morphine IR Current Medications: Active Medications Generic Name Dose Route Start Last Admin Trade Name Freq PRN Reason Stop Dose Admin Acetaminophen 650 mg 09/02/18 11:34 Tylenol Tab* PO Q6H PRN FEVER/PAIN Hydrocodone Bitart/Acetaminophen 1 tab 09/02/18 11:35 [place] 5-325 Tab* PO Q4H PRN PAIN - MODERATE TO SEVERE Apixaban 2.5 mg 09/02/18 21:00 09/03/18 07:11 Eliquis* PO 2.5 mg BID TREVOR Administration Clonazepam 0.5 mg 09/02/18 11:56 Klonopin Tab(*) PO BID PRN ANXIETY Docusate Sodium 100 mg 09/02/18 21:00 09/03/18 07:14 Colace Cap* PO Not Given BID TREVOR Fluoxetine HCl 10 mg 09/02/18 18:00 09/02/18 17:30 Prozac Cap* PO 10 mg 1800 TREVOR Administration Gabapentin 600 mg 09/02/18 21:00 09/03/18 07:11 Neurontin Cap(*) PO 600 mg BID TREVOR Administration Magnesium Hydroxide 30 ml 09/02/18 09:48 Milk Of Magnesia Liq* PO Q6H PRN CONSTIPATION Morphine Sulfate 15 mg 09/02/18 21:00 09/03/18 08:41 Ms Contin(*) PO 15 mg BID TREVOR Administration Pto: Pro-Optic 1 dose 09/03/18 09:00 09/03/18 07:10 Areds 2 Mvi/Min PO 1 dose Formula DAILY TREVOR Administration Senna 2 tab 09/02/18 21:00 09/02/18 21:07 Senokot Tab* PO 2 tab BEDTIME TREVOR Administration Tramadol HCl 50 mg 09/02/18 09:53 09/03/18 13:11 Ultram* PO 50 mg Q6H PRN Administration PAIN - MODERATE Vital Signs: Vital Signs Temp Pulse Resp BP Pulse Ox 97.4 F 79 14 127/66 98 09/03/18 05:24 09/03/18 05:24 09/03/18 15:54 09/03/18 05:24 09/03/18 05:24 Lab Results: Laboratory Results - last 24 hr 09/03/18 09/03/18 06:46 06:46 WBC 7.9 RBC 3.49 L Hgb 10.1 L Hct 30 L MCV 87 MCH 29 MCHC 33 RDW 14 Plt Count 163 MPV 7.8 Neut % (Auto) 56.5 Lymph % (Auto) 28.5 [place] % (Auto) 12.5 Eos % (Auto) 2.2 Baso % (Auto) 0.3 Absolute Neuts (auto) 4.5 Absolute Lymphs (auto) 2.3 Absolute Monos (auto) 1.0 H Absolute Eos (auto) 0.2 Absolute Basos (auto) 0 Absolute Nucleated RBC 0 Nucleated RBC % 0 Sodium 137 Potassium 3.8 Chloride 101 Carbon Dioxide 30 Anion Gap 6 BUN 8 Creatinine 0.52 Est GFR ( Amer) 144.6 Est GFR (Non-Af Amer) 119.5 BUN/Creatinine Ratio 15.4 Glucose 132 H Calcium 8.4 L Total Bilirubin 0.60 AST 134 H ALT 253 H Alkaline Phosphatase 345 H Total Protein 5.9 L Albumin 2.8 L Globulin 3.1 Albumin/Globulin Ratio 0.9 L Exam: HEENT: EOMI LUNGS: Clear bilaterally HEART: Reg rhythm ABDOMEN: Soft, +BS EXTREMITIES: Wound LLE clean. Trace edema left foot NEUROLOGIC: A & O times 3. Moves all 4 extremities, LLE slightly weak due to pain Assessment/Plan: 1. Left TKA: Wbat. PT/OT. Follow up with Dr. Gilbert after d/c 2. Neuropathy: Gabapentin 3. Analgesia: D/C [place] and MS Contin. Try Morphine elixir 4. DVT Prophylaxis: Eliquis for 30 days after surgery 5. Advanced Directives: Full code 09/03/18 16:39 09/03/18 16:43
[2018-09-03] MEDS: Morphine ORAL.SOLN 10 mg* 2 MG/ML UDC 5 ml PO PRN (17:39)
[2018-09-03] MEDS: FLUoxetine CAP* 10 MG PO SCH (17:39)
[2018-09-03] MEDS: Senna TAB PO SCH (21:13)
[2018-09-04] MEDS: [UNRECOGNIZED DRUG - OTHER] PO SCH (07:48)
[2018-09-04] MEDS: Apixaban* 2.5 MG TAB PO SCH ×2 (07:49→20:36)
[2018-09-04] MEDS: Docusate CAP* 100 MG PO SCH ×2 (07:49→20:36)
[2018-09-04] MEDS: Gabapentin CAP(*) 300 MG PO SCH ×2 (07:49→20:37)
[2018-09-04] MEDS: Morphine ORAL.SOLN 10 mg* 2 MG/ML UDC 5 ml PO PRN ×3 (07:51→21:55)
[2018-09-04] MEDS: traMADol TAB* 50 MG PO PRN ×2 (12:16→20:37)
--- NOTE | 2018-09-04 14:42 | PN ---
Progress Note Date of Service: 09/04/18 Note: MAURO CHAUDHARY was visited. Therapy notes read and reviewed. She has minimal complaints of pain. She thinks the Morphine is working for her. Have stopped the [place] and the MS contin. Current Medications: Active Medications Generic Name Dose Route Start Last Admin Trade Name Freq PRN Reason Stop Dose Admin Acetaminophen 650 mg 09/02/18 11:34 Tylenol Tab* PO Q6H PRN FEVER/PAIN Apixaban 2.5 mg 09/02/18 21:00 09/04/18 07:49 Eliquis* PO 2.5 mg BID TREVOR Administration Clonazepam 0.5 mg 09/02/18 11:56 Klonopin Tab(*) PO BID PRN ANXIETY Docusate Sodium 100 mg 09/02/18 21:00 09/04/18 07:49 Colace Cap* PO 100 mg BID TREVOR Administration Fluoxetine HCl 10 mg 09/02/18 18:00 09/03/18 17:39 Prozac Cap* PO 10 mg 1800 TREVOR Administration Gabapentin 600 mg 09/02/18 21:00 09/04/18 07:49 Neurontin Cap(*) PO 600 mg BID TREVOR Administration Magnesium Hydroxide 30 ml 09/02/18 09:48 Milk Of Magnesia Liq* PO Q6H PRN CONSTIPATION Morphine Sulfate 10 mg 09/03/18 16:41 09/04/18 13:51 Morphine Oral.Soln 10 Mg* PO 10 mg Q4H PRN Administration PAIN - MODERATE TO SEVERE Pto: Pro-Optic 1 dose 09/03/18 09:00 09/04/18 07:48 Areds 2 Mvi/Min PO 1 dose Formula DAILY TREVOR Administration Senna 2 tab 09/02/18 21:00 09/03/18 21:13 Senokot Tab* PO 2 tab BEDTIME TREVOR Administration Tramadol HCl 50 mg 09/02/18 09:53 09/04/18 12:16 Ultram* PO 50 mg Q6H PRN Administration PAIN - MODERATE Vital Signs: Vital Signs Temp Pulse Resp BP Pulse Ox 98.8 F 80 18 125/64 98 09/04/18 05:43 09/04/18 05:43 09/04/18 14:19 09/04/18 05:43 09/04/18 08:00 Exam: HEENT: EOMI LUNGS: Clear bilaterally HEART: Reg rhythm ABDOMEN: Soft, +BS EXTREMITIES: Wound LLE clean. Trace edema left foot NEUROLOGIC: A & O times 3. Moves all 4 extremities, LLE slightly weak due to pain Assessment/Plan: 1. Left TKA: Wbat. PT/OT. Follow up with Dr. Gilbert after d/c 2. Neuropathy: Gabapentin 3. Analgesia: Morphine elixir 4. DVT Prophylaxis: Eliquis for 30 days after surgery 5. Advanced Directives: Full code 09/04/18 14:43
[2018-09-04] MEDS: FLUoxetine CAP* 10 MG PO SCH (17:26)
[2018-09-04] MEDS: Senna TAB PO SCH (20:36)
[2018-09-05] MEDS: Gabapentin CAP(*) 300 MG PO SCH ×2 (08:19→20:52)
[2018-09-05] MEDS: Apixaban* 2.5 MG TAB PO SCH ×2 (08:19→20:52)
[2018-09-05] MEDS: Docusate CAP* 100 MG PO SCH ×2 (08:19→20:52)
[2018-09-05] MEDS: [UNRECOGNIZED DRUG - OTHER] PO SCH (08:19)
[2018-09-05] MEDS: Morphine ORAL.SOLN 10 mg* 2 MG/ML UDC 5 ml PO PRN ×2 (14:02→18:03)
--- NOTE | 2018-09-05 15:08 | PN ---
Progress Note Date of Service: 09/05/18 Note: MAURO CHAUDHARY was visited. Nursing notes read and reviewed. No complaints otherwise. Current Medications: Active Medications Generic Name Dose Route Start Last Admin Trade Name Freq PRN Reason Stop Dose Admin Acetaminophen 650 mg 09/02/18 11:34 Tylenol Tab* PO Q6H PRN FEVER/PAIN Apixaban 2.5 mg 09/02/18 21:00 09/05/18 08:19 Eliquis* PO 2.5 mg BID TREVOR Administration Clonazepam 0.5 mg 09/02/18 11:56 Klonopin Tab(*) PO BID PRN ANXIETY Docusate Sodium 100 mg 09/02/18 21:00 09/05/18 08:19 Colace Cap* PO 100 mg BID TREVOR Administration Fluoxetine HCl 10 mg 09/02/18 18:00 09/04/18 17:26 Prozac Cap* PO 10 mg 1800 TREVOR Administration Gabapentin 600 mg 09/02/18 21:00 09/05/18 08:19 Neurontin Cap(*) PO 600 mg BID TREVOR Administration Magnesium Hydroxide 30 ml 09/02/18 09:48 Milk Of Magnesia Liq* PO Q6H PRN CONSTIPATION Morphine Sulfate 10 mg 09/03/18 16:41 09/05/18 14:02 Morphine Oral.Soln 10 Mg* PO 10 mg Q4H PRN Administration PAIN - MODERATE TO SEVERE Pto: Pro-Optic 1 dose 09/03/18 09:00 09/05/18 08:19 Areds 2 Mvi/Min PO 1 dose Formula DAILY TREVOR Administration Senna 2 tab 09/02/18 21:00 09/04/18 20:36 Senokot Tab* PO 2 tab BEDTIME TREVOR Administration Tramadol HCl 50 mg 09/02/18 09:53 09/04/18 20:37 Ultram* PO 50 mg Q6H PRN Administration PAIN - MODERATE Vital Signs: Vital Signs Temp Pulse Resp BP Pulse Ox 98.1 F 73 18 131/58 99 09/05/18 05:03 09/05/18 05:03 09/05/18 14:02 09/05/18 05:03 09/05/18 08:00 Exam: HEENT: EOMI LUNGS: Clear bilaterally HEART: Reg rhythm ABDOMEN: Soft, +BS EXTREMITIES: Wound LLE clean. Trace edema left foot Assessment/Plan: 1. Left TKA: Wbat. PT/OT. Follow up with Dr. Gilbert after d/c 2. Neuropathy: Gabapentin 3. Analgesia: Morphine elixir 4. DVT Prophylaxis: Eliquis for 30 days after surgery 5. Advanced Directives: Full code 09/05/18 15:08
[2018-09-05] MEDS: FLUoxetine CAP* 10 MG PO SCH (18:03)
[2018-09-05] MEDS: Senna TAB PO SCH (20:52)
[2018-09-05] MEDS: traMADol TAB* 50 MG PO PRN (20:53)
[2018-09-06] MEDS: Docusate CAP* 100 MG PO SCH ×2 (08:08→20:59)
[2018-09-06] MEDS: Gabapentin CAP(*) 300 MG PO SCH ×2 (08:08→21:02)
[2018-09-06] MEDS: [UNRECOGNIZED DRUG - OTHER] PO SCH (08:09)
[2018-09-06] MEDS: Apixaban* 2.5 MG TAB PO SCH ×2 (08:09→20:59)
[2018-09-06] MEDS: Morphine ORAL.SOLN 10 mg* 2 MG/ML UDC 5 ml PO PRN ×2 (11:45→18:15)
[2018-09-06] MEDS: traMADol TAB* 50 MG PO PRN ×2 (14:20→21:01)
--- NOTE | 2018-09-06 16:38 | PN ---
Progress Note Date of Service: 09/06/18 Note: MAURO CHAUDHARY was visited. Therapy notes read and reviewed. She is ready for discharge tomorrow. I told her we would send her home with MS instant release pills instead of elixir. Current Medications: Active Medications Generic Name Dose Route Start Last Admin Trade Name Freq PRN Reason Stop Dose Admin Acetaminophen 650 mg 09/02/18 11:34 Tylenol Tab* PO Q6H PRN FEVER/PAIN Apixaban 2.5 mg 09/02/18 21:00 09/06/18 08:09 Eliquis* PO 2.5 mg BID TREVOR Administration Clonazepam 0.5 mg 09/02/18 11:56 Klonopin Tab(*) PO BID PRN ANXIETY Docusate Sodium 100 mg 09/02/18 21:00 09/06/18 08:08 Colace Cap* PO 100 mg BID TREVOR Administration Fluoxetine HCl 10 mg 09/02/18 18:00 09/05/18 18:03 Prozac Cap* PO 10 mg 1800 TREVOR Administration Gabapentin 600 mg 09/02/18 21:00 09/06/18 08:08 Neurontin Cap(*) PO 600 mg BID TREVOR Administration Magnesium Hydroxide 30 ml 09/02/18 09:48 Milk Of Magnesia Liq* PO Q6H PRN CONSTIPATION Morphine Sulfate 10 mg 09/03/18 16:41 09/06/18 11:45 Morphine Oral.Soln 10 Mg* PO 10 mg Q4H PRN Administration PAIN - MODERATE TO SEVERE Pto: Pro-Optic 1 dose 09/03/18 09:00 09/06/18 08:09 Areds 2 Mvi/Min PO 1 dose Formula DAILY TREVOR Administration Senna 2 tab 09/02/18 21:00 09/05/18 20:52 Senokot Tab* PO 2 tab BEDTIME TREVOR Administration Tramadol HCl 50 mg 09/02/18 09:53 09/06/18 14:20 Ultram* PO 50 mg Q6H PRN Administration PAIN - MODERATE Vital Signs: Vital Signs Temp Pulse Resp BP Pulse Ox 97.9 F 77 16 116/57 100 09/06/18 06:28 09/06/18 06:28 09/06/18 14:20 09/06/18 06:28 09/06/18 06:28 Exam: HEENT: EOMI LUNGS: Clear bilaterally HEART: Reg rhythm ABDOMEN: Soft, +BS EXTREMITIES: Wound LLE clean. Trace edema left foot NEUROLOGIC: alert and oriented. Moves all 4 extremities. Assessment/Plan: 1. Left TKA: Wbat. PT/OT. Follow up with Dr. Gilbert after d/c 2. Neuropathy: Gabapentin 3. Analgesia: Morphine elixir 4. DVT Prophylaxis: Eliquis for 30 days after surgery 5. Advanced Directives: Full code 09/06/18 16:38
[2018-09-06] MEDS: FLUoxetine CAP* 10 MG PO SCH (18:15)
[2018-09-06] MEDS: Senna TAB PO SCH (21:03)
[2018-09-07 06:11] VITALS: BP 131/66
[2018-09-07] MEDS: Apixaban* 2.5 MG TAB PO SCH (10:28)
[2018-09-07] MEDS: Docusate CAP* 100 MG PO SCH (10:28)
[2018-09-07] MEDS: Gabapentin CAP(*) 300 MG PO SCH (10:29)
[2018-09-07] MEDS: [UNRECOGNIZED DRUG - OTHER] PO SCH (10:29)
[2018-09-07] MEDS: Morphine ORAL.SOLN 10 mg* 2 MG/ML UDC 5 ml PO PRN (11:43)
--- NOTE | 2018-09-07 22:22 | DS ---
CC: Dr. Tram Jolly * DISCHARGE SUMMARY: DATE OF ADMISSION: 09/02/18 DATE OF DISCHARGE: 09/07/18 DISCHARGE DIAGNOSES: 1. Left total knee replacement. 2. Obesity. 3. Status post gastric bypass surgery. 4. Depression. HISTORY OF ILLNESS AND HOSPITAL COURSE: For complete history of the events leading up to her rehab stay, please see the history and physical dictated by me on 09/02/18. While on the rehab unit, the patient received adequate analgesia with oral analgesics. She was maintained on Eliquis for DVT prophylaxis. Her wound appeared clean and dry. The patient was seen by both Physical and Occupational Therapy and made good gains with both disciplines. With physical therapy at the time of admission, she was contact guard for transfers, she was able to ambulate about 45 feet with contact guard. With occupational therapy, she was sat up for upper body dressing, min assist for lower body dressing, contact guard for toilet transfers and toileting. By the time of discharge, she was independent in all activities. She was able to ambulate 150 feet. She was independent with toileting and her activities of daily living. The patient was discharged home on 09/07/18. DISCHARGE MEDICATIONS: 1. Eliquis 2.5 mg twice daily. 2. Klonopin 0.5 mg twice daily as needed. 3. Prozac 10 mg daily. 4. Gabapentin 600 mg twice daily. 5. Zantac 300 mg in the evening as needed. SERVICES AFTER DISCHARGE: The patient will have outpatient physical therapy. FOLLOWUP: The patient will follow up with Dr. Netta Gilbert in 1 week for suture removal. [id number]/[facility] #: [id number] [facility]
== END 2018-09-07 13:30 | disposition home or self-care (01) | DRG 860 ==
LOC: PMRU 09:32
PROVIDERS: ADMIT Physical Medicine & Rehabilitation; ATTEND Physical Medicine & Rehabilitation
PROC: F07Z5ZZ Bed Mobility Treatment (ICD-10-PCS; principal; 2018-09-02)
PROC: F07Z9ZZ Gait Training/Functional Ambulation Treatment (ICD-10-PCS; 2018-09-02)
PROC: F07Z8ZZ Transfer Training Treatment (ICD-10-PCS; 2018-09-02)
PROC: F08Z0ZZ Bathing/Showering Techniques Treatment (ICD-10-PCS; 2018-09-02)
PROC: F08Z1ZZ Dressing Techniques Treatment (ICD-10-PCS; 2018-09-02)
PROC: F08Z3ZZ Feeding/Eating Treatment (ICD-10-PCS; 2018-09-02)
DX: Z47.1 Aftercare following joint replacement surgery (principal); Z68.43 Body mass index [BMI] 50.0-59.9, adult; Z96.652 Presence of left artificial knee joint; E66.9 Obesity, unspecified; F32.9 Major depressive disorder, single episode, unspecified; G62.9 Polyneuropathy, unspecified; Z98.84 Bariatric surgery status; Z79.899 Other long term (current) drug therapy
CPT/HCPCS: 36415; 80053; 85025; A9270-GY

== ENCOUNTER 2018-12-02 06:58 | Inpatient (IN) | payer BC ==
--- NOTE | 2018-11-19 14:05 | HP ---
HISTORY AND PHYSICAL: DATE OF SERVICE: 12/02/18 PROVIDER: Netta Gilbert MD* (dictated by KARIS Carpio). HISTORY OF PRESENT ILLNESS: Ms. Nogueira is a 63-year-old female who has been following up for right knee pain that has been ongoing for years. She reports that her right knee is giving her 10/10 pain. She can no longer participate in physical therapy because of severe right knee pain. She states that the pain is aching, sharp and along the joint line. She finds it difficult to bend and fully extend her knee. She has failed conservative management and would like to proceed with a total knee arthroplasty. PAST MEDICAL HISTORY: 1. Hiatal hernia. 2. Obstructive sleep apnea. 3. Anxiety. 4. Depression. 5. GERD. 6. Macular degeneration. PAST SURGICAL HISTORY: 1. Gastric bypass, 2003. 2. Skin removal, 2005. 3. Ureteroscopy, 2013. 4. Left total knee arthroplasty, 2019. MEDICATIONS: 1. Klonopin 0.5 mg p.r.n. 2. Prozac 10 mg 1 by mouth every day. 3. Multivitamin Adult 1 by mouth every day. 4. Ranitidine hydrochloride 300 mg once per day. 5. Pro-Optic daily. 6. Vitamin B12 1000 mcg daily. 7. Vitamin D 400 daily. 8. Calcium 600 daily. ALLERGIES: No known drug allergies. SOCIAL HISTORY: The patient lives alone. She is retired. She denies any drinking, smoking, or drug use. REVIEW OF SYSTEMS: General: The patient denies any fevers, chills, or night sweats. No known anesthesia problems. HEENT: The patient denies any headaches or lightheadedness. Cardiothoracic: The patient denies any chest pain, heart palpitations. Pulmonary: The patient denies any shortness of breath with exertion, chronic cough. GI: The patient denies any nausea, vomiting, diarrhea, or constipation. : The patient denies any nocturia, urinary frequency, or urgency. MSK: The patient denies any chronic or intermittent back pain. Neuro: The patient denies any paresthesias, numbness, or seizures. Integument: The patient denies any abrasions, lesions, rashes, lumps, or open sores. PHYSICAL EXAMINATION GENERAL: The patient is alert and oriented x3, in no acute distress. Appropriate mood and affect, appropriate dress and hygiene. HEENT: Normocephalic, atraumatic. Hearing and vision are grossly intact. PULMONARY: Lungs are clear to auscultation bilaterally with no wheezes, rales, or rhonchi. CARDIO: Regular rate and rhythm. Normal S1 and S2. No appreciable S3 or S4. No murmurs, rubs, or gallops. MSK: Inspection of the right lower extremity reveals no erythema or ecchymosis. Skin is warm, dry, and intact. Range of motion is 15 degrees shy of full extension to 60 degrees of flexion today. She has pain at terminal ranges. She has positive medial and lateral joint line tenderness to palpation. She has moderate effusion about the knee. She is neurovascularly intact distally with a 2+ dorsalis pedis pulse. IMAGING: X-rays of the right knee were obtained and reviewed today and show severe osteoarthritis tricompartmentally with severe spurring. IMPRESSION: Right knee osteoarthritis, severe, end-stage. PLAN: The patient will return 10 to 14 days postoperatively for suture removal and followup. The risks and complications of the surgery were reviewed today with the patient by Dr. Gilbert. We will see her in the OR on 12/02/18. KARIS CARPIO [id number]/[facility] #: [id number] MTDD
[~2018-12-02 06:58] MED LIST changes: +Acetaminophen IV 1GM/100ML * 1,000 MG/100 ML VIAL IVPB ONE; +Dexamethasone IV* 4 MG/ML 1 ML (4 MG) IV SLOW PU ONE; +Famotidine IV* 10 MG/ML 2 ML (20 mg) IV ONE; +Gabapentin CAP(*) 300 MG PO ONE; +Lactated Ringers 1000 ML Bag* 1,000 ML IV SCH; +celeCOXIB CAP* 200 MG PO ONE
--- OUTSIDE RECORDS SUMMARY | 2018-12-02 07:02 | XMS REPORT | Continuity of Care Document ---
:1955 External Reference #:[id number] Author Name Garrick Jassohernesto Care Team Providers Name Role Phone Tram Jolly MD Primary Care Physician Unavailable Payers Date Identification Numbers Payment Provider Subscriber Policy Number: [id number] [facility] Mauro Chaudhary PayID: [id number] [address] [place] [address] Advance Directives Description No Information Available Problems Date Description Provider Status Onset: 02/15/2016 Knee pain Clementine Redmond MD Active Onset: 02/15/2016 Localized, primary osteoarthritis Clementine Redmond MD Active Onset: 02/15/2016 Obesity Clementine Redmond MD Active Onset: 03/11/2016 Dyssomnia Savana Turner DNP, RN, Active [employer] Onset: 03/11/2016 Hypersomnia Savana Turner DNP, RN, Active [employer] Onset: 03/11/2016 Snoring Savana Turner DNP, RN, Active [employer] Onset: 03/11/2016 Morbid obesity Savana Turner DNP, RN, Active [employer] Onset: 04/11/2016 Obstructive sleep apnea syndrome Savana Turner DNP, RN, Active [employer] Family History Date Family Member(s) Observation Comments General Diabetes General Heart Disease Father CHF ; at age 85 Mother Breast Cancer Mother at age 85 d/t pneumonia Mother Depression Siblings 1 Sister from heart attack at age 49 Social History Type Date Description Comments Sex Unknown Marital Status Lives With Alone Occupation Retired Tobacco Use Start: Unknown Never Smoked Cigarettes Smoking Status Reviewed: 11/19/18 Never Smoked Cigarettes ETOH Use Denies alcohol use Tobacco Use Start: Unknown Patient has never smoked Recreational Drug Use Denies Drug Use Exercise Type/Frequency Exercises regularly walks once daily. Swimming 5-6 times a week. Allergies, Adverse Reactions, Alerts Description No Known Drug Allergies Medications Medication Date Status Form Strength Qnty SIG Indications Ordering Provider Cane 09/27/ Active Misc 1unit Quad cane. Z47.1 Netta2018 s standard Vladimir, adjustable M.D. height cane. Oxycodone HCL 09/17/ Active Tablets 5mg 60tab 1-2 tabs by 2018 s mouth every Vladimir, 4-6 hours as M.D. needed Klonopin / Active Tablets 0.5mg prn Unknown 0000 Multivitamin 00/ Active Tablets 1 by mouth Unknown Adult 0000 every day Ranitidine HCL / Active Capsules 300mg once per day Unknown 0000 Pro Optic / Active qd Unknown 0000 Vitamin B12 / Active Tablets ER 1000mcg 1 by mouth Unknown 0000 every day Vitamin D-400 / Active Tablets 400Unit 1 by mouth Unknown 0000 every day Calcium 600 / Active Tablets 600mg 1 tab by Unknown 0000 mouth daily Prozac / Active Capsules 20mg 1 by mouth Unknown 0000 every day Ranitidine HCL 04/01/ Hx Capsules 60cap Anurag 2018 - s Leeanne Michaels, M.D. 2017 Pro Optic 04/01/ Hx qd Anurag 2018 - DJesus Michaels, M.D. 2017 Vitamin B12 25/ Hx Tablets 1 by mouth Unknown 2015 - every day 2017 Pro Optic 25/ Hx 1 by mouth Unknown 2015 - every day 2017 Vitamin D 25/ Hx Capsules 1 by mouth Unknown 2015 - every day 2017 Prozac 00/ Hx Capsules 10mg 1 by mouth Unknown 0000 - every day 2018 Aviane / Hx Tablets 0.1-20mg-m take one Unknown 0000 - cg tablet by 12/07/ mouth one 2017 time daily Ciclopirox / Hx Solution 8% apply to Unknown 0000 - affected 12/07/ toenails and 2017 surrounding skin at bedtime Calcium 00/00/ Hx Capsules 250mg once a day Unknown 0000 - 2017 Omeprazole / Hx Capsules 20mg 1 by mouth Unknown 0000 - DR every day 2017 600-Unit / Hx Tablets 600-200mg- on tab daily Unknown 0000 - Unit 2018 Medications Administered in Office Medication Date Status Form Strength Qnty SIG Indications Ordering Provider Depomedrol Administered Injection Netta 40MG Jose Carlos Gilbert M.D. Depomedrol Administered Injection Netta 40MG Jose Carlos Gilbert M.D. Depomedrol Administered Injection Netta 40MG Shawna Gilbert M.D. Depkaminirol Administered Injection Netta 40MG Shawna Gilbert M.D. Depomedrol Administered Injection Netta 40MG Ana Harrellrol Administered Injection Netta 40MG Ana Harrellrol Administered Injection Netta 40MG Ana Harrellrol Administered Injection Netta 40MG Ana Harrellrol Administered Injection Netta 40MG Ana Estesrol Administered Injection Netta 40MG Ana Estesrol Administered Injection Netta 40MG Ana Estes Administered Injection Netta 40MG Marline Gilbert M.D. Immunizations CPT Code Status Date Vaccine Lot # [id number] Given 05/01/2016 Influenza Virus Vaccine, Quadrivalent, Split, Preservative Free Vital Signs Date Vital Result Comment 11/19/2018 11:26am Height 62 inches 5'2" Weight 269.00 lb Heart Rate 66 /min BP Systolic 138 mmHg BP Diastolic 82 mmHg BMI (Body Mass Index) 49.2 kg/m2 10/25/2018 10:50am Height 62 inches 5'2" Weight 277.00 lb BP Systolic 126 mmHg BP Diastolic 80 mmHg Pain Level 0 RT knee 11/24 BMI (Body Mass Index) 50.7 kg/m2 09/27/2018 1:33pm Height 62 inches 5'2" Weight 277.00 lb Heart Rate 77 /min BP Systolic Sitting 142 mmHg BP Diastolic Sitting 92 mmHg Pain Level 1 BMI (Body Mass Index) 50.7 kg/m2 09/13/2018 1:40pm Height 62 inches 5'2" Heart Rate 88 /min BP Systolic 128 mmHg BP Diastolic 90 mmHg Body Temperature 97.6 F Pain Level 4 08/20/2018 10:38am Height 62 inches 5'2" Weight [...] BMI (Body Mass Index) 54.9 kg/m2 Results Test Date Facility Test Result H/L Range Note Inr/Protime 08/20/2018 [facility] Inr 0.86 N 0.77-1.[address] [place] [address] [phone] Laboratory test 08/20/2018 [facility] Partial 29.9 seconds N 26.0-36.[address] [place] [address] [place] [address] PTT [phone] Urinalysis 08/20/2018 [facility] Urine Color Yellow Profile [address] [place] [address] [phone] Urine Appearance Clear Urine Specific Upham 1.019 N 1.010-1.030 Urine pH 5.0 N 5-9 Urine Urobilinogen Negative Negative Urine Ketones Negative Negative Urine Protein Negative Negative Urine Leukocytes 2+ Abnormal Negative Urine Blood 2+ Abnormal Negative * * Abnormal Negative 1 Urine Nitrite Negative Negative Urine Bilirubin Negative Negative Urine Glucose Negative Negative Urine White Blood Cell Absent Absent Urine Red Blood Cell 3+(>10/hpf) Abnormal Absent Urine Bacteria Absent Absent Urine Squamous Epithelial Cell Present Abnormal Absent CBC Auto Diff 08/20/2018 [facility] White Blood 6.7 10^3/uL N 3.5-10.[address] [place] [address] [phone] Red Blood Count 4.90 10^6/uL N 4.00-5.40 Hemoglobin 14.2 g/dL N 12.0-16.0 Hematocrit 43 % N 35-47 Mean Corpuscular Volume 87 fL N 80-97 Mean Corpuscular Hemoglobin 29 pg N 27-31 Mean Corpuscular HGB Conc 33 g/dL N 31-36 Red Cell Distribution Width 15 % N 10.5-15 Platelet Count 269 10^3/uL N 150-450 Mean Platelet Volume 7.8 fL N 7.4-10.4 Abs Neutrophils 3.4 10^3/uL N 1.5-7.7 Abs Lymphocytes 2.6 10^3/uL N 1.0-4.8 Abs Monocytes 0.6 10^3/uL N 0-0.8 Abs Eosinophils 0.2 10^3/uL N 0-0.6 Abs Basophils 0 10^3/uL N 0-0.2 Abs Nucleated RBC 0 10^3/uL Granulocyte % 49.8 % Lymphocyte % 39.2 % Monocyte % 8.3 % Eosinophil % 2.5 % Basophil % 0.2 % Nucleated Red Blood Cells % 0.1 Type & Screen 08/20/2018 [facility] Patient Blood Type A Positive [address] [place] [address] [phone] Antibody Screen NEGATIVE Comp Metabolic Panel 08/20/2018 [facility] Sodium 141 mmol/L N [address] [place] [address] [phone] Potassium 4.1 mmol/L N 3.5-5.0 Chloride 106 mmol/L N 101-111 Co2 Carbon Dioxide 28 mmol/L N 22-32 Anion Gap 7 mmol/L N 2-11 Glucose 97 mg/dL N 70-100 Blood Urea Nitrogen 15 mg/dL N 6-24 Creatinine 0.63 mg/dL N 0.51-0.95 BUN/Creatinine Ratio 23.8 High 8-20 Calcium 9.3 mg/dL N 8.6-10.3 Total Protein 6.9 g/dL N 6.4-8.9 Albumin 4.1 g/dL N 3.2-5.2 Globulin 2.8 g/dL N 2-4 Albumin/Globulin Ratio 1.5 N 1-3 Total Bilirubin 0.30 mg/dL N 0.2-1.0 Alkaline Phosphatase 95 U/L N 34-104 Alt 25 U/L N 7-52 Ast 23 U/L N 13-39 Egfr Non- 95.8 >60 Egfr 115.9 >60 2 Urine Culture And 08/20/2018 [facility] Urine Culture SEE RESULT [address] [place] [id number] [phone] 1 *Ascorbic acid is present which may interfere with detection of blood. 2 Because ethnic data is not always readily [...] 15-29 5 Kidney failure <15 (or dialysis) 3 SEE RESULT BELOW Name: MAURO CHAUDHARY : [address]: Netta Gilbert MD Acct: [id number] Unit: [id number] AGE: 63 Location: [facility] Re08/20/18 SEX: F Status: REG REF SPEC: [id number] GEORGES: 08/20/[address] [facility] [address]: Netta Gilbert MD REQ: [id number] RECD: 08/20/18 STATUS: PASCUAL HERNANDEZ DR: Tram Jolly MD _ SOURCE: URINE SPDESC: ORDERED: Urine Culture QUERIES: Urine Source: Clean Catch Procedure Result Reported Site Urine Culture Final 08/21/18- 1217 ML No Growth (<1,000 CFU/mL) * ML - Main Lab . END OF REPORT DEPARTMENT OF PATHOLOGY, [address] [place] [address] Johnathon Nixon M.D. Director [facility] # [id number] Procedures Date Code Description Status 10/25/201802354 Inject/Drain Joint/Bursa Major W/O US Completed 09/13/2018 Inject/Drain Joint/Bursa Major W/O US Completed 08/31/2018 27645 TKR Total Knee Replacement Completed 08/31/2018 13001 TKR Total Knee Replacement Completed 08/19/2018 58988 EKG, Interpretation Only Completed 06/07/201828774 Inject/Drain Joint/Bursa Major W/O US Completed 04/13/2018 86595 Myocardial Perfusion Imaging Tomographic (Spect) Completed Multiple Studies 04/12/2018 56484 Stress Test Supervsn W/Out I/R Completed 04/12/2018 13400 Treadmill Interp/Report Only Completed 04/01/2018 03800 EKG, Interpretation Only Completed 02/08/2018 Inject/Drain Joint/Bursa Major W/O US Completed 10/26/2017 Inject/Drain Joint/Bursa Major W/O US Completed 06/26/2017 [id number] Colonoscopy Completed 05/27/201775716 Inject/Drain Joint/Bursa Major W/O US Completed 05/04/2017 91456266 Colonoscopy Completed 02/13/201768468 Inject/Drain Joint/Bursa Major W/O US Completed 03/18/2016 63387 Sleep Study Unattended,HRT Rate,Oxygen Sat,Resp Completed Effort/Airflow Encounters Type Date Location Provider Dx Diagnosis Office Visit 08/19/2018 Papo Fallon R94.31 Abnormal 10:30a Cardiology Ana Michaels electrocardiogram [ECG] [EKG] R06.02 Shortness of breath Z01.810 Encounter for preprocedural cardiovascular examination M17.12 Unilateral primary osteoarthritis, left knee Office Visit 06/18/2018 [facility] Savana G47.33 Obstructive sleep 9:00a [facility] Turner, RN, apnea (adult) [employer] (pediatric) Z98.84 Bariatric surgery status Z68.42 Body [...] sleep 1:30p [facility] Turner, RN, apnea (adult) [employer] (pediatric) E66.01 Morbid (severe) obesity due to [...] Services Of STEVEN Turner RN, apnea (adult) [facility] (pediatric) E66.01 Morbid (severe) obesity due to excess calories Z68.43 Body mass index (BMI) 50-59.9 , adult Office Visit 06/09/2016 [facility] G47.33 Obstructive sleep 9:15a [facility] Turner RN, apnea (adult) [facility] (pediatric) E66.01 Morbid (severe) obesity due to excess calories Z68.43 Body mass index (BMI) 50-59.9 , adult Office Visit 04/11/2016 [facility] G47.33 Obstructive sleep 10:00a [facility] Turner RN, apnea (adult) [facility] (pediatric) G47.00 Insomnia, unspecified G47.14 Hypersomnia due to medical condition E66.01 Morbid (severe) obesity due to excess calories Z68.43 Body mass index (BMI) 50-59.9 , adult Office Visit 03/28/2016 Orthopedic Netta Gilbert, M17.0 Bilateral primary 10:45a Services Of [facility] osteoarthritis of [facility] knee Office Visit 03/11/2016 [facility] G47.8 Other sleep 8:15a [facility] Turner RN, disorders [facility] G47.10 Hypersomnia, unspecified R06.83 Snoring Office Visit 02/15/2016 1:40p [facility] Clementine Redmond MD M25.562 Pain in left [employer] AT [employer] knee M17.12 Unilateral primary osteoarthritis, left knee E66.9 Obesity, unspecified Plan of Treatment Future Appointment(s):12/15/2018 8:15 am - Netta Gilbert M.D. at [facility]12/02/2018 9:30 am - ROSANA Barbosa at [facility].12/02/2018 9:30 am - KARIS Ambrose at [facility]..12/02/2018 9:30 am - Netta Gilbert M.D. at [facility].06/20/2019 9:15 am - Savana Turner DNP, RN, [employer] at [facility]
--- OUTSIDE RECORDS SUMMARY | 2018-12-02 07:02 | XMS REPORT | Continuity of Care Document ---
:1955 External Reference #:[id number] Author Name Tram Jolly M.D. Address [address] [place] [address] Care Team Providers Name Role Phone Tram Jolly Care Team Information Hitcher Unavailable Tram Jolly Primary Care Physician Unavailable Payers Date Identification Numbers Payment Provider Subscriber Effective: 2004 Policy Number: [id number] Corinna Plan Mauro Chaudhary PayID: [id number] [address] [place] [address] Advance Directives Description No Information Available Problems Active Problems Provider Date Obesity Mariela Bradshaw M.D. Onset: 09/30/2011 Depressive disorder Mariela Bradshaw M.D. Onset: 09/30/2011 Ganglion cyst Mariela Bradshaw M.D. Onset: 09/30/2011 Bariatric Surgery Status Mariela Bradshaw M.D. Onset: 09/30/2011 Anxiety state Mariela Bradshaw M.D. Onset: 12/25/2011 Acute upper respiratory infection Jose Serrato M.D. Onset: 09/27/2012 Otitis media Jose Serrato M.D. Onset: 09/27/2012 Localized, primary osteoarthritis Tram Jolly M.D. Onset: 06/09/2017 Adjustment disorder with depressed mood Tram Jolly M.D. Onset: 10/24/ 2017 Gastroesophageal reflux disease Tram Jolly M.D. Onset: 06/09/2017 Family History Date Family Member(s) Observation Comments General Breast Cancer mother at age 64.- survived. General Coronary Artery Disease PGF and all paternal (CAD) uncles and aunts in their 40's due to heart disease. Father 85 CHF. 2015 6 months after her mom. Mother 2014, dt pneumonia, severe depression, sepsis, lung condition. Number of Children None : (1998) First Sister due to OR at age 49 Social History Type Date Description Comments Sex Unknown Marital Status Patient is in 1996. Had reconnected and were going to live together. He 07/20/2014. Living Situation Patient lives alone Diet Sleep Reports continuity disturbances Occupation retired. worked for [employer] with [facility] [employer]. disabled adults Tobacco Use Start: Unknown Never Smoked Cigarettes Smoking Status Reviewed: 08/04/18 Never Smoked Cigarettes ETOH Use Denies alcohol use Recreational Drug Use Denies Drug Use Tobacco Use Start: Unknown Patient has never smoked Exercise Type/Frequency Exercises regularly -- Current walks once daily. swimming 5-6 times a week. Allergies, Adverse Reactions, Alerts Description No Known Drug Allergies Medications Active Medications SIG Qnty Indications Ordering Provider Date Fluoxetine HCL (PMDD) 1 by mouth every 90tabs Tram Stanley 10/22/2018 day Ana Jolly 20mg Tablets Ranitidine HCL take one tablet 90tabs K21.9 Tram Stanley 03/09/2018 300mg by mouth at Ana Jolly Tablets bedtime Multivitamin 1 a day. Tram Stanley 10/21/2017 Ana Jolly Klonopin 1 by mouth twice 60tabs Tram Stanley 0.5mg Tablets daily for Ana Jolly anxiety Oxycontin 1/2 by mouth Unknown 10mg Tab ER 12H once daily Abuse-Det Pro-Optic 1 po qd Unknown Vitamin D once daily. Unknown 2000Unit Tablets Vitamin B12 1 by mouth every Unknown 1000mcg day Tablets ER Calcium 600 1po every other Unknown 600mg Tablets day History Medications Fluoxetine HCL 1 by mouth every 90caps Tram Stanley 07/09/2018 - 10mg morning Ana Jolly 10/22/2018 Capsules Fluoxetine HCL 1 by mouth every 90caps Tram Stanley 06/01/2018 - 20mg day Ana Jolly 07/09/2018 Capsules Omeprazole 1 by mouth every 90caps K21.9 Tram Stanley 03/09/2018 - 20mg day Ana Jolly 08/04/[address] Jolie Vitale 2 pills by mouth 2tabs Tram Stanley 06/16/2017 - at the same Ana Jolly 08/13/2017 100mg Tablets time. Fluoxetine HCL 1 by mouth every 30caps Tram Stanley 06/09/2017 - 20mg day Ana Jolly 10/21/2017 Capsules Omeprazole 1 by mouth every 30caps F43.21 Tram Stanley 06/09/2017 - 20mg day Ana Jolly 04/20/[address] Browning HCL 1 tab by mouth 30tabs Tram Stanley 06/09/2017 - 20mg every day. Ana Jolly 06/09/2017 Tablets Omeprazole 1 by mouth every 90caps F43.21 Tram Stanley 02/03/2017 - 40mg day Ana Jolly 06/09/[address] Cardoza inject subq Z00.01 Tram Stanley 02/03/2017 - Ana Jolly 02/16/2017 56429Atb/0.65ML Suspension Rec Bactrim DS 1 by mouth twice 10tabs N39.0 Nadine 07/14/2016 - 800-160mg a day Jan Haines 07/19/2016 Tablets Vitamin D take 1 capsule 8caps E55.9 Tram Stanley 03/03/2016 - (Ergocalciferol) by mouth once Ana Jolly 11/27/2016 weekly for 8 [id number] Capsules weeks. Amoxicillin bid x 7 days 14caps Jose Kay 09/27/2012 - 500mg Ana Serrato 01/31/2016 Capsules Prozac 1 po qd 90caps 300.00 Shannan Kirby 09/09/2012 - 20mg Capsules [employer] 01/31/2016 Aviane 1 po qd 1pk 627.2 Shannan Mcculloughrer, 06/14/2012 - 0.1-20mg-mcg [facility] 01/31/2016 Tablets Prozac 1 po qd 180caps 300.00 Shannan Lear, 12/26/2011 - 40mg Capsules [facility] 01/31/2016 Klonopin 1 po bid prn 30tabs 300.00 Mariela Fallon 11/25/2011 - 0.5mg anxiety, caution Ana Bradshaw 09/27/2012 Tablets to sedation, avoid alcohol 311 Ciclopirox Nail apply once daily 1bottle Shannan Kofi, [employer] 11/25/2011 - Lacquer 01/31/2016 8% Solution Penlac Nail Lacquer apply daily to [id number] [facility] 09/23/2010 - 8% fungal nail Ana Hillman 09/30/2011 Solution infection Terbinafine HCL 1 po qd 30tabs Rosibel noble 07/01/2010 - 250mg Ana Hillman 09/23/2010 Tablets Note for medical Rosibel von 07/01/2010 - Weight Watchers reasons minerva Hillman M.D. 09/30/2011 weight loss goal is 175 pounds Prozac 2 po qd 360caps Shad Canela, 04/26/2009 - 20mg Capsules Ana 12/26/2011 Calcium 2 po qd [facility] 04/26/2009 - 600mg Tablets [facility] 01/31/2016 Nyla Vaniqa apply to affected 30gm Rosibel noble 04/22/2007 - 13.9% Cream area Ana Hillman 04/26/2009 Penlac Apply QHS 3.3ml Rosibel noble 12/16/2005 - 8% Solution Ana Hillman 04/26/2009 Colchicine one po tid Until 60units Josiane Lock, 10/08/2004 - 0.6mg SX Resolved Or Afnp-C 05/13/2006 Diarrhea Allopurinol 1 po qd x 1 week 52units Rosibel noble 09/12/2004 - 100mg then 2 po qd x 1 Ana Hillman 09/12/2004 week then 3 po qd Allopurinol 1 po qd 30units Rosibel real 09/12/2004 - 300mg Ana Hillman 10/10/2005 Protonix 1 po qd 0units [facility] 10/24/2003 - 40mg [facility] 09/12/2004 Bennett Colchicine one po tid until 90units Rosibel noble 09/26/2003 - 0.6mg sx resolved or Ana Hillman 09/12/2004 diarrhea. Biaxin 1 PO bid 20tabs Shannan Kirby, [employer] 11/03/2002 - 500mg Tabs 11/14/2002 Albuterol Inhaler 2 Puffq 3-4 HRS 1units Shannan Kirby, [facility] 11/03/2002 - prn 11/14/2002 [facility] 11/03/2001 - 25mg Cap Gout L Toe [facility] 02/28/2003 Bennett Biaxin 1TSP PO bid [facility] 11/03/2001 - 250mg/5cc [facility] 11/13/2001 Bennett Penlac Apply QHS One Garry Martinez, 12/18/2000 - Bottle M.D. 04/17/2001 Vaniqa Apply as Directed 30gm Garry Martinez, 09/08/2000 - bid M.D. 02/28/2003 Prozac 2 qd 180units Garry Martinez, 06/17/2000 - 20mg M.D. 07/29/2001 Actos 1 Q Am 90units Garry Martinez, 06/17/2000 - 30mg M.D. 09/26/2003 Tobrex 1 GGT OU qid Smbottle Garry Martinez, 04/18/2000 - Ophth Soln Until Clear M.D. 12/18/2000 Actos 1 Q Am 90units Garry Martinez, 12/11/1999 - 15mg M.D. 06/17/2000 Biaxin 1 PO bid 20units Johnathon Topete, 12/08/1998 - 500mg M.D. 12/18/1998 Amoxicillin 1 bid 20tabs Garry Martinez, 12/05/1998 - 500mg M.D. 12/08/1998 Tablets Prozac 1 PO qd 90units Nadine Hilsdorf, 05/16/1998 - 20mg Afnp-C 06/17/2000 Amoxicillin 1 Tablet 3 Times 30tabs Josiane Lock, 03/01/1998 - 500mg Daily Afnp-C 03/11/1998 Tablets Cortisporin Otic 3-4gtts qid 1units Josiane Lock, 03/01/1998 - Afnp-C 03/06/1998 For 5-7 D Rezulin 1 qd 90units Garry Martinez, 06/08/1997 - 400mg M.D. 12/11/1999 Glucotrol XL 1 PO qod 90units Garry Martinez, 06/08/1997 - 5mg M.D. 02/08/1998 Multivitamin 1 qd 100units Garry Martinez, 05/18/1997 - M.D. 09/12/2004 Relafen 2 qd 180units Garry Martinez, 05/15/1997 - 500mg 2 M.D. 09/26/2003 Diflucan 2 Stat 1 PO qd X 4units Garry Martinez, 05/09/1997 - 100mg 2 Days M.D. 05/17/1997 Multi Vitamin 1 po qd [facility] 01/31/2016 Bennett Prozac 1 by mouth every 90caps Tram Jolly, - 40mg Capsules day M.D. 06/09/2017 Immunizations CPT Code Status Date Vaccine Lot # [id number] Given 02/03/2017 Zostivax [id number] Given 01/31/2016 Tdap Tetanus, W Pertussis [id number] Given 06/06/2013 DO Not Use Split Influenza Virus Vaccine [id number] Vital Signs Date Vital Result Comment 11/16/2018 3:36pm BP Systolic 124 mmHg BP Diastolic 72 mmHg Heart Rate 76 /min Body Temperature 98.1 F Respiratory Rate 16 /min Height 62 inches 5'2" 10/22/2018 9:49am BP Systolic 132 mmHg BP Diastolic 88 mmHg Heart Rate 72 /min Body Temperature 97.2 F Height 62 inches 5'2" 08/04/2018 3:01pm BP Systolic 130 mmHg BP Diastolic 80 mmHg Heart Rate 68 /min Body Temperature 98.2 F Respiratory Rate 18 /min Height 62 inches 5'2" Weight 276.00 lb BMI (Body Mass Index) 50.5 kg/m2 04/20/2018 2:35pm BP Systolic 110 mmHg BP Diastolic 72 mmHg Heart Rate 66 /min Body Temperature 98.3 F Respiratory Rate 18 /min Height 62 inches 5'2" Weight 273.00 lb BMI (Body Mass Index) 49.9 kg/m2 03/09/2018 10:54am BP Systolic 124 mmHg BP Diastolic 78 mmHg Heart Rate 68 /min Body Temperature 97.8 F Respiratory Rate 16 /min Height 62 inches 5'2" Weight 268.00 lb BMI (Body Mass Index) 49.0 kg/m2 10/21/2017 2:48pm BP Systolic 112 mmHg BP Diastolic 74 mmHg Heart Rate 72 /min Body Temperature 97.5 F Height 61 inches 5'1" Weight 266.12 lb BMI (Body Mass Index) 50.3 kg/m2 08/13/2017 10:03am BP Systolic 122 mmHg BP Diastolic 74 mmHg Heart Rate 64 /min Body Temperature 97.5 F Respiratory Rate 16 /min Height 61 inches 5'1" Weight 269.12 lb BMI (Body Mass Index) 50.8 kg/m2 06/09/2017 9:51am BP Systolic 138 mmHg BP Diastolic 90 mmHg Heart Rate 68 /min Body Temperature 98.1 F Respiratory Rate 18 /min Height 61 inches 5'1" Weight 270.00 lb BMI (Body Mass Index) 51.0 kg/m2 02/03/2017 8:57am BP Systolic 120 mmHg BP Diastolic 80 mmHg Heart Rate 72 /min Body Temperature 98.1 F Respiratory Rate 18 /min Height 61 inches 5'1" Weight 280.00 lb BMI (Body Mass Index) 52.9 kg/m2 11/27/2016 9:43am BP Systolic 128 mmHg BP Diastolic 90 mmHg Heart Rate 68 /min Body Temperature 98.2 F Respiratory Rate 18 /min Height 62 inches 5'2" Weight 299.00 lb BMI (Body Mass Index) 54.7 kg/m2 07/30/2016 3:20pm BP Systolic 138 mmHg BP Diastolic 82 mmHg Heart Rate 76 /min Body Temperature 98.9 F Height 62 inches 5'2" 07/14/2016 10:46am BP Systolic 134 mmHg BP Diastolic 86 mmHg Heart Rate 84 /min Body Temperature 98.2 F Respiratory Rate 18 /min Height 62 inches 5'2" 03/03/2016 3:06pm BP Systolic 124 mmHg BP Diastolic 84 mmHg Heart Rate 80 /min Body Temperature 97.3 F Respiratory Rate 18 /min Height 62 inches 5'2" 01/31/2016 1:04pm BP Systolic 120 mmHg BP Diastolic 88 mmHg Heart Rate 68 /min Body Temperature 98.0 F Respiratory Rate 18 /min Height 62 inches 5'2" 09/27/2012 2:16pm BP Systolic 130 mmHg BP Diastolic 80 mmHg Heart Rate 62 /min Body Temperature 100.0 F Height 62 inches 5'2" Weight 222.00 lb BMI (Body Mass Index) 40.6 kg/m2 09/09/2012 9:03am BP Systolic 110 mmHg BP Diastolic 80 mmHg Heart Rate 60 /min Body Temperature 98.1 F Height 62 inches 5'2" Weight 122.00 lb BMI (Body Mass Index) 22.3 kg/m2 06/14/2012 4:04pm BP Systolic 128 mmHg BP Diastolic 80 mmHg Heart Rate 60 /min Body Temperature 98.3 F Height 62 inches 5'2" Weight 215.00 lb BMI (Body Mass Index) 39.3 kg/m2 04/20/2012 1:28pm BP Systolic 130 mmHg BP Diastolic 78 mmHg Heart Rate 80 /min Height 62 inches 5'2" Weight 217.00 lb BMI (Body Mass Index) 39.7 kg/m2 03/17/2012 2:35pm BP Systolic 118 mmHg BP Diastolic 60 mmHg Heart Rate 76 /min Body Temperature 96.5 F Height 62 inches 5'2" Weight 212.00 lb BMI (Body Mass Index) 38.8 kg/m2 12/25/2011 4:15pm BP Systolic 118 mmHg BP Diastolic 80 mmHg Heart Rate 80 /min Height 62 inches 5'2" Weight 208.00 lb BMI (Body Mass Index) 38.0 kg/m2 11/25/2011 4:06pm BP Systolic 120 mmHg BP Diastolic 84 mmHg Heart Rate 72 /min Body Temperature 98.1 F Height 62 inches 5'2" Weight 210.00 lb BMI (Body Mass Index) 38.4 kg/m2 09/30/2011 4:21pm BP Systolic 130 mmHg BP Diastolic 82 mmHg Heart Rate 88 /min Body Temperature 97.1 F Height 62 inches 5'2" Weight 211.00 lb BMI (Body Mass Index) 38.6 kg/m2 07/01/2010 3:55pm BP Systolic 120 mmHg BP Diastolic 68 mmHg Heart Rate 80 /min Height 62 inches 5'2" Weight 189.00 lb BMI (Body Mass Index) 34.6 kg/m2 06/25/2009 5:45pm BP Systolic 128 mmHg BP Diastolic 66 mmHg Heart Rate 60 /min Body Temperature 97.2 F Height 62 inches 5'2" Weight 202.00 lb BMI (Body Mass Index) 36.9 kg/m2 04/26/2009 11:26am BP Systolic 126 mmHg BP Diastolic 64 mmHg Heart Rate 60 /min Respiratory Rate 18 /min Height 62 inches 5'2" Weight 213.00 lb BMI (Body Mass Index) 39.0 kg/m2 05/22/2008 4:33pm BP Systolic 128 mmHg BP Diastolic 78 mmHg Heart Rate 74 /min Height 62 inches 5'2" Weight 235.00 lb BMI (Body Mass Index) 43.0 kg/m2 04/15/2007 3:57pm BP Systolic 128 mmHg BP Diastolic 82 mmHg Heart Rate 80 /min Height 62 inches 5'2" Weight 235.00 lb BMI (Body Mass Index) 43.0 kg/m2 05/13/2006 4:31pm BP Systolic 122 mmHg BP Diastolic 80 mmHg Heart Rate 76 /min Height 62 inches 5'2" Weight 221.00 lb BMI (Body Mass Index) 40.4 kg/m2 10/10/2005 1:19pm BP Systolic 112 mmHg BP Diastolic 50 mmHg Heart Rate 72 /min Weight 240.00 lb 01/01/2005 4:25pm BP Systolic 104 mmHg BP Diastolic 66 mmHg Heart Rate 72 /min Weight 253.00 lb 11/12/2004 4:18pm BP Systolic 122 mmHg BP Diastolic 80 mmHg Heart Rate 70 /min Weight 259.00 lb 10/08/2004 11:43am BP Systolic 120 mmHg BP Diastolic 80 mmHg Body Temperature 99.3 F Weight 259.00 lb 09/12/2004 4:33pm BP Systolic 120 mmHg BP Diastolic 80 mmHg Heart Rate 80 /min Weight 262.00 lb 06/20/2004 8:57am BP Systolic 122 mmHg BP Diastolic 60 mmHg Body Temperature 98.3 F 06/17/2004 5:06pm BP Systolic 104 mmHg BP Diastolic 64 mmHg Heart Rate 60 /min Weight 275.00 lb 02/01/2004 4:20pm BP Systolic 110 mmHg BP Diastolic 70 mmHg Heart Rate 72 /min Weight 311.00 lb 10/24/2003 1:11pm BP Systolic 124 mmHg Thigh Cuff BP Diastolic 80 mmHg Thigh Cuff Body Temperature 97.2 F 09/26/2003 3:08pm BP Systolic 136 mmHg BP Diastolic 78 mmHg Heart Rate 96 /min 07/06/2003 4:29pm BP Systolic 148 mmHg BP Diastolic 80 mmHg Heart Rate 72 /min 02/28/2003 2:19pm BP Systolic 120 mmHg BP Diastolic 80 mmHg Heart Rate 88 /min 11/03/2002 9:09am BP Systolic 130 mmHg BP Diastolic 78 mmHg Heart Rate 80 /min Body Temperature 97.9 F 09/13/2002 11:42am BP Systolic 126 mmHg BP Diastolic 70 mmHg Heart Rate 80 /min 03/31/2002 4:09pm BP Systolic 130 mmHg BP Diastolic 68 mmHg Heart Rate 76 /min 11/25/2001 3:58pm BP Systolic 124 mmHg BP Diastolic 72 mmHg Heart Rate 84 /min Respiratory Rate 12 /min 11/03/2001 2:20pm BP Systolic 128 mmHg BP Diastolic 78 mmHg Heart Rate 88 /min Body Temperature 97.2 F Respiratory Rate 18 /min 07/29/2001 4:41pm BP Systolic 110 mmHg BP Diastolic 70 mmHg Heart Rate 88 /min Body Temperature 96.7 F Respiratory Rate 26 /min 04/29/2001 4:38pm BP Systolic 108 mmHg BP Diastolic 78 mmHg Heart Rate 80 /min Body Temperature 97.4 F Respiratory Rate 14 /min 12/18/2000 4:17pm BP Systolic 144 mmHg BP Diastolic 80 mmHg Heart Rate 94 /min 09/08/2000 10:04am BP Systolic 168 mmHg LA LG Cuff BP Diastolic 86 mmHg LA LG Cuff Heart Rate 80 /min Reg 06/17/2000 4:15pm BP Systolic 138 mmHg BP Diastolic 84 mmHg Heart Rate 88 /min 03/12/2000 4:52pm BP Systolic 120 mmHg LA LG Cuff BP Diastolic 80 mmHg LA LG Cuff Heart Rate 84 /min 12/11/1999 4:23pm BP Systolic 156 mmHg LA LG Cuff BP Diastolic 88 mmHg LA LG Cuff 08/21/1999 4:24pm BP Systolic 150 mmHg BP Diastolic 86 mmHg 05/08/1999 4:20pm BP Systolic 134 mmHg BP Diastolic 70 mmHg 02/06/1999 4:42pm BP Systolic 160 mmHg L LG Cuff BP Diastolic 90 mmHg L LG Cuff 12/08/1998 10:14am Body Temperature 97.1 F 12/05/1998 11:02am Body Temperature 99.0 F 10/11/1998 3:50pm BP Systolic 124 mmHg BP Diastolic 80 mmHg 07/11/1998 4:28pm BP Systolic 132 mmHg BP Diastolic 90 mmHg 05/16/1998 4:42pm BP Systolic 130 mmHg BP Diastolic 80 mmHg 03/14/1998 4:47pm BP Systolic 120 mmHg LG Cuff BP Diastolic 70 mmHg LG Cuff Body Temperature 97.8 F 03/01/1998 4:16pm Body Temperature 97.8 F 01/25/1998 5:06pm BP Systolic 142 mmHg LA LG Cuff BP Diastolic 88 mmHg LA LG Cuff 11/02/1997 12:00am BP Systolic 120 mmHg BP Diastolic 82 mmHg 09/06/1997 12:00am BP Systolic 152 mmHg LG Cuff BP Diastolic 90 mmHg LG Cuff 06/28/1997 12:00am BP Systolic 130 mmHg BP Diastolic 90 mmHg 06/08/1997 12:00am BP Systolic 162 mmHg BP Diastolic 100 mmHg 05/18/1997 12:00am BP Systolic 152 mmHg BP Diastolic 100 mmHg Weight 350.00 lb Results Test Date Facility Test Result H/L Range Note CBC Auto Diff 08/20/2018 [facility] White Blood Count 6.7 10^3/uL N 3.5-10.8 Red Blood Count 4.90 10^6/uL N 4.00-5.40 [...] % Nucleated Red Blood Cells % 0.1 Inr/Protime 08/20/2018 [facility] Inr 0.86 N 0.77-1.02 Laboratory test finding 08/20/2018 [facility] Partial Thrombo 29.9 seconds N 26.0-36.3 Time PTT Urinalysis Profile 08/20/2018 [facility] Urine Color Yellow Urine Appearance Clear Urine Specific [place] 1.019 N 1.010-1.030 Urine pH 5.0 N [...] Urine Squamous Epithelial Cell Present Abnormal Absent Comp Metabolic Panel 08/20/2018 [facility] Sodium 141 mmol/L N 135-145 Potassium 4.1 mmol/L N 3.5-5.0 Chloride 106 [...] Non- 95.8 >60 Egfr 115.9 >60 2 Type & Screen 08/20/2018 [facility] Patient Blood Type A Positive Antibody Screen NEGATIVE Urine Culture And 08/20/2018 [facility] Urine Culture SEE RESULT 3 Sensitivities BELOW CBC Electronic Fma 03/23/2018 Vanessa Ricarda WBC 5.6 x10^3/UL 4.0-10. 0 RBC 4.76 x10^6/UL 3.93-6.00 HGB 13.8 g/dL 12.0-17.0 HCT 42 % 35-50 MCV 88.2 fL 80.0-95.0 MCH 29.0 pg 25.6-32.2 MCHC 32.9 g/dL 32.2-36.0 RDW-CV 13.8 % 11.6-14.4 PLT 212 x10^3/UL 163-400 MPV 9.9 fL 9.4-12.4 Peter# 2.57 x10^3/UL 1.56-6.13 Lymph# 2.36 x10^3/UL 1.18-3.74 Sharkey# 0.49 x10^3/UL 0.24-0.82 Eos # 0.1 x10^3/UL 0.0-0.5 Baso # 0.01 x10^3/UL 0.01-0.08 Peter% 46.0 % 34.0-70.0 Lymph % 42.3 % 20.0-52.0 Sharkey% 8.8 % 5.0-12.0 Eos% 2.5 % 0.7-7.0 Baso% 0.2 % 0.1-1.2 Comprehensive Metabolic Prof 03/23/2018 [facility] Sodium 136 mEq/L 134-149 Potassium 4.4 mEq/L [...] GFR >60 ml/min/1.73m^ >=60 Lipid Profile 03/23/2018 [facility] Cholesterol 191 mg/dL 120-200 Triglycerides 140 mg/dL 30-200 HDL Cholesterol 65 mg/dL 30-85 LDL (Calculated) 98 CALC 0-129 VLDL Cholesterol 28 mg/dL 0-50 HDL Risk Factor 2.9 CALC 0.0-4.4 Laboratory test 03/23/2018 [facility] TSH 1.59 mIU/L 0.50-6.00 finding Laboratory test 02/03/2017 [facility] Vitamin D, 42.3 ng/mL 30.0-100.0 4, [address] [place] [address] 25[place] [address] (607)- - Metabolic Panel 02/03/2017 [facility] Glucose, 96 mg/dL 65-99 (14), Comprehensive [address] [place] [address] [place] [address] (607)- - BUN 16 mg/dL 8-27 Creatinine, Serum 0.70 mg/dL 0.57-1.00 eGFR If NonAfricn Am 94 mL/min/1.73 >59 eGFR If Africn Am 109 mL/min/1.73 >59 BUN/Creatinine Ratio 23 12-28 Sodium, Serum 142 mmol/L 134-144 Potassium, Serum 4.8 mmol/L 3.5-5.2 Chloride, Serum 104 mmol/L 96-106 Carbon Dioxide, Total 21 mmol/L 18-29 Calcium, Serum 9.2 mg/dL 8.7-10.3 Protein, Total, Serum 7.0 g/dL 6.0-8.5 Albumin, Serum 4.1 g/dL 3.6-4.8 Globulin, Total 2.9 g/dL 1.5-4.5 A/G Ratio 1.4 1.2-2.2 Bilirubin, Total 0.3 mg/dL 0.0-1.2 Alkaline Phosphatase, S 101 IU/L 39-117 Ast (Sgot) 16 IU/L 0-40 Alt (SGPT) 12 IU/L 0-32 CBC With 02/03/2017 [facility] WBC 6.1 x10E3/uL 3.4-10.8 Differential/Platelet [address] [place] [id number] (607)- - RBC 4.92 x10E6/uL 3.77-5.28 Hemoglobin 13.9 g/dL 11.1-15.9 Hematocrit 43.1 % 34.0-46.6 MCV 88 fL 79-97 MCH 28.3 pg 26.6-33.0 MCHC 32.3 g/dL 31.5-35.7 RDW 14.4 % 12.3-15.4 Platelets 258 x10E3/uL 150-379 Neutrophils 55 % Lymphs 36 % Monocytes 7 % Eos 2 % Basos 0 % Immature Cells TNP Neutrophils (Absolute) 3.3 x10E3/uL 1.4-7.0 Lymphs (Absolute) 2.2 x10E3/uL 0.7-3.1 Monocytes(Absolute) 0.5 x10E3/uL 0.1-0.9 Eos (Absolute) 0.1 x10E3/uL 0.0-0.4 Baso (Absolute) 0.0 x10E3/uL 0.0-0.2 Immature Granulocytes 0 % Immature Grans (Abs) 0.0 x10E3/uL 0.0-0.1 NRBC TNP Hematology Comments: TNP Laboratory test 02/03/2017 [facility] TSH 0.975 uIU/mL 0.450-4.500 finding [address] [place] [address] (551)- - Basic Metabolic 11/27/2016 [facility] Glucose, 91 mg/dL 65-99 Panel (8) [address] [place] [address] [place] [address] (431)- - BUN 14 mg/dL 8-27 Creatinine, Serum 0.70 mg/dL 0.57-1.00 eGFR If NonAfricn Am 94 mL/min/1.73 >59 eGFR If Africn Am 109 mL/min/1.73 >59 BUN/Creatinine Ratio 20 12-28 Sodium, Serum 142 mmol/L 134-144 Potassium, Serum 5.0 mmol/L 3.5-5.2 Chloride, Serum 105 mmol/L 96-106 Carbon Dioxide, Total 23 mmol/L 18-29 Calcium, Serum 9.1 mg/dL 8.7-10.3 Urine Culture 07/14/2016 [facility] Urine Culture, Final report 6, [address] [place] [address] [place] [address] (049)- - Result 1 No growth 8 Ua - Micro (Fma) 07/14/2016 [facility] Appearance clear (607)- - Color yellow Glucose, Urine (Fma/CMC/CTX) neg Bilirubin neg Ketones neg SP Grav <1.005 Blood small # PH 5.5 Protein neg Urobil 0.2 Nitrite neg Leukocytes (Fma/CMC/[facility]) small # Hyaline - /Lpf Granular - /Lpf WBC (Fma,[facility]) 10-12 # RBC 1-2 # Mucus (Fma/CBC/[facility]) - /Lpf Epith occass /Lpf # Bacteria trace /Hpf # Amorphous (Fma/CMC/[facility]) - /Lpf Crystals, Fluid (Fma/CMC/CTX) - Z#Comments - Lipid Panel 02/28/2016 [facility] Cholesterol, Total 157 mg/dL 100-199 9 [address] [place] [address] (607)- - Triglycerides 108 mg/dL 0-149 HDL Cholesterol 68 mg/dL >39 10 VLDL Cholesterol Aman 22 mg/dL 5-40 LDL Cholesterol Calc 67 mg/dL 0-99 Comment: TNP CBC With 02/28/2016 [facility] WBC 6.2 x10E3/uL 3.4-10.8 Differential/Platelet [address] [place] [address] (607)- - RBC 5.03 x10E6/uL 3.77-5.28 Hemoglobin 13.9 g/dL 11.1-15.9 Hematocrit 42.7 % 34.0-46.6 MCV 85 fL 79-97 MCH 27.6 pg 26.6-33.0 MCHC 32.6 g/dL 31.5-35.7 RDW 14.7 % 12.3-15.4 Platelets 220 x10E3/uL 150-379 Neutrophils 51 % Lymphs 40 % Monocytes 7 % Eos 2 % Basos 0 % Immature Cells TNP Neutrophils (Absolute) 3.1 x10E3/uL 1.4-7.0 Lymphs (Absolute) 2.5 x10E3/uL 0.7-3.1 Monocytes(Absolute) 0.5 x10E3/uL 0.1-0.9 Eos (Absolute) 0.2 x10E3/uL 0.0-0.4 Baso (Absolute) 0.0 x10E3/uL 0.0-0.2 Immature Granulocytes 0 % Immature Grans (Abs) 0.0 x10E3/uL 0.0-0.1 [facility] Hematology Comments: [facility] Metabolic Panel 02/28/2016 [facility] Glucose, Serum 101 mg/dL High 65-99 (14), Comprehensive [address] [place] [address] (607)- - BUN 13 mg/dL 6-24 Creatinine, Serum 0.61 mg/dL 0.57-1.00 eGFR If NonAfricn Am 100 mL/min/1.73 >59 eGFR If Africn Am 115 mL/min/1.73 >59 BUN/Creatinine Ratio 21 9-23 Sodium, Serum 142 mmol/L 134-144 Potassium, Serum 4.7 mmol/L 3.5-5.2 Chloride, Serum 105 mmol/L 97-108 Carbon Dioxide, Total 21 mmol/L 18-29 Calcium, Serum 9.0 mg/dL 8.7-10.2 Protein, Total, Serum 6.7 g/dL 6.0-8.5 Albumin, Serum 4.0 g/dL 3.5-5.5 Globulin, Total 2.7 g/dL 1.5-4.5 A/G Ratio 1.5 1.1-2.5 Bilirubin, Total 0.3 mg/dL 0.0-1.2 Alkaline Phosphatase, S 97 IU/L 39-117 Ast (Sgot) 21 IU/L 0-40 Alt (SGPT) 21 IU/L 0-32 Laboratory test 02/28/2016 [facility] Thyroxine (T4) 1.40 ng/dL 0.82-1.[address] [facility] Free, [address] [place] [address] (609)- - TSH 2.040 uIU/mL 0.450-4.500 Vitamin D, 25-Hydroxy 25.4 ng/mL Low 30.0-100.0 11 Comprehensive 11/09/2012 [facility] Glucose 93 mg/dL 70-100 12 Metabolic [address] [place] [address] [phone] BUN 16 mg/dL 4-18 Creatinine, Serum 0.76 mg/dL 0.50-1.10 Sodium 141 mmol/L 136-146 Potassium 4.5 mmol/L 3.5-5.3 Chloride 109 mmol/L 98-110 Carbon Dioxide 28 mmol/L 20-32 Albumin 4.0 g/dL 3.5-4.7 Protein, Total 6.8 g/dL 6.4-8.3 Calcium 8.9 mg/dL 8.4-10.4 Alkaline Phosphatase 82 U/L 10-118 Sgot (Ast) 27 U/L 3-40 SGPT (Alt) 28 U/L 7-50 Bilirubin, Total 0.30 mg/dL 0.30-1.20 Lipid Panel 11/09/2012 [facility] Cholesterol, Total 138 mg/dL <200 [address] [place] [address] [phone] Triglycerides 79 mg/dL <150 HDL Cholesterol 54 mg/dL 40-60 Chol/HDL Cholesterol 2.6 13 LDL Cholesterol, Calc. 68 mg/dL 14 LDL/HDL Cholesterol 1.3 15 Egfr (Calculated) 11/09/2012 [facility] Estimated GFR (CALCULATED) [address] [place] [address] [phone] Egfr >60 16 Egfr, -Citizen Of [place] >60 17 CBC Electronic (Fma) 11/08/2012 [facility] WBC 4.4 3.6-9.6 (607)- - RBC 4.76 3.90-5.70 Hemoglobin (Fma/CMC/CTX) 14.1 g/dL 12.1 - 17.2 Hematocrit (Fma/CMC/CTX) 42.3 % 36.1 - 50.3 Platelets 264 10^3/ul 150-400 Lymph% 40.7 20.5-51.1 Mixed% 5.9 Neutrophils % 54.4 Mean Corpuscular Vol 89 82.2-97.4 Mean Corpuscular Hemoglobin 29.6 27.6-33.3 Mean Corpuscular Hemo Concen 33.3 32.0-36.0 RDW 12.1 11.6-13.7 Mean Platelet Volume 7.8 6.5-11.0 Egfr (Calculated) 11/06/2011 [facility] Estimated GFR (CALCULATED) [address] [place] [address] [phone] Egfr >60 19 Egfr, -Citizen Of [place] >60 20 Iron/Tibc,%Sat Group 11/06/2011 [facility] Iron 69 g/dL 30-158 [address] [place] [address] [phone] Total Iron Binding Cap. 363 g/dL 250-450 % Iron Saturation 19.0 % 13.0-45.0 CBC 11/06/2011 [facility] WBC 4.3 x10E3/uL 4.3-10.[address] [place] [phone] RBC 4.92 x10E6/uL 3.80-5.30 Hemoglobin 14.2 g/dL 11.8-15.8 Hematocrit 43.8 % 35.0-47.0 MCV 89.0 fl 82.0-98.0 MCH 28.9 pg 27.5-33.5 MCHC 32.4 g/dL 32.0-36.0 RDW 14.6 % High 11.5-14.5 Platelet Count 220 x10E3/uL 130-400 MPV 10.7 fl High 6.5-10.5 Segmented Neutrophils 43.2 % Low 44.0-74.0 Lymphocytes 43.8 % 15.0-45.0 Monocytes 9.7 % 2.0-13.0 Eosinophils 2.8 % 0.0-6.0 Basophils 0.5 % 0.0-2.0 Neutrophil Absolute 1.9 x10E3/uL 1.4-7.0 Lymphocytes Absolute 1.9 x10E3/uL 1.0-3.4 Monocyte Absolute 0.4 x10E3/uL 0.2-1.0 Eosinophil Absolute 0.1 x10E3/uL 0.0-0.5 Basophil Absolute 0.0 x10E3/uL 0.0-0.2 Lipid Panel 11/06/2011 [facility] Cholesterol, Total 160 mg/dL <[address] [place] [phone] Triglycerides 57 mg/dL <150 HDL Cholesterol 64 mg/dL High 40-60 Chol/HDL Cholesterol 2.5 21 LDL Cholesterol, Calc. 85 mg/dL 22 LDL/HDL Cholesterol 1.3 23 Comprehensive Metabolic 11/06/2011 [facility] Glucose 81 mg/dL 70-[address] [place] [address] [phone] BUN 18 mg/dL 4-18 Creatinine, Serum 0.71 mg/dL 0.50-1.10 Sodium 142 mmol/L 136-146 Potassium 4.3 mmol/L 3.5-5.3 Chloride 106 mmol/L 98-110 Carbon Dioxide 27 mmol/L 20-32 Albumin 4.2 g/dL 3.5-4.7 Protein, Total 7.2 g/dL 6.4-8.3 Calcium 9.5 mg/dL 8.4-10.4 Alkaline Phosphatase 94 U/L 10-118 Sgot (Ast) 21 U/L 3-40 SGPT (Alt) 18 U/L 7-50 Bilirubin, Total 0.30 mg/dL 0.30-1.20 Laboratory test 11/06/2011 [facility] Folic >24.0 [address] Acid(Folate)Serum ng/ml [place] [id number] [phone] Vitamin B-12 444 pg/mL 25 Vitamin D, 25 Oh 40.7 ng/mL 30.0-100.0 26 Magnesium 2.1 mg/dL 1.7-2.7 Phosphorous 4.0 mg/dL 2.8-4.7 Bilirubin, Direct 0.14 mg/dL 0.00-0.40 Laboratory test 10/09/2010 [facility] Vitamin A (Retinol) 70.0 g/dL 32.5- 78.0 27 finding Vitamin D, 25 Hydroxy 10/09/2010 [facility] 25-Hydroxy Vitamin D2 <4.0 ng/mL ( ) 25-Hydroxy Vitamin D3 52 ng/mL () 25-Hydroxy Vitamin D Total 52 ng/mL () 28 Comp Metabolic Panel 10/09/2010 [facility] Sodium 137 mmol/L 135-145 Potassium 3.9 mmol/L 3.5-5.0 Chloride 101 mmol/L 101-111 Co2 (Carbon Dioxide) 29.0 mmol/L 22-32 Anion Gap 7.0 mmol/L 2-11 29 Glucose 79 mg/dL 70-100 BUN 9 mg/dL 6-24 Creatinine 0.60 mg/dL 0.50-1.40 One Over Creatinine 1.60 BUN/Creatinine Ratio 15.0 8-20 Calcium 8.9 mg/dL 8.1-9.9 Total Protein 6.5 GM/DL 6.2-8.1 Albumin 3.7 GM/DL 3.6-5.4 Globulin 2.8 GM/DL 2-4 Albumin/Globulin Ratio 1.3 1-3 Bilirubin Total 0.5 mg/dL 0.4-1.5 30 Alkaline Phosphatase 76 U/L 30-110 Alt (SGPT) 31 U/L 14-54 Ast (Sgot) 33 U/L 12-42 eGFR Non- 104.2 > 60 eGFR 134.0 > 60 31 Iron & Iron Binding Capacity 10/09/2010 [facility] Iron Total 88 g/dL 28-170 Unsaturated Iron Binding 317 g/dL Total Iron Binding Capacity 405 g/dL 250-450 % Iron Saturation 22 % 15-55 Manual Differential 10/09/2010 [facility] Polysegmented Neutrophil 37 % Low 38- 83 Lymphocyte 48 % High 25-47 Monocyte 8 % 0-13 Eosinophil 6 % 0-6 Atypical Lymph 1 % 0-6 Absolute Neutrophil Count 1.4 Anisocytosis SLIGHT Manual Diff Comments (SEE NOTE) 32 CBC With Electronic Diff 10/09/2010 [facility] White Blood Count 3.8 CUMM Low 4.8-10.8 Red Cell Count 4.65 CUMM 4.2-5.4 Hemoglobin 13.2 g/dL 12.0-16.0 Hematocrit 40 % 35-47 Mean Corpuscular Volume 85 um3 79-97 Mean Corpuscular Hemoglob 28 pg 27-31 Mean Corpuscular HGB Cone 33 g/dL 32-36 Redcell Distribution WDTH 15 % 10.5-15 Platelet Count 192 CUMM 150-450 Mean Platelet Volume 8.1 um3 7.4-10.4 33 Laboratory test finding 10/09/2010 [facility] Ferritin 11 NG/ML Low 11.0-307 Vitamin B12 358 pg/mL 180-914 Folic Acid 19.4 NG/ML High 2-16 Laboratory test 07/01/2010 [facility] Hemoglobin A1c 4.8 % 4.1-5.7 finding (607)- - (Fma/[facility],CX) Vitamin D, 25 12/05/2009 [facility] 25-Hydroxy Vitamin 25 ng/mL () Hydroxy D2 25-Hydroxy Vitamin D3 34 ng/mL () 25-Hydroxy Vitamin D Total 59 ng/mL () 34 CBC With Electronic Diff 09/05/2009 [facility] White Blood Count 3.8 CUMM Low 4.8-10.8 Red Cell Count 4.65 CUMM 4.2-5.4 Hemoglobin [...] Basophils 0 0-0.2 Laboratory test finding 09/05/2009 [facility] Vitamin A (Retinol) 746 g/L 325 -780 35 Comp Metabolic Panel 09/05/2009 [facility] Sodium 137 mmol/L 135-145 Potassium 4.0 mmol/L 3.5-5.0 Chloride 104 mmol/L 101-111 Co2 (Carbon Dioxide) 25.0 mmol/L 22-32 Anion Gap 8.0 mmol/L 2-11 36 Glucose 82 mg/dL 70-100 37 BUN 11 mg/dL 6-24 Creatinine 0.58 mg/dL 0.50-1.40 One Over Creatinine 1.70 BUN/Creatinine Ratio 19.0 8-20 Calcium 8.8 mg/dL 8.1-9.9 38 Total Protein 6.4 GM/DL 6.2-8.1 Albumin 3.5 GM/DL Low 3.6-5.4 Globulin 2.9 GM/DL 2-4 Albumin/Globulin Ratio 1.2 1-3 Bilirubin Total 0.5 mg/dL 0.4-1.5 39 Alkaline Phosphatase 64 U/L 30-110 Alt (SGPT) 20 U/L 14-54 Ast (Sgot) 27 U/L 12-42 eGFR Non- 115.6 > 60 eGFR 139.9 > 60 40 Tibc 09/05/2009 [facility] Iron Total 57 g/dL 28-170 Unsaturated Iron Binding 366 g/dL Total Iron Binding Capacity 424 g/dL 250-450 % Iron Saturation 14 % Low 15-55 Vitamin D, 25 Hydroxy 09/05/2009 [facility] 25-Hydroxy Vitamin D2 5.8 ng/mL () 25-Hydroxy Vitamin D3 35 ng/mL () 25-Hydroxy Vitamin D Total 41 ng/mL () 41 Laboratory test finding 09/05/2009 [facility] Ferritin < 10 NG/ML Low 11.0-307 Vitamin B12 441 pg/mL 180-914 Folic Acid > 20.0 NG/ML High 2-16 Laboratory test finding 09/29/2008 [facility] Vitamin A (Retinol) 394 g/L 325 -780 42 Vitamin D, 25 Hydroxy 09/29/2008 [facility] 25-Hydroxy Vitamin D2 8.2 ng/mL () 25-Hydroxy Vitamin D3 21 ng/mL () 25-Hydroxy Vitamin D Total 29 ng/mL () 43 CBC With Electronic Diff 09/29/2008 [facility] White Blood Count 6.9 CUMM 4.8- 10.8 Red Cell Count 4.76 CUMM 4.2-5.4 Hemoglobin [...] Basophils 0 0-0.2 Comp Metabolic Panel 09/29/2008 [facility] Sodium 141 mmol/L 135-145 Potassium 4.3 mmol/L 3.5-5.0 Chloride 107 mmol/L 101-111 Co2 (Carbon Dioxide) 28.0 mmol/L 22-32 Anion Gap 6.0 mmol/L 2-11 44 Glucose 84 mg/dL 70-100 45 BUN 10 mg/dL 6-24 Creatinine 0.60 mg/dL 0.50-1.40 One Over Creatinine 1.60 BUN/Creatinine Ratio 16.7 8-20 Calcium 9.1 mg/dL 8.1-9.9 46 Total Protein 6.3 GM/DL 6.2-8.1 Albumin 3.2 GM/DL Low 3.6-5.4 Globulin 3.1 GM/DL 2-4 Albumin/Globulin Ratio 1.0 1-3 Bilirubin Total 0.5 mg/dL 0.4-1.5 Alkaline Phosphatase 82 U/L 30-110 Alt (SGPT) 21 U/L 14-54 Ast (Sgot) 21 U/L 12-42 Laboratory test finding 09/29/2008 [facility] Vitamin B12 551 pg/mL 180-914 Folic Acid > 20.0 NG/ML High 2-16 Tibc 09/29/2008 [facility] Iron Total 66 g/dL 28-170 Unsaturated Iron Binding 403 g/dL Total Iron Binding Capacity 469 g/dL High 250-450 % Iron Saturation 14 % Low 15-55 Laboratory test 05/22/2008 [facility] Hemoglobin A1c 5.3 % 4.1-5.7 finding (607)- - (Fma/[facility],CX) Vitamin D, 25 09/24/2007 [facility] 25-Hydroxy Vitamin <4.0 ng/mL () Hydroxy D2 25-Hydroxy Vitamin D3 33 ng/mL () 25-Hydroxy Vitamin D Total 33 ng/mL () 47 Laboratory test finding 09/24/2007 [facility] Free Retinol 660 ug/L 360-1200 48 CBC With Electronic Diff 09/24/2007 [facility] White Blood Count 5.2 CUMM 4.8- 10.8 Abs Basophils 0 0-0.2 Abs Eosinophils 0.1 [...] 14 % 10.5-15 Comp Metabolic Panel 09/24/2007 [facility] One Over Creatinine 1.25 Anion Gap 6.0 mmol/L 2-11 49 Albumin/Globulin Ratio 1.1 1-3 Albumin 3.5 GM/DL [...] 8-20 Creatinine 0.8 mg/dL 0.5-1.4 Tibc 09/24/2007 [facility] Iron Total 118 g/dL 28-170 Unsaturated Iron Binding 302 g/dL Total Iron Binding Capacity 420 g/dL 250-450 % Iron Saturation 28 % 15-55 Laboratory test finding 09/24/2007 [facility] Vitamin B12 342 pg/mL 180-914 Folic Acid > 20.0 NG/ML High 2-16 CBC With Electronic Diff 04/23/2007 [facility] White Blood Count 5.1 CUMM 4.8- 10.8 Abs Basophils 0 0-0.2 Abs Eosinophils 0.2 [...] 15 % 10.5-15 Laboratory test finding 04/23/2007 [facility] Vitamin B12 458 pg/mL 180-914 Hemoglobin A1c 5.4 % <6.0 50 Comp Metabolic Panel 04/23/2007 [facility] One Over Creatinine 1.42 Anion Gap 5.0 mmol/L 2-11 51 Albumin/Globulin Ratio 1.2 1-3 Albumin 3.4 GM/DL [...] Creatinine 0.7 mg/dL 0.5-1.4 Lipid Profile 04/23/2007 [facility] Cholesterol/HDL Ratio 2.64 AVERAGE 1-4.44 (Trig/Chol/HDL) Cholesterol 156 mg/dL Less Than 200 52 Triglyceride 72 mg/dL 40-200 High Density Lipoprotein 59 mg/dL 40-60 Low Density Lipoprotein 83 mg/dL Less Than 100 53 Laboratory test finding 04/23/2007 [facility] TSH 1.30 MIU/ML 0.34-5.60 Comprehensive Metabolic 05/20/2006 [facility] Glucose 73 mg/dL 70-100 54 [address] [place], [place] [id number] [phone] BUN 15 mg/dL 4-18 Sodium 140 mmol/L 136-146 Potassium 4.4 mmol/L 3.5-5.3 Chloride 107 mmol/L 98-110 Carbon Dioxide 21 mmol/L 20-32 Albumin 3.9 g/dL 3.5-4.7 Protein, Total 6.8 g/dL 6.4-8.2 Calcium 9.2 mg/dL 8.4-10.4 Alkaline Phosphatase 87 U/L 10-118 Sgot (Ast) 23 U/L 3-30 SGPT (Alt) 21 U/L 7-40 Bilirubin, Total 0.30 mg/dL 0.30-1.20 Creatinine, Serum 0.9 mg/dL 0.5-1.2 CBC 05/20/2006 [facility] WBC 5.8 x103 4.3-10.9 [address] [place] [address] [phone] RBC 4.62 x106 3.80-5.30 Hemoglobin 12.6 g/dL 11.8-15.8 Hematocrit 37.4 % 35.0-47.0 MCV 80.9 fl Low 82.0-98.0 MCH 27.3 pg Low 27.5-33.5 MCHC 33.7 g/dL 32.0-36.0 RDW 15.7 % High 11.5-14.5 Platelet Count 224 x103 130-400 MPV 8.7 fl 6.5-10.5 Segmented Neutrophils 47.6 % 44.0-74.0 Lymphocytes 41.9 % 15.0-45.0 Monocytes 7.2 % 2.0-13.0 Eosinophils 2.8 % 0.0-6.0 Basophils 0.5 % 0.0-2.0 Neutrophil Absolute 2.8 x103 1.4-7.0 Lymphocytes Absolute 2.4 x103 1.0-3.4 Monocyte Absolute 0.4 x103 0.2-1.0 Eosinophil Absolute 0.2 x103 0.0-0.5 Basophil Absolute 0.0 x103 0.0-0.2 Anisocytosis 1+ AB Laboratory test finding 05/20/2006 [facility] Hemoglobin A1c 5.4 % 55 [address] [place] [address] [phone] TSH (Thyrotropin) 1.320 uIU/ml 0.350-5.500 Vitamin B-12 433 pg/mL 56 Folic Acid(Folate)Serum >24.0 ng/ml 57 GFR (Calculated) >60 58 Laboratory test 10/10/2005 [facility] Hemoglobin A1c 4.7 % 4.1-5.7 finding (607)- - (F/C/CTX) CBC 01/16/2005 [facility] WBC 6.2 x103 4.3-10.9 [address] [place] [address] [phone] RBC 4.95 x106 3.80-5.30 Hemoglobin 14.6 g/dL [...] 0.0 x103 0.0-0.2 Laboratory test finding 01/16/2005 [facility] Iron 86 g/dL 30-[address] [place] [phone] Vitamin B-12 784 pg/mL 59 Laboratory test 11/12/2004 [facility] Sedimentation Rate 7 MM/HR 0-20 finding [address] [place] [address] [phone] Uric Acid 6.2 mg/dL 2.7-8.4 Antinuclear AB (Esme) NEGATIVE Negative 60 Comprehensive 07/02/2004 [facility] Glucose 86 mg/dL 61.0 - 110.0 Metabolic [address] [place] [address] [phone] BUN 10 mg/dL 4.0 - 18.0 Creatinine, [...] mg/dL 0.3 - 1.2 Lipid Profile 07/02/2004 [facility] Triglycerides 70 mg/dL 61 [address] [place] [address] [phone] Cholesterol, Total 123 mg/dL 120.0 - 200.0 62 HDL Cholesterol 42 mg/dL 40.0 - 60.0 LDL Cholesterol, Calc. 67 mg/dL <130 63 LDL/HDL Cholesterol 1.6 64 Chol/HDL Cholesterol 2.9 65 CBC 07/02/2004 [facility] WBC 6.1 x10*3 4.3 - 10.9 [address] [place] [address] [phone] RBC 4.92 x10*6 3.8 - 5.3 Hemoglobin [...] 0.0 - 0.2 Laboratory test finding 07/02/2004 [facility] Hemoglobin A1c 4.9 % 66 [address] [place] [address] [phone] Thyrotropin (TSH) 0.980 uIU/ml 0.35 - 5.5 Calcium,Ionized,Serum 5.5 mg/dL 4.5 - 5.6 Vitamin B-12 1011 pg/mL 67 Folic Acid(Folate)Serum >24.0 ng/ml 68 Iron/Tibc,%Sat Group 07/02/2004 [facility] Iron 100 g/dL 30.0 - 158.0 [address] [place], [place] [phone] Total Iron Binding Cap. 323 g/dL 250.0 - 450.0 % Iron Saturation 30.8 % 13.0 - 45.0 Laboratory test 07/02/2004 [facility] GFR (Calculated) >60 69 finding [address] [place] [address] [phone] Comprehensive 03/22/2003 [facility] Glucose 129 High 61.0 Metabolic 28 [facility] mg/[place] [address] [phone] BUN 13 mg/dL 4.0 - 18.0 Creatinine, Serum 0.7 mg/dL 0.5 - 1.2 Sodium 140 mmol/L 136.0 - 145.0 Potassium 4.3 mmol/L 3.5 - 5.3 70 Chloride 109 mmol/L High 98.0 - 107.0 [...] mg/dL 0.2 - 1.3 Lipid Profile 03/22/2003 [facility] Triglycerides 203 mg/dL 37.0 - 28 [facility] [address] [place] [address] [phone] Cholesterol, Total 203 mg/dL High 120.0 - 200.0 71 HDL Cholesterol 45 mg/dL 40.0 - 60.0 LDL Cholesterol, Calc. 117 mg/dL <130 72 LDL/HDL Cholesterol 2.6 73 Chol/HDL Cholesterol 4.5 74 Laboratory test 03/22/2003 [facility] Hemoglobin A1c 5.6 % 75 finding [address] [place] [address] [phone] Glucose/Hgaic 09/13/2002 [facility] Glucose, Serum 90 mg/dL 70 - 105 Profile (Fma/CMC (607)- - (Fma/CMC/CTX) Hemoglobin A1c (F/C/CTX) 5.5 % 4.1-5.7 Laboratory test finding 03/31/2002 [facility] Hemoglobin A1c 5.9 % 76 [address] [place] [address] [phone] Glucose 98 mg/dL 61.0 - 112.0 Lipid Profile 12/21/2001 [facility] Triglycerides 233 mg/dL 37.0 - 28 [facility] [address] [place] [address] [phone] Cholesterol, Total 191 mg/dL 120.0 - 200.0 77 HDL Cholesterol 46 mg/dL 35.0 - 9999.0 LDL Cholesterol 98 mg/dL <130 78 LDL/HDL Cholesterol 2.1 79 Chol/HDL Cholesterol 4.2 80 Hepatic (Liver) 12/21/2001 [facility] Albumin 3.2 g/dL Low 3.6 - 4.5 Panel [address] [place] [address] [phone] Protein, Total 6.8 g/dL 6.2 - 8.0 Alkaline Phosphatase 88 U/L 42.0 - 127.0 Sgot (Ast) 20 U/L 9.0 - 37.0 SGPT (Alt) 22 U/L 7.0 - 42.0 Bilirubin, Total 0.40 mg/dL 0.2 - 1.3 Bilirubin, Direct 0.20 mg/dL 0.0 - 0.6 Bilirubin, Indirect 0.20 mg/dL 0.1 - 1.1 Comprehens.+ 05/17/2001 [facility] Glucose 102 mg/dL 61.0 - 112.0 Hepatic [address] [place] [address] [phone] BUN 12 mg/dL 4.0 - 18.0 Creatinine, Serum SEE BELOW Sodium 142 mmol/L 136.0 - 145.0 Potassium 4.5 mmol/L 3.4 - 5.0 Chloride 106 mmol/L 98.0 - 107.0 Carbon Dioxide 26 mmol/L 23.0 - 33.0 Albumin 3.3 g/dL Low 3.6 - 4.5 Calcium 8.9 mg/dL 8.4 - 10.2 81 Alkaline Phosphatase 100 U/L 42.0 - 127.0 Sgot (Ast) 18 U/L 9.0 - 37.0 SGPT (Alt) 15 U/L 7.0 - 42.0 Bilirubin, Total 0.30 mg/dL 0.2 - 1.3 Bilirubin, Direct 0.20 mg/dL 0.0 - 0.6 Bilirubin, Indirect 0.10 mg/dL 0.1 - 1.1 Creatinine, Serum 0.7 mg/dL 0.5 - 1.2 Protein, Total 7.6 g/dL 6.2 - 8.0 Lipid Profile 05/17/2001 [facility] Triglycerides 269 mg/dL High 37.0 - 28 [facility] [address] [place] [address] [phone] Cholesterol, Total 240 mg/dL High 120.0 - 200.0 82 HDL Cholesterol 46 mg/dL 35.0 - 9999.0 LDL Cholesterol 140 mg/dL AB <130 83 LDL/HDL Cholesterol 3.0 84 Chol/HDL Cholesterol 5.2 AB 85 Laboratory test 05/17/2001 [facility] Hemoglobin A1c 5.7 % 86 finding [address] [place] [address] [phone] Laboratory test 09/08/2000 [facility] Hemoglobin A1c 6.3 % AB Detail 87 finding [address] [place] [address] [phone] Hepatic (Liver) 09/08/2000 [facility] Albumin 3.7 g/dL 3.6 - 4.5 Panel [address] [place] [address] [phone] Protein, Total 7.1 g/dL 6.2 - 8.0 Alkaline Phosphatase 94 U/L 42.0 - 127.0 Sgot (Ast) 24 U/L 9.0 - 37.0 SGPT (Alt) 34 U/L 7.0 - 42.0 Bilirubin, Total 0.30 mg/dL 0.2 - 1.3 Bilirubin, Direct 0.30 mg/dL 0.0 - 0.6 Bilirubin, Indirect 0.00 mg/dL Low 0.1 - 1.1 Liver Profile-[facility] 06/17/2000 [facility] Albumin 3.7 g/dL 3.6-4.5 [address] [place], [place] [id number] [phone] Total Protein 7.2 g/dL 6.2-8.0 Alkaline Phosphatase 90 U/L 42-127 Ast (Sgot) 20 U/L 9-37 Alt (SGPT) 40 U/L 7-42 Bilirubin, Total 0.50 mg/dL 0.2-1.30 Bilirubin, Direct 0.40 mg/dL 0.00-0.60 Bilirubin, Indirect 0.10 mg/dL 0.10-1.10 Liver Function (Fma) 03/14/2000 [facility] Albumin 4.0 GM/DL 3.80 - 5.50 (607)- - Alkaline Phosphatase 94 U/L 39-130 Bilirubin, Direct 0.0 mg/dL 0-0.6 Bilirubin, Total 0.2 mg/dL 0.2-1.3 Ast (Sgot) 24 U/L 9-44 Alt (SGPT) 34 U/L 10-40 Total Protein 8.0 g/dL 6.3-8.1 Bilirubin, Indirect 0.20 ml/dl 0.10-1.0 Laboratory test 03/14/2000 [facility] Hemoglobin A1c 5.5 % 4.1-5.7 finding (607)- - Liver 12/12/1999 [facility] Albumin 3.8 g/dL 3.6-4.5 Profile-[facility] [address] [place] [address] [phone] Alkaline Phosphatase 88 U/L 42-127 Ast (Sgot) 23 U/L 9-37 Alt (SGPT) 27 U/L 7-42 Total Bilirubin 0.40 mg/dL 0.2-1.3 Bilirubin, Direct 0.30 mg/dL 0.00-0.60 Bilirubin, Indirect 0.10 mg/dL 0.10-1.10 Laboratory test 12/12/1999 [facility] Total Protein 7.2 g/dL 6.2-8.0 finding [address] [place] [address] [phone] 1 *Ascorbic acid is present which may [...] [address]: Netta Gilbert MD Acct: [id number] Unit: [id number] AGE: 63 Location: [facility] Re08/20/18 SEX: F Status: REG REF SPEC: [id number] GEOR[place]ES: 08/20/18-[address]: Netta Gilbert MD REQ: [id number] RECD: 08/20/18 STATUS: PASCUAL HERNANDEZ DR: Tram Jolly MD _ SOURCE: URINE [facility]: ORDERED: Urine Culture QUERIES: Urine Source: Clean Catch Procedure Result Reported Site Urine Culture Final 08/21/18- 1217 ML No Growth (<1,000 CFU/mL) * ML - Main Lab . END OF REPORT DEPARTMENT OF PATHOLOGY, [address] [place] [address] Johnathon Nixon M.D. Director [facility] # [id number] 1 sst 5 Vitamin D deficiency has been defined by the [place] [employer] and an Endocrine Society practice guideline as a level of serum 25-OH vitamin D less than 20 ng/mL (1,2). The Endocrine Society went on to further define vitamin D insufficiency as a level between 21 and 29 ng/mL (2). 1. IOM ([place] [employer]). 2010. Dietary reference intakes for calcium and D. [place]: The National Academies Press. 2. Holick MF, Lane NC, Juan Diego ROMANO, et al. Evaluation, treatment, and prevention of vitamin D deficiency: an Endocrine Society clinical practice guideline. JCEM. 2010; 96(7):1911-30. 6 SRC:urine cc 1 miller top 7 Source of Specimen: urine cc 1 miller top 8 Source of Specimen: urine cc 1 miller top 9 2 sst 10 According to ATP-III Guidelines, HDL-C >59 mg/dL is considered a negative risk factor for CHD. 11 Vitamin D deficiency has been defined by the [place] [employer] and an Endocrine Society practice guideline as a level of serum 25-OH vitamin D less than 20 ng/mL (1,2). The Endocrine Society went on to further define vitamin D insufficiency as a level between 21 and 29 ng/mL (2). 1. IOM ([place] [employer]). 2010. Dietary reference intakes for calcium and D. [place]: The [employer]. 2. Arcenio THOMAS, Lane TEJEDA, Juan Diego ROMANO, et al. Evaluation, treatment, and prevention of vitamin D deficiency: an Endocrine Society clinical practice guideline. JCEM. 2010; 96(7):1911-30. 12 FASTING; 1SST 13 CHOL/HDL Risk Ratio Levels MALE FEMALE 1/2 X Average 3.4 3.3 Average 5.0 4.4 2 X Average 9.5 7.0 3 X Average 24.0 11.0 14 Optimal under 100 mg/dl Near or above Optimal 100 - 129 mg/dl Borderline High 130 - 159 mg/dl High 160 - 189 mg/dl Very High above 190 mg/dl 15 LDL/HDL Risk Ratio Levels MALE FEMALE 1/2 X Average 1.0 1.5 Average 3.6 3.2 2 X Average 6.3 5.0 3 X Average 8.0 6.1 16 >59 mL/min/1.73m2 17 >59 mL/min/1.73m2 Note: Persistent reduction for 3 months or more in an eGFR <60 mL/min/1.73m2 defines CKD. Patients with eGFR values >=60 mL/min/1.73m2 may also have CKD if evidence of persistent proteinuria is present. Additional information may be found at [email or web address]/professionals/kdoqi. 18 FASTING; 2 sst 1 lav 19 >59 mL/min/1.73m2 20 >59 mL/min/1.73m2 Note: Persistent reduction for 3 months or more in an eGFR <60 mL/min/1.73m2 defines CKD. Patients with eGFR values >=60 mL/min/1.73m2 may also have CKD if evidence of persistent proteinuria is present. Additional information may be found at [email or web address]/professionals/kdoqi. 21 CHOL/HDL Risk Ratio Levels MALE FEMALE 1/2 X Average 3.4 3.3 Average 5.0 4.4 2 X Average 9.5 7.0 3 X Average 24.0 11.0 22 Optimal under 100 mg/dl Near or above Optimal 100 - 129 mg/dl Borderline High 130 - 159 mg/dl High 160 - 189 mg/dl Very High above 190 mg/dl 23 LDL/HDL Risk Ratio Levels MALE FEMALE 1/2 X Average 1.0 1.5 Average 3.6 3.2 2 X Average 6.3 5.0 3 X Average 8.0 6.1 24 Greater than or equal to 5.4 is normal. . 25 Greater than or equal to 211 is normal. . 26 Vitamin D deficiency has been defined by the [place] [employer] and an Endocrine Society practice guideline as a level of serum 25-OH vitamin D less than 20 ng/mL (1,2). The Endocrine Society went on to further define vitamin D insufficiency as a level between 21 and 29 ng/mL (2). 1. IOM ([place] [employer]). 2010. Dietary reference intakes for calcium and D. [place]: The National Academies Press. 2. Arcenio MF, Lane [place], Juan Diego ROMANO, et al. Evaluation, treatment, and prevention of vitamin D deficiency: an Endocrine Society clinical practice guideline. JCEM. 2010; 96(7):1911-30. 27 Test Performed by: [facility] [address], [place] [address] Lead Handler: Sara Alvarez, Ph.D. 28 -- REFERENCE VALUE -- 25-HYDROXY D TOTAL (D2+D3) Optimum levels in the normal population are 25-80 Test Performed by: [facility] [address] [place] [address] Lead Handler: Sadi Anderson III, M.D. 29 Anion gap measurement may be of limited value in the presence of any alkalosis, especially in a combined acid base disorder. . 30 A metabolite of Naproxen, O-desmethylnaproxen, has been shown to interfere with the Jendrassik-Chelle method for measuring total bilirubin. Samples from patients who have taken Naproxen have shown spurious elevation in total bilirubin levels. 31 Because ethnic data is not always readily [...] 15-29 5 Kidney failure <15 (or dialysis) 32 Neutropenia noted. CBC AND SMEAR REVIEWED BY JOHNATHON NIXON MD 33 Neutropenia % Lymphocytosis % 34 -- REFERENCE VALUE -- 25-HYDROXY D TOTAL (D2+D3) Optimum levels in the normal population are 25-80 Test Performed by: [facility] [address] [place] [address] Lead Handler: Sadi Anderson III, M.D. 35 Test Performed by: [facility] [address] [place] [address] Lead Handler: Sadi Anderson III, M.D. 36 Anion gap measurement may be of limited value in the presence of any alkalosis, especially in a combined acid base disorder. . 37 Note change in reference range as of 04/06/08. The change was based on recommendations from the [place] [employer]. 38 Please note change in reference range effective 08 . 39 A metabolite of Naproxen, O-desmethylnaproxen, has been shown to interfere with the Jendrassik-Chelle method for measuring total bilirubin. Samples from patients who have taken Naproxen have shown spurious elevation in total bilirubin levels. 40 Because ethnic data is not always readily [...] 15-29 5 Kidney failure <15 (or dialysis) 41 -- REFERENCE VALUE -- 25-HYDROXY D TOTAL (D2+D3) Optimum levels in the normal population are 25-80 Test Performed by: [facility] [address] [place] [address] Lead Handler: Sadi Anderson III, M.D. 42 Test Performed by: [facility] [address] [place] [address] Lead Handler: Sadi Anderson III, M.D. 43 -- REFERENCE VALUE -- 25-HYDROXY D TOTAL (D2+D3) Optimum levels in the normal population are 25-80 Test Performed by: [facility] [address] [place] [address] Lead Handler: Sadi Anderson III, M.D. 44 Anion gap measurement may be of limited value in the presence of any alkalosis, especially in a combined acid base disorder. . 45 Note change in reference range as of 04/06/08. The change was based on recommendations from the [place] [employer]. 46 Please note change in reference range effective 08 . 47 -- REFERENCE VALUE -- 25-HYDROXY D TOTAL (D2+D3) Optimum levels in the normal population are 25-80 Test Performed by: [facility] [address] [place] [address] Lead Handler: Sadi Anderson III, M.D. 48 Specimen received unprotected from light. Interpret results with caution. Test Performed by: [facility] [address] [place] [id number] Lead Handler: Sadi Anderson III, M.D. 49 Anion gap measurement may be of limited value in the presence of any alkalosis, especially in a combined acid base disorder. . 50 THERAPEUTIC TARGET FOR THE TREATMENT OF DIABETES MELLITUS PATIENTS IS <7% HBA1C, AND IN SELECTIVE PATIENTS <6.0%. PLEASE REFER TO [employer] DIABETIC CARE GUIDELINES FOR FURTHER INFORMATION. 51 Anion gap measurement may be of limited value in the presence of any alkalosis, especially in a combined acid base disorder. . 52 Classification: Desirable . 53 CALCULATED LDL APPROXIMATES THE VALUE OF A DIRECT LDL MEASUREMENT. Classification: Optimal Level . 54 1 LAV; 1 SST TUBE; 1 POUR OFF RED TOP 55 HGBA1C (%) GLUCOSE CONTROL >8 Action Suggested 7-8 Good Control <7 Goal 6-7 Near Normal Glycem <6 Non-diabetic Level . 56 Greater than or equal to 211 is normal. . 57 Greater than or equal to 5.4 is normal. . 58 mL/min/1.73m2 . Normal Function or Mild Renal [...] that are excreted by the kidneys. . 59 Greater than or equal to 211 is normal. . 60 (Performed by Enzyme Immunoassay, EIA) 61 Triglyceride Risk Levels: Normal : <150 mg/dl Borderline : 150-199 mg/dl High : 200-499 mg/dl Very High : >500 mg/dl . 62 Cholesterol Risk Levels (NIH) Recommended: under 200 mg/dl Borderline : 200-239 mg/dl High Risk : Above 240 mg/dl . 63 The National Cholesterol Education Program recommends the following ranges for LDL Cholesterol: Optimal under 100 mg/dl Near or above Optimal 100 - 129 mg/dl Borderline High 130 - 159 mg/dl High 160 - 189 mg/dl Very High above 190 mg/dl . 64 LDL/HDL Risk Ratio Levels MALE FEMALE 1/2 X Average 1.00 1.47 Average 3.55 3.22 2 X Average 6.25 5.03 3 X Average 7.99 6.14 . 65 CHOL/HDL Risk Ratio Levels MALE FEMALE 1/2 X Average 3.4 3.3 Average 5.0 4.4 2 X Average 9.5 7.0 3 X Average 24.0 11.0 . 66 HGBA1C (%) GLUCOSE CONTROL >8 Action Suggested 7-8 Good Control <7 Goal 6-7 Near Normal Glycem <6 Non-diabetic Level . 67 Greater than or equal to 211 is normal. . 68 Greater than or equal to 5.4 is normal. . 69 . Normal Function or Mild Renal Disease, [...] that are excreted by the kidneys. . 70 Effective December 08, 2002 please note change in reference range. 71 Cholesterol Risk Levels (NIH) Recommended: under 200 mg/dl Borderline : 200-239 mg/dl High Risk : Above 240 mg/dl . 72 LDL Cholesterol Risk Levels (NIH) Recommended: under 130 mg/dl Borderline: 131 - 159 mg/dl High Risk: above 160 mg/dl . 73 LDL/HDL Risk Ratio Levels MALE FEMALE 1/2 X Average 1.00 1.47 Average 3.55 3.22 2 X Average 6.25 5.03 3 X Average 7.99 6.14 . 74 CHOL/HDL Risk Ratio Levels MALE FEMALE 1/2 X Average 3.4 3.3 Average 5.0 4.4 2 X Average 9.5 7.0 3 X Average 24.0 11.0 . 75 HGBA1C (%) GLUCOSE CONTROL >8 Action Suggested 7-8 Good Control <7 Goal 6-7 Near Normal Glycem <6 Non-diabetic Level . 76 HGBA1C (%) GLUCOSE CONTROL >8 Action Suggested 7-8 Good Control <7 Goal 6-7 Near Normal Glycem <6 Non-diabetic Level . 77 Cholesterol Risk Levels (NIH) Recommended: under 200 mg/dl Borderline : 200-239 mg/dl High Risk : Above 240 mg/dl . 78 LDL Cholesterol Risk Levels (NIH) Recommended: under 130 mg/dl Borderline: 131 - 159 mg/dl High Risk: above 160 mg/dl . 79 LDL/HDL Risk Ratio Levels MALE FEMALE 1/2 X Average 1.00 1.47 Average 3.55 3.22 2 X Average 6.25 5.03 3 X Average 7.99 6.14 . 80 CHOL/HDL Risk Ratio Levels MALE FEMALE 1/2 X Average 3.4 3.3 Average 5.0 4.4 2 X Average 9.5 7.0 3 X Average 24.0 11.0 . 81 Effective December Please Note CHANGE IN REFERENCE RANGE. . 82 Cholesterol Risk Levels (NIH) Recommended: under 200 mg/dl Borderline : 200-239 mg/dl High Risk : Above 240 mg/dl . 83 LDL Cholesterol Risk Levels (NIH) Recommended: under 130 mg/dl Borderline: 131 - 159 mg/dl High Risk: above 160 mg/dl . 84 LDL/HDL Risk Ratio Levels MALE FEMALE 1/2 X Average 1.00 1.47 Average 3.55 3.22 2 X Average 6.25 5.03 3 X Average 7.99 6.14 . 85 CHOL/HDL Risk Ratio Levels MALE FEMALE 1/2 X Average 3.4 3.3 Average 5.0 4.4 2 X Average 9.5 7.0 3 X Average 24.0 11.0 . 86 HGBA1C (%) GLUCOSE CONTROL >8 Action Suggested 7-8 Good Control <7 Goal 6-7 Near Normal Glycem <6 Non-diabetic Level . 87 GLUCOSE CONTROL: > 8 ACTION SUGGESTED 7-8 GOOD CONTROL <7 GOAL 6-7 NEAR NORMAL GLYCEM <6 NON DIABETIC LEVEL HGBA1C (%) GLUCOSE CONTROL >8 Action Suggested 7-8 Good Control <7 Goal 6-7 Near Normal Glycem <6 Non-diabetic Level . Procedures Date Code Description Status 02/09/2018 [id number] Mammogram Completed 08/17/2017 [id number] Diabetic Retinal Eye Exam Completed 06/26/2017 [id number] Colonoscopy Completed 02/04/2017 [id number] Mammogram Completed 02/04/2016 [id number] Mammogram Completed 10/10/2011 [id number] Mammogram Completed 07/01/2010 [id number] Finger Or Heel Stick Completed 06/28/2010 [id number] Mammogram Completed 06/22/2009 [id number] Mammogram Completed 06/21/2008 [id number] Mammogram Completed 06/04/2007 [id number] Colonoscopy Completed 05/28/2007 [id number] Mammogram Completed 08/17/2006 [id number] Bone Mineral Density Test Completed 05/22/2006 [id number] Mammogram Completed 09/08/2000 [id number] Electrocardiogram Complete Completed Encounters Type Date Location Provider Dx Diagnosis Office Visit 10/22/2018 [facility] Office Tram Stanley F43.23 Adjustment disorder 9:40a Ana Jolly with mixed anxiety and depressed mood Office Visit 08/04/2018 Main Office Tram Stanley Z01.818 Encounter for other 2:40p Ana Jolly preprocedural examination M17.0 Bilateral primary osteoarthritis of knee M25.462 Effusion, left knee M25.562 Pain in left knee Office Visit 04/20/2018 2:40p Main Office Tram Jolly, E66.8 Other obesity MJesusDJesus K21.9 Gastro-esophageal reflux disease without esophagitis Office Visit 03/09/2018 10:40a Main Office Tram Stanley Z00.01 Encounter for Ana Jolly general adult medical exam w abnormal findings K21.9 Gastro-esophageal reflux disease without esophagitis E66.8 Other obesity M17.0 Bilateral primary osteoarthritis of knee F41.9 Anxiety disorder, unspecified F32.9 Major depressive disorder, single episode, unspecified Z82.49 Family hx of ischem heart dis and oth dis of the circ sys Office Visit 10/21/2017 2:40p Main Office Tram Stanley K21.9 Gastro- esophageal Ana Jolly reflux disease without esophagitis F43.21 Adjustment disorder with depressed mood E66.8 Other obesity M17.0 Bilateral primary osteoarthritis of knee Office Visit 08/13/2017 9:40a [facility] Tram Stanley F43.21 Adjustment Ana Jolly disorder with depressed mood K21.9 Gastro-esophageal reflux disease without esophagitis Office Visit 06/09/2017 9:40a Main Office Tram Stanley M17.0 Bilateral primary Ana Jolly osteoarthritis of knee F43.21 Adjustment disorder with depressed mood K21.9 Gastro-esophageal reflux disease without esophagitis E66.8 Other obesity Office Visit 02/03/2017 9:00a [facility] Tram Stanley Z00.00 Encntr iwona Jolly M.D. general adult medical exam w/o abnormal findings K44.9 Diaphragmatic hernia without obstruction or gangrene F43.22 Adjustment disorder with anxiety F43.21 Adjustment disorder with depressed mood E66.8 Other obesity M17.0 Bilateral primary osteoarthritis of knee E55.9 Vitamin D deficiency, unspecified Office Visit 11/27/2016 9:20a [facility] Tram Jolly M.D. R11.0 Nausea E66.8 Other obesity Office Visit 07/30/2016 3:00p Main Office Tram Stanley F43.21 Adjustment Ana Jolly disorder with depressed mood F43.22 Adjustment disorder with anxiety E66.8 Other obesity M17.9 Osteoarthritis of knee, unspecified Office Visit 07/14/2016 10:30a [facility] Nadine N39.0 Urinary tract [place], Afnp-C infection, site not specified Office Visit 03/03/2016 2:40p Main Office Tram Stanley E55.9 Vitamin D Ana Jolly deficiency, unspecified F43.21 Adjustment disorder with depressed mood F43.22 Adjustment disorder with anxiety M25.562 Pain in left knee Office Visit 01/31/2016 1:00p [facility] Tram Stanley Z00.00 Encntr for Ana Jolly general adult medical exam w/o abnormal findings Z12.31 Encntr screen mammogram for malignant neoplasm of breast E55.9 Vitamin D deficiency, unspecified F43.21 Adjustment disorder with depressed mood F43.22 Adjustment disorder with anxiety G47.33 Obstructive sleep apnea (adult) (pediatric) H35.31 Nonexudative age-related macular degeneration M25.562 Pain in left knee Z23 Encounter for immunization Office Visit 09/27/2012 2:10p Main Office Jose Kay 465.9 ZO Serrato M.D. Respiratory Infections Acute Unspec Sites 382.9 Otitis Media Unspec Office Visit 09/09/2012 9:00a [facility] Shannan Kirby, 300.00 Anxiety State [employer] Unspec 627.2 Menopausal Or Female Climacteric State, Symptomatic Office Visit 06/14/2012 4:00p Main Office Shannan Kirby 627.2 Menopausal Or [employer] Female Climacteric State, Symptomatic Office Visit 05/03/2012 1:15p Main Office Shannan Kirby 300.00 Anxiety State [employer] Unspec Office Visit 04/20/2012 1:30p Main Office Josiane Lock, 300.00 Anxiety State Afnp-C Unspec 311 Depressive Disorder Not Elsewhere Spec Office Visit 03/17/2012 2:40p [facility] Mariela Fallon 300.00 Anxiety State Ana Bradshaw Unspec 311 Depressive Disorder Not Elsewhere Spec Office Visit 12/25/2011 4:20p Main Office Mariela Fallon 300.00 Anxiety State Ana Bradshaw Unspec Office Visit 11/25/2011 4:00p Main Office Mariela Fallon 311 Depressive Ana Bradshaw Disorder Not Elsewhere Spec V45.86 Bariatric Surgery Status Office Visit 09/30/2011 4:40p Main Office Mariela Fallon 311 Depressive Disorder Ana Bradshaw Not Elsewhere Spec 727.43 Ganglion Unspec V45.86 Bariatric Surgery Status 278.00 Obesity Unspec Office Visit 07/01/2010 3:30p Main Office Rosibel noble 250.00 Diabetes Mellitus Ana Hillman W/O Compl Type II Or Unspec Controlled 719.46 Pain Joint Lower Leg 354.0 Carpal Tunnel Syndrome Office Visit 06/25/2009 5:40p Main Office Rosibel noble 311 Depressive Ana Hillman Disorder Not Elsewhere Spec Office Visit 04/26/2009 11:00a [facility] Rosibel noble 300.4 Dysthymic Ana Hillman Disorder Office Visit 05/22/2008 4:10p Main Office Rosibel noble 250.00 Diabetes Ana Hillman Mellitus W/O Compl Type II Or Unspec Controlled 401.9 Hypertension Unspec 274.9 Gout Unspec Office Visit 04/15/2007 4:10p Main Office Rosibel noble 250.00 Diabetes Petey Hillman M.D. W/O Compl Type II Or Unspec Controlled 274.9 Gout Unspec V45.89 Postsurgical Status Other 401.9 Hypertension Unspec 272.4 Hyperlipidemia Other Unspec Office Visit 05/13/2006 4:40p Main Office Rosibel noble 250.00 Diabetes Petey Hillman M.D. W/O Compl Type II Or Unspec Controlled 274.9 Gout Unspec V45.89 Postsurgical Status Other Office Visit 10/10/2005 1:20p [facility] Rosibel noble V72.83 Examination Office Ana Hillman Preoperative Other Spec V77.1 Screening Diabetes Mellitus Office Visit 01/01/2005 4:20p [facility] Rosibel noble 274.9 Gout Unspec Ana Hillman Office Visit 11/12/2004 4:00p Main Office Rosibel noble 274.9 Gout Unspec Ana Hillman Office Visit 10/08/2004 11:30a [facility] Josiane Lock, 274.9 Gout Unspec Afnp-C Office Visit 09/12/2004 4:20p Main Office Rosibel noble 274.9 Gout Unspec Ana Hillman Office Visit 06/20/2004 9:00a Main Office Rosibel noble 274.9 Gout Unspec Ana Hillman Office Visit 06/17/2004 4:20p Main Office Rosibel noble 250.00 Pipe Hillman M.D. Mellitus W/O Compl Type II Or Unspec Controlled V45.89 Postsurgical Status Other Office Visit 02/01/2004 4:00p Main Office Garry Villegas 250.00 Diabetes Petey Martinez M.D. W/O Compl Type II Or Unspec Controlled 278.00 Obesity Unspec Office Visit 10/24/2003 12:40p Main Office Garry Villegas 250.00 Diabetes Petey Martinez M.D. W/O Compl Type II Or Unspec Controlled 278.00 Obesity Unspec 716.90 Arthropathy Unspec Site Unspec Office Visit 09/26/2003 2:45p Main Office Josiane Lock, 274.9 Gout Unspec Afnp-C Office Visit 07/06/2003 4:00p Main Office Garry Martinez, 250.00 Diabetes Petey Perez W/O Compl Type II Or Unspec Controlled 078.10 Viral Warts Unspec Office Visit 02/28/2003 2:10p Main Office Garry Villegas 250.00 Diabetes Petey Martinez M.D. W/O Compl Type II Or Unspec Controlled 278.00 Obesity Unspec Office Visit 11/03/2002 9:00a [facility] Shannan Kirby, 466.0 Bronchitis Acute [employer] Office Visit 09/13/2002 11:40a Main Office Garry Villegas 250.00 Diabetes Petey Martinez M.D. W/O Compl Type II Or Unspec Controlled Office Visit 03/31/2002 4:00p Main Office Garry Martinez M.D. Office Visit 11/25/2001 4:00p Main Office Garry Martinez M.D. Office Visit 11/03/2001 2:10p Main Office Johnathon Topete M.D. Office Visit 07/29/2001 4:20p Main Office Garry Martinez M.D. Office Visit 04/29/2001 4:20p Main Office Garry Martinez M.D. Office Visit 12/18/2000 4:00p Main Office Garry Martinez M.D. Office Visit 09/08/2000 10:00a Main Office Garry Martinez M.D. Office Visit 06/17/2000 4:10p [facility] Garry Martinez M.D. Plan of Treatment Future Appointment(s):02/25/2019 2:40 pm - Tram Jolly M.D. at [facility] Gdhygy4511/16/2018 - Tram Jolly M.D.Z01.818 Encounter for other preprocedural examinationComments:You are cleared for R total knee replacement surgery if all the bloodwork and urine studies done in the hospital are normal. She had a low risk nuclear stress test in 03/2018.M17.0 Bilateral primary osteoarthritis of kneeM17.11 Unilateral primary osteoarthritis, right kneeF43.23 Adjustment disorder with mixed anxiety and depressed moodComments: continue the daily fluoxetine and klonopin for now. will re-evaluate the klonopin after you are recovered from surgery.K21.9 Gastro-esophageal reflux disease without esophagitisComments:continue daily ranitidine.AllComments: Medication Management Patient Understands medications she's taking? Yes No Are there Barriers to Adherence? Yes No Has the patient been asked about herbal supplements and therapies, and OTC meds? Yes No
--- OUTSIDE RECORDS SUMMARY | 2018-12-02 07:03 | XMS REPORT | Continuity of Care Document ---
:1955 External Reference #:[id number] Author Name Tram Jolly M.D. Address [address] [place] [address] Care Team Providers Name Role Phone Tram Jolly Care Team Information Home And Family Living Professor Unavailable Tram Jolly Primary Care Physician Unavailable Payers Date Identification Numbers Payment Provider Subscriber Effective: 2004 Policy Number: [id number] [place] Plan Mauro Chaudhary PayID: [id number] [address] [place] [address] Advance Directives Description No Information Available Problems [...] None : (1998) First Sister due to [place] at age 49 Social History Type Date Description Comments Sex Unknown Marital Status Patient is in 1996. Had reconnected and were going to live together. He 07/20/2014. Living Situation Patient lives alone Diet Sleep Reports continuity disturbances Occupation retired. worked for [employer] at [employer] with [facility] [address]. disabled adults Tobacco Use Start: Unknown Never [...] twice 60tabs Tram Stanley 0.5mg Tablets daily as needed Ana Jolly anxiety, insomnia Oxycontin 1/2 by mouth once Unknown 10mg Tab ER daily 12H Abuse-Det Pro-Optic 1 po qd Unknown Vitamin D once daily. Unknown 2000Unit Tablets Vitamin B12 1 by mouth every Unknown 1000mcg day Tablets ER Calcium 600 1po every other Unknown 600mg day Tablets History Medications Fluoxetine HCL 1 by mouth every 90caps Tram Stanley 07/09/2018 - 10mg morning Ana Jolly 10/22/2018 Capsules Fluoxetine HCL 1 by mouth every 90caps Tram Stanley 06/01/2018 - 20mg day Ana Jolly 07/09/2018 Capsules Omeprazole 1 by mouth every 90caps K21.9 Tram Stanley 03/09/2018 - 20mg day Ana Jolly 08/04/[address] Dave Hycarlosate 2 pills by mouth 2tabs Tram Stanley 06/16/2017 - at the same Ana Jolly 08/13/2017 100mg Tablets time. Fluoxetine HCL 1 by mouth every 30caps Tram Stanley 06/09/2017 - 20mg day Ana Jolly 10/21/2017 Capsules Omeprazole 1 by mouth every 30caps F43.21 Tram Stanley 06/09/2017 - 20mg day Ana Jolly 04/20/2018 Capsules Fluoxetine HCL 1 tab by mouth 30tabs Tram Stanley 06/09/2017 - 20mg every day. Ana Jolly 06/09/2017 Tablets Omeprazole 1 by mouth every 90caps F43.21 Tram Stanley 02/03/2017 - 40mg day Ana Jolly 06/09/[address] Cardoza inject subq Z00.01 Tram Stanley 02/03/2017 - Ana Jolly 02/16/2017 30014Njp/0.65ML Suspension Rec Bactrim DS 1 by mouth twice 10tabs N39.0 Nadine 07/14/2016 - 800-160mg a day Jan Haines 07/19/2016 Tablets Vitamin D take 1 capsule 8caps E55.9 Tram Stanley 03/03/2016 - (Ergocalciferol) by mouth once Ana Jolly 11/27/2016 weekly for 8 [id number] Capsules weeks. Amoxicillin bid x 7 days 14caps Jose Kay 09/27/2012 - 500mg Ana Serrato 01/31/2016 Capsules Prozac 1 po qd 90caps 300.00 Shannan Kirby 09/09/2012 - 20mg Capsules INVESTIGATION MANAGER 01/31/2016 Aviane 1 po qd 1pk 627.2 Shannan Mcculloughrer, 06/14/2012 - 0.1-20mg-mcg [facility] 01/31/2016 Tablets Prozac 1 po qd 180caps 300.00 Shannan Lear, 12/26/2011 - 40mg Capsules [facility] 01/31/2016 Klonopin 1 po bid prn 30tabs 300.00 Mariela Fallon 11/25/2011 - 0.5mg anxiety, caution Ana Bradshaw 09/27/2012 Tablets to sedation, avoid alcohol 311 Ciclopirox Nail apply once daily 1bottle Shannan Kofi, INVESTIGATION MANAGER 11/25/2011 - Lacquer 01/31/2016 8% Solution Penlac Nail Lacquer apply daily to [id number] Rosibel noble 09/23/2010 - 8% fungal nail Ana Hillman 09/30/2011 Solution infection Terbinafine HCL 1 po qd 30tabs Rosibel noble 07/01/2010 - 250mg Ana Hillman 09/23/2010 Tablets Note for medical Rosibel [facility] [place] 07/01/2010 - Weight Watchers reasons minerva Hillman M.D. 09/30/2011 weight loss goal is 175 pounds Prozac 2 po qd 360caps Shad Canela, 04/26/2009 - 20mg Umang Perez 12/26/2011 Calcium 2 po qd [facility] [...] qd Allopurinol 1 po qd 30units Rosibel noble 09/12/2004 - 300mg Ana Hillman 10/10/2005 Protonix 1 po qd 0units [facility] 10/24/2003 - 40mg [facility] 09/12/2004 Parkin Colchicine one po tid until 90units Rosibel noble 09/26/2003 - 0.6mg sx resolved or Ana Hillman 09/12/2004 diarrhea. Biaxin 1 PO bid 20tabs Shannan Kirby, INVESTIGATION MANAGER 11/03/2002 - 500mg Tabs 11/14/2002 Albuterol Inhaler 2 Puffq 3-4 HRS 1units Shannan Kirby, [facility] 11/03/2002 - prn 11/14/2002 [facility] 11/[facility]2001 - 25mg Cap Gout L Toe [facility] 02/28/2003 Parkin Biaxin 1TSP PO bid [facility] 11/03/2001 - 250mg/5cc [facility] 11/13/2001 Parkin Penlac Apply QHS One Garry Martinez, 12/18/2000 [...] Tablets Prozac 1 PO qd 90units Nadine Haines, 05/16/1998 - 20mg Afnp-C 06/17/2000 Amoxicillin 1 [...] qd [facility] 01/31/2016 Parkin Prozac 1 by mouth every 90caps Tram Jolly, - 40mg Capsules day M.D. 06/09/2017 Immunizations CPT Code Status Date Vaccine Lot # [id number] Given 02/03/2017 Zostivax [id number] Given 01/31/2016 Tdap Tetanus, W Pertussis [id number] Given 06/06/2013 DO Not Use Split Influenza Virus Vaccine [id number] Vital Signs Date Vital Result Comment 11/16/2018 [...] H/L Range Note CBC Auto Diff 08/20/2018 [facility] White Blood Count 6.7 10^3/uL N 3.5-10.8 [...] Red Blood Cells % 0.1 Inr/Protime 08/20/2018 [facility] Inr 0.86 N 0.77-1.02 Laboratory test finding 08/20/2018 [facility] Partial Thrombo 29.9 seconds N 26.0-36.3 Time PTT Urinalysis Profile 08/20/2018 [facility] Urine Color Yellow Urine Appearance Clear Urine Specific [place] 1.019 N 1.010-1.030 Urine pH 5.0 N [...] Present Abnormal Absent Comp Metabolic Panel 08/20/2018 [facility] Sodium 141 mmol/L N 135-145 Potassium 4.1 [...] 115.9 >60 2 Type & Screen 08/20/2018 [facility] Patient Blood Type A Positive Antibody Screen NEGATIVE Urine Culture And 08/20/2018 [facility] Urine Culture SEE RESULT 3 Sensitivities BELOW CBC Electronic Fma 03/23/2018 Vanessa Ricarda WBC 5.6 x10^3/UL 4.0-10. 0 RBC 4.76 x10^6/UL 3.93-6.00 HGB 13.8 g/dL 12.0-17.0 HCT 42 % 35-50 MCV 88.2 fL 80.0-95.0 MCH 29.0 pg 25.6-32.2 MCHC 32.9 g/dL 32.2-36.0 RDW-CV 13.8 % 11.6-14.4 PLT 212 x10^3/UL 163-400 MPV 9.9 fL 9.4-12.4 Peter# 2.57 x10^3/UL 1.56-6.13 Lymph# 2.36 x10^3/UL 1.18-3.74 Gates# 0.49 x10^3/UL 0.24-0.82 Eos # 0.1 x10^3/UL 0.0-0.5 Baso # 0.01 x10^3/UL 0.01-0.08 Peter% 46.0 % 34.0-70.0 Lymph % 42.3 % 20.0-52.0 Gates% 8.8 % 5.0-12.0 Eos% 2.5 % 0.7-7.0 [...] D, 42.3 ng/mL 30.0-100.0 4, [address] [place] [address] 25[place] [address] (607)- - Metabolic Panel 02/03/2017 [facility] Glucose, 96 mg/dL 65-99 (14), Comprehensive [address] [facility] [place] [address] (607)- - BUN 16 mg/dL 8-27 Creatinine, [...] 02/03/2017 [facility] WBC 6.1 x10E3/uL 3.4-10.8 Differential/Platelet [address] [place] [phone] (607)- - RBC 4.92 x10E6/uL 3.77-5.28 Hemoglobin [...] [facility] TSH 0.975 uIU/mL 0.450-4.500 finding [address] [place] [address] (308)- - Basic Metabolic 11/27/2016 [facility] Glucose, 91 mg/dL 65-99 Panel (8) [address] [place] [address] [place] [address] (643)- - BUN 14 mg/dL 8-27 Creatinine, Serum [...] Urine Culture, Final report 6, [address] [place] [address] [place] [address] (514)- - Result 1 No growth 8 Ua [...] Cholesterol, Total 157 mg/dL 100-199 9 [address] [place] [address] (607)- - Triglycerides 108 mg/dL 0-149 HDL Cholesterol 68 mg/dL >39 10 VLDL Cholesterol Aman 22 mg/dL 5-40 LDL Cholesterol Calc 67 mg/dL 0-99 Comment: TNP CBC With 02/28/2016 [facility] WBC 6.2 x10E3/uL 3.4-10.8 Differential/Platelet [address] [place] [address] (607)- - RBC 5.03 x10E6/uL 3.77-5.28 Hemoglobin [...] % Immature Grans (Abs) 0.0 x10E3/uL 0.0-0.1 [facility] Hematology Comments: [place] [facility] Metabolic Panel 02/28/2016 [facility] Glucose, Serum 101 mg/dL High 65-99 (14), Comprehensive [address] [place] [address] (606)- - BUN 13 mg/dL 6-24 Creatinine, Serum [...] Thyroxine (T4) 1.40 ng/dL 0.82-1.77 finding [address] [facility] Free, Direct, [place] [address] (606)- - TSH 2.040 uIU/mL 0.450-4.500 Vitamin D, 25-Hydroxy 25.4 ng/mL Low 30.0-100.0 11 Comprehensive 11/09/2012 [facility] Glucose 93 mg/dL 70-100 12 Metabolic [address] [place] [address] [phone] BUN 16 mg/dL 4-18 Creatinine, Serum 0.76 [...] [facility] Cholesterol, Total 138 mg/dL <200 [address] [place] [address] [phone] Triglycerides 79 mg/dL <150 HDL Cholesterol 54 mg/dL 40-60 Chol/HDL Cholesterol 2.6 13 LDL Cholesterol, Calc. 68 mg/dL 14 LDL/HDL Cholesterol 1.3 15 Egfr (Calculated) 11/09/2012 [facility] Estimated GFR (CALCULATED) [address] [place] [address] [phone] Egfr >60 16 Egfr, -Uzbek >60 17 CBC Electronic (Fma) 11/08/2012 Family [...] (Calculated) 11/06/2011 [facility] Estimated GFR (CALCULATED) 18 [address] [place] [address] [phone] Egfr >60 19 Egfr, -Uzbek >60 20 Iron/Tibc,%Sat Group 11/06/2011 [facility] Iron 69 g/dL 30-158 [address] [place] [address] [phone] Total Iron Binding Cap. 363 g/dL 250-450 % Iron Saturation 19.0 % 13.0-45.0 CBC 11/06/2011 [facility] WBC 4.3 x10E3/uL 4.3-10.9 [address] [place] [address] [phone] RBC 4.92 x10E6/uL 3.80-5.30 Hemoglobin 14.2 g/dL [...] 11/06/2011 [facility] Cholesterol, Total 160 mg/dL <200 [place] [address] [phone] Triglycerides 57 mg/dL <150 HDL Cholesterol 64 mg/dL High 40-60 Chol/HDL Cholesterol 2.5 21 LDL Cholesterol, Calc. 85 mg/dL 22 LDL/HDL Cholesterol 1.3 23 Comprehensive Metabolic 11/06/2011 [facility] Glucose 81 mg/dL 70-100 [address] [place] [address] [phone] BUN 18 mg/dL 4-18 Creatinine, Serum 0.71 [...] [address] Acid(Folate)Serum ng/[place] [address] [phone] Vitamin B-12 444 pg/mL 25 Vitamin D, 25 Oh 40.7 ng/mL 30.0-100.0 26 Magnesium 2.1 mg/dL 1.7-2.7 Phosphorous 4.0 mg/dL 2.8-4.7 Bilirubin, Direct 0.14 mg/dL 0.00-0.40 Laboratory test 10/09/2010 [facility] Vitamin A (Retinol) 70.0 g/dL 32.5- 78.0 27 finding Vitamin D, 25 Hydroxy 10/09/2010 [facility] 25-Hydroxy Vitamin D2 <4.0 ng/mL ( ) 25-Hydroxy Vitamin D3 52 ng/mL () 25-Hydroxy Vitamin D Total 52 ng/mL () 28 Comp Metabolic Panel 10/09/2010 [facility] Sodium 137 mmol/L 135-145 Potassium 3.9 mmol/L [...] 31 Iron & Iron Binding Capacity 10/09/2010 [facility] Iron Total 88 g/dL 28-170 Unsaturated Iron Binding 317 g/dL Total Iron Binding Capacity 405 g/dL 250-450 % Iron Saturation 22 % 15-55 Manual Differential 10/09/2010 [facility] Polysegmented Neutrophil 37 % Low 38- 83 Lymphocyte 48 % High 25-47 Monocyte 8 % 0-13 Eosinophil 6 % 0-6 Atypical Lymph 1 % 0-6 Absolute Neutrophil Count 1.4 Anisocytosis SLIGHT Manual Diff Comments (SEE NOTE) 32 CBC With Electronic Diff 10/09/2010 [facility] White Blood Count 3.8 CUMM Low 4.8-10.8 Red Cell Count 4.65 CUMM 4.2-5.4 Hemoglobin 13.2 g/dL 12.0-16.0 Hematocrit 40 % 35-47 Mean Corpuscular Volume 85 um3 79-97 Mean Corpuscular Hemoglob 28 pg 27-31 Mean Corpuscular HGB Cone 33 g/dL 32-36 Redcell Distribution WDTH 15 % 10.5-15 Platelet Count 192 CUMM 150-450 Mean Platelet Volume 8.1 um3 7.4-10.4 33 Laboratory test finding 10/09/2010 [facility] Ferritin 11 NG/ML Low 11.0-307 Vitamin B12 358 pg/mL 180-914 Folic Acid 19.4 NG/ML High 2-16 Laboratory test 07/01/2010 [facility] Hemoglobin A1c 4.8 % 4.1-5.7 finding (607)- - (Fma/[facility],CX) Vitamin D, 25 12/05/2009 [facility] 25-Hydroxy Vitamin 25 ng/mL () Hydroxy D2 25-Hydroxy Vitamin D3 34 ng/mL () 25-Hydroxy Vitamin D Total 59 ng/mL () 34 CBC With Electronic Diff 09/05/2009 [facility] White Blood Count 3.8 CUMM Low 4.8-10.8 [...] Basophils 0 0-0.2 Laboratory test finding 09/05/2009 [facility] Vitamin A (Retinol) 746 g/L 325 -780 35 Comp Metabolic Panel 09/05/2009 [facility] Sodium 137 mmol/L 135-145 Potassium 4.0 mmol/L [...] eGFR 139.9 > 60 40 Tibc 09/05/2009 [facility] Iron Total 57 g/dL 28-170 Unsaturated Iron Binding 366 g/dL Total Iron Binding Capacity 424 g/dL 250-450 % Iron Saturation 14 % Low 15-55 Vitamin D, 25 Hydroxy 09/05/2009 [facility] 25-Hydroxy Vitamin D2 5.8 ng/mL () 25-Hydroxy Vitamin D3 35 ng/mL () 25-Hydroxy Vitamin D Total 41 ng/mL () 41 Laboratory test finding 09/05/2009 [facility] Ferritin < 10 NG/ML Low 11.0-307 Vitamin B12 441 pg/mL 180-914 Folic Acid > 20.0 NG/ML High 2-16 Laboratory test finding 09/29/2008 [facility] Vitamin A (Retinol) 394 g/L 325 -780 42 Vitamin D, 25 Hydroxy 09/29/2008 [facility] 25-Hydroxy Vitamin D2 8.2 ng/mL () 25-Hydroxy Vitamin D3 21 ng/mL () 25-Hydroxy Vitamin D Total 29 ng/mL () 43 CBC With Electronic Diff 09/29/2008 [facility] White Blood Count 6.9 CUMM 4.8- 10.8 [...] Basophils 0 0-0.2 Comp Metabolic Panel 09/29/2008 [facility] Sodium 141 mmol/L 135-145 Potassium 4.3 mmol/L [...] 21 U/L 12-42 Laboratory test finding 09/29/2008 [facility] Vitamin B12 551 pg/mL 180-914 Folic Acid > 20.0 NG/ML High 2-16 Tibc 09/29/2008 [facility] Iron Total 66 g/dL 28-170 Unsaturated Iron Binding 403 g/dL Total Iron Binding Capacity 469 g/dL High 250-450 % Iron Saturation 14 % Low 15-55 Laboratory test 05/22/2008 [facility] Hemoglobin A1c 5.3 % 4.1-5.7 finding (607)- - (Fma/[facility],CX) Vitamin D, 25 09/24/2007 [facility] 25-Hydroxy Vitamin <4.0 ng/mL () Hydroxy D2 25-Hydroxy Vitamin D3 33 ng/mL () 25-Hydroxy Vitamin D Total 33 ng/mL () 47 Laboratory test finding 09/24/2007 [facility] Free Retinol 660 ug/L 360-1200 48 CBC With Electronic Diff 09/24/2007 [facility] White Blood Count 5.2 CUMM 4.8- 10.8 [...] 14 % 10.5-15 Comp Metabolic Panel 09/24/2007 [facility] One Over Creatinine 1.25 Anion Gap 6.0 [...] 8-20 Creatinine 0.8 mg/dL 0.5-1.4 Tibc 09/24/2007 [facility] Iron Total 118 g/dL 28-170 Unsaturated Iron Binding 302 g/dL Total Iron Binding Capacity 420 g/dL 250-450 % Iron Saturation 28 % 15-55 Laboratory test finding 09/24/2007 [facility] Vitamin B12 342 pg/mL 180-914 Folic Acid > 20.0 NG/ML High 2-16 CBC With Electronic Diff 04/23/2007 [facility] White Blood Count 5.1 CUMM 4.8- 10.8 [...] 15 % 10.5-15 Laboratory test finding 04/23/2007 [facility] Vitamin B12 458 pg/mL 180-914 Hemoglobin A1c 5.4 % <6.0 50 Comp Metabolic Panel 04/23/2007 [facility] One Over Creatinine 1.42 Anion Gap 5.0 [...] Creatinine 0.7 mg/dL 0.5-1.4 Lipid Profile 04/23/2007 [facility] Cholesterol/HDL Ratio 2.64 AVERAGE 1-4.44 (Trig/Chol/HDL) Cholesterol 156 mg/dL Less Than 200 52 Triglyceride 72 mg/dL 40-200 High Density Lipoprotein 59 mg/dL 40-60 Low Density Lipoprotein 83 mg/dL Less Than 100 53 Laboratory test finding 04/23/2007 [facility] TSH 1.30 MIU/ML 0.34-5.60 Comprehensive Metabolic 05/20/2006 [facility] Glucose 73 mg/dL 70-100 54 [address] [place], [place] [id number] [phone] BUN 15 mg/dL 4-18 Sodium 140 mmol/L [...] 05/20/2006 [facility] WBC 5.8 x103 4.3-10.9 [address] [place] [address] [phone] RBC 4.62 x106 3.80-5.30 Hemoglobin 12.6 g/dL [...] [facility] Hemoglobin A1c 5.4 % 55 [address] [place] [address] [phone] TSH (Thyrotropin) 1.320 uIU/ml 0.350-5.500 Vitamin B-12 433 pg/mL 56 Folic Acid(Folate)Serum >24.0 ng/ml 57 GFR (Calculated) >60 58 Laboratory test 10/10/2005 [facility] Hemoglobin A1c 4.7 % 4.1-5.7 finding (607)- - (F/C/CTX) CBC 01/16/2005 [facility] WBC 6.2 x103 4.3-10.9 [address] [place] [address] [phone] RBC 4.95 x106 3.80-5.30 Hemoglobin 14.6 g/dL [...] finding 01/16/2005 [facility] Iron 86 g/dL 30-158 [address] [place] [address] [phone] Vitamin B-12 784 pg/mL 59 Laboratory test 11/12/2004 [facility] Sedimentation Rate 7 MM/HR 0-20 finding [address] [place] [address] [phone] Uric Acid 6.2 mg/dL 2.7-8.4 Antinuclear AB (Esme) NEGATIVE Negative 60 Comprehensive 07/02/2004 [facility] Glucose 86 mg/dL 61.0 - 110.0 Metabolic [address] [place] [address] [phone] BUN 10 mg/dL 4.0 - 18.0 Creatinine, [...] 07/02/2004 [facility] Triglycerides 70 mg/dL 61 [address] [place], [place] [address] [phone] Cholesterol, Total 123 mg/dL 120.0 - 200.0 62 HDL Cholesterol 42 mg/dL 40.0 - 60.0 LDL Cholesterol, Calc. 67 mg/dL <130 63 LDL/HDL Cholesterol 1.6 64 Chol/HDL Cholesterol 2.9 65 CBC 07/02/2004 [facility] WBC 6.1 x10*3 4.3 - 10.9 [address] [place] [address] [phone] RBC 4.92 x10*6 3.8 - 5.3 Hemoglobin [...] [facility] Hemoglobin A1c 4.9 % 66 [address] [place] [address] [phone] Thyrotropin (TSH) 0.980 uIU/ml 0.35 - 5.5 Calcium,Ionized,Serum 5.5 mg/dL 4.5 - 5.6 Vitamin B-12 1011 pg/mL 67 Folic Acid(Folate)Serum >24.0 ng/ml 68 Iron/Tibc,%Sat Group 07/02/2004 [facility] Iron 100 g/dL 30.0 - 158.0 [address] [place] [address] [phone] Total Iron Binding Cap. 323 g/dL 250.0 - 450.0 % Iron Saturation 30.8 % 13.0 - 45.0 Laboratory test 07/02/2004 [facility] GFR (Calculated) >60 69 finding [address] [place] [address] [phone] Comprehensive 03/22/2003 [facility] Glucose 129 High 61.0 Metabolic 28 [facility] mg/[place] [address] [phone] BUN 13 mg/dL 4.0 - 18.0 [...] [facility] Triglycerides 203 mg/dL 37.0 - 28 [facility] [address] [place] [address] [phone] Cholesterol, Total 203 mg/dL High 120.0 - 200.0 71 HDL Cholesterol 45 mg/dL 40.0 - 60.0 LDL Cholesterol, Calc. 117 mg/dL <130 72 LDL/HDL Cholesterol 2.6 73 Chol/HDL Cholesterol 4.5 74 Laboratory test 03/22/2003 [facility] Hemoglobin A1c 5.6 % 75 finding [address] [place] [address] [phone] Glucose/Hgaic 09/13/2002 [facility] Glucose, Serum 90 mg/dL 70 - 105 Profile (Fma/[facility] (607)- - (Fma/[facility]/CTX) Hemoglobin A1c (F/C/CTX) 5.5 % 4.1-5.7 Laboratory test finding 03/31/2002 [facility] Hemoglobin A1c 5.9 % 76 [address] [place] [address] [phone] Glucose 98 mg/dL 61.0 - 112.0 Lipid Profile 12/21/2001 [facility] Triglycerides 233 mg/dL 37.0 - 28 [facility] [address] [place] [address] [phone] Cholesterol, Total 191 mg/dL 120.0 - 200.0 77 HDL Cholesterol 46 mg/dL 35.0 - 9999.0 LDL Cholesterol 98 mg/dL <130 78 LDL/HDL Cholesterol 2.1 79 Chol/HDL Cholesterol 4.2 80 Hepatic (Liver) 12/21/2001 [facility] Albumin 3.2 g/dL Low 3.6 - 4.5 Panel [address] [place] [address] [phone] Protein, Total 6.8 g/dL 6.2 - 8.0 Alkaline Phosphatase 88 U/L 42.0 - 127.0 Sgot (Ast) 20 U/L 9.0 - 37.0 SGPT (Alt) 22 U/L 7.0 - 42.0 Bilirubin, Total 0.40 mg/dL 0.2 - 1.3 Bilirubin, Direct 0.20 mg/dL 0.0 - 0.6 Bilirubin, Indirect 0.20 mg/dL 0.1 - 1.1 Comprehens.+ 05/17/2001 [facility] Glucose 102 mg/dL 61.0 - 112.0 Hepatic [address] [place] [address] [phone] BUN 12 mg/dL 4.0 - 18.0 Creatinine, [...] Triglycerides 269 mg/dL High 37.0 - 28 [facility] [address] [place], [place] [address] [phone] Cholesterol, Total 240 mg/dL High 120.0 - 200.0 82 HDL Cholesterol 46 mg/dL 35.0 - 9999.0 LDL Cholesterol 140 mg/dL AB <130 83 LDL/HDL Cholesterol 3.0 84 Chol/HDL Cholesterol 5.2 AB 85 Laboratory test 05/17/2001 [facility] Hemoglobin A1c 5.7 % 86 finding [address] [place] [address] [phone] Laboratory test 09/08/2000 [facility] Hemoglobin A1c 6.3 % AB Detail 87 finding [address] [place] [address] [phone] Hepatic (Liver) 09/08/2000 [facility] Albumin 3.7 g/dL 3.6 - 4.5 Panel [address] [place] [address] [phone] Protein, Total 7.1 g/dL 6.2 - 8.0 Alkaline Phosphatase 94 U/L 42.0 - 127.0 Sgot (Ast) 24 U/L 9.0 - 37.0 SGPT (Alt) 34 U/L 7.0 - 42.0 Bilirubin, Total 0.30 mg/dL 0.2 - 1.3 Bilirubin, Direct 0.30 mg/dL 0.0 - 0.6 Bilirubin, Indirect 0.00 mg/dL Low 0.1 - 1.1 Liver Profile-[facility] 06/17/2000 [facility] Albumin 3.7 g/dL 3.6-4.5 [address] [place] [address] [phone] Total Protein 7.2 g/dL 6.2-8.0 Alkaline Phosphatase 90 U/L 42-127 Ast (Sgot) 20 U/L 9-37 Alt (SGPT) 40 U/L 7-42 Bilirubin, Total 0.50 mg/dL 0.2-1.30 Bilirubin, Direct 0.40 mg/dL 0.00-0.60 Bilirubin, Indirect 0.10 mg/dL 0.10-1.10 Liver Function (Fma) 03/14/2000 [facility] Albumin 4.0 GM/DL 3.80 - 5.50 (607)- - Alkaline Phosphatase 94 U/L 39-130 Bilirubin, Direct 0.0 mg/dL 0-0.6 Bilirubin, Total 0.2 mg/dL 0.2-1.3 Ast (Sgot) 24 U/L 9-44 Alt (SGPT) 34 U/L 10-40 Total Protein 8.0 g/dL 6.3-8.1 Bilirubin, Indirect 0.20 ml/dl 0.10-1.0 Laboratory test 03/14/2000 [facility] Hemoglobin A1c 5.5 % 4.1-5.7 finding (607)- - Liver 12/12/1999 [facility] Albumin 3.8 g/dL 3.6-4.5 Profile[facility] [address] [place] [address] [phone] Alkaline Phosphatase 88 U/L 42-127 Ast (Sgot) 23 U/L 9-37 Alt (SGPT) 27 U/L 7-42 Total Bilirubin 0.40 mg/dL 0.2-1.3 Bilirubin, Direct 0.30 mg/dL 0.00-0.60 Bilirubin, Indirect 0.10 mg/dL 0.10-1.10 Laboratory test 12/12/1999 [facility] Total Protein 7.2 g/dL 6.2-8.0 finding [address] [place], [place] [id number] [phone] 1 *Ascorbic acid is present which may [...] [address]: Netta Gilbert MD Acct: [id number] Unit: [id number] AGE: 63 Location: [facility] Re08/20/18 SEX: F Status: REG REF SPEC: [id number] [place]: 08/20/18-1330 [facility] DR: Netta Gilbert MD REQ: [id number] RECD: 08/20/18 STATUS: PASCUAL HERNANDEZ DR: Tram Jolly MD _ SOURCE: URINE SPDESC: ORDERED: Urine Culture QUERIES: Urine Source: Clean Catch Procedure Result Reported Site Urine Culture Final 08/21/18- 1217 ML No Growth (<1,000 CFU/mL) * ML - Main Lab . END OF REPORT DEPARTMENT OF PATHOLOGY, [address] [place] [address] Johnathon Nixon M.D. Director [facility] # [id number] 4 1 sst 5 Vitamin D deficiency has been defined by the [place] [employer] and an Endocrine Society practice guideline as a level of serum 25-OH vitamin D less than 20 ng/mL (1,2). The Endocrine Society went on to further define vitamin D insufficiency as a level between 21 and 29 ng/mL (2). 1. IOM ([place] [employer]). 2010. Dietary reference intakes for calcium and D. [place]: The National Academies Press. 2. Arcenio THOMAS, Lane TEJEDA, Juan Diego ROMANO et al. Evaluation, treatment, and prevention of [...] D deficiency has been defined by the [place] [employer] [place] and an Endocrine Society practice guideline as a level of serum 25-OH vitamin D less than 20 ng/mL (1,2). The Endocrine Society went on to further define vitamin D insufficiency as a level between 21 and 29 ng/mL (2). 1. IOM ([place]). 2010. Dietary reference intakes for calcium and D. [place]: The [employer]. 2. Arcenio THOMAS, Lane TEJEDA, Juan [...] D deficiency has been defined by the [place] [employer] [place] and an Endocrine Society practice guideline as a level of serum 25-OH vitamin D less than 20 ng/mL (1,2). The Endocrine Society went on to further define vitamin D insufficiency as a level between 21 and 29 ng/mL (2). 1. IOM ([place]). 2010. Dietary reference intakes for calcium and D. [place]: The National Academies Press. 2. Arcenio MF, Lane [place], Juan Diego ROMANO, et al. Evaluation, treatment, and prevention of vitamin D deficiency: an Endocrine Society clinical practice guideline. JCEM. 2010; 96(7):1911-30. 27 Test Performed by: [facility] [address], [place], [place] [facility] [employer] Apprentice: Sara Alvarez, Ph.D. 28 -- REFERENCE VALUE -- 25-HYDROXY D TOTAL (D2+D3) Optimum levels in the normal population are 25-80 Test Performed by: [facility] [address] [place] [address] Metal Polisher [employer] Buffer Apprentice: Sadi R. Cockerill, III, M.D. 29 Anion gap measurement may be of limited value in the presence of any alkalosis, especially in a combined acid base disorder. . 30 A metabolite of Naproxen, O-desmethylnaproxen, has been shown to interfere with the [place] method for measuring total bilirubin. Samples from [...] population are 25-80 Test Performed by: [facility] [address] [place] [address] [employer] Polisher [employer] Buffer Apprentice: Sadi Anderson III, M.D. 35 Test Performed by: [facility] [address] [place] [address] [employer] Polisher [employer] Apprentice: Sadi Anderson III, M.D. 36 Anion gap measurement may be of limited value in the presence of any alkalosis, especially in a combined acid base disorder. . 37 Note change in reference range as of 04/06/08. The change was based on recommendations from the [place] [employer]. 38 Please note change in reference range effective 08 . 39 A metabolite of Naproxen, O-desmethylnaproxen, has been shown to interfere with the [place] method for measuring total bilirubin. Samples from [...] population are 25-80 Test Performed by: [facility] [address] [place] [address] [employer] Polisher [employer] Buffer Apprentice: Sadi Anderson III, M.D. 42 Test Performed by: [facility] [address] [place] [address] [employer]isher [employer] Buffer Apprentice: Sadi Anderson III, M.D. 43 -- REFERENCE VALUE -- 25-HYDROXY D TOTAL (D2+D3) Optimum levels in the normal population are 25-80 Test Performed by: [facility] [address] [place] [address] [employer]isher [employer] Apprentice: Sadi Anderson III, M.D. 44 Anion gap measurement may be of limited value in the presence of any alkalosis, especially in a combined acid base disorder. . 45 Note change in reference range as of 04/06/08. The change was based on recommendations from the [place] [employer]. 46 Please note change in reference range effective 08 . 47 -- REFERENCE VALUE -- 25-HYDROXY D TOTAL (D2+D3) Optimum levels in the normal population are 25-80 Test Performed by: [facility] [address] [place] [address] [employer] Polisher [employer] Buffer Apprentice: Sadi Anderson III, M.D. 48 Specimen received unprotected from light. Interpret results with caution. Test Performed by: [facility] [address] [place] [id number] [employer] Apprentice: Sadi Anderson III, M.D. 49 Anion gap measurement may be of limited value in the presence of any alkalosis, especially in a combined acid base disorder. . 50 THERAPEUTIC TARGET FOR THE TREATMENT OF DIABETES MELLITUS PATIENTS IS <7% HBA1C, AND IN SELECTIVE PATIENTS <6.0%. PLEASE REFER TO [place] DIABETIC CARE GUIDELINES FOR FURTHER [...] . Procedures Date Code Description Status 02/09/2018 [id number] Mammogram Completed 08/17/2017 [id number] Diabetic Retinal Eye Exam Completed 06/26/2017 [id number] Colonoscopy Completed 02/04/2017 [id number] Mammogram Completed 02/04/2016 [id number] Mammogram Completed 10/10/2011 [id number] Mammogram Completed 07/01/2010 33992 Finger Or Heel Stick Completed 06/28/2010 [id number] Mammogram Completed 06/22/2009 [id number] Mammogram Completed 06/21/2008 [id number] Mammogram Completed 06/04/2007 [id number] Colonoscopy Completed 05/28/2007 [id number] Mammogram Completed 08/17/2006 [id number] Bone Mineral Density Test Completed 05/22/2006 [id number] Mammogram Completed 09/08/2000 [id number] Electrocardiogram Complete Completed Encounters Type Date Location Provider Dx Diagnosis Office Visit 10/22/2018 [facility] Office Tram Stanley F43.23 Adjustment disorder 9:40a Ana Jolly with mixed anxiety and depressed mood Office Visit 08/04/2018 Main Office Tram Stanley Z01.818 Encounter for other 2:40p Ana Jolly preprocedural examination M17.0 Bilateral primary osteoarthritis of knee M25.462 Effusion, left knee M25.562 Pain in left knee Office Visit 04/20/2018 2:40p Main Office Tram Jolly, E66.8 Other obesity M.DJesus K21.9 Gastro-esophageal reflux disease without esophagitis Office [...] 10/21/2017 2:40p Main Office Tram Stanley K21.9 GastroAgustin esophageal Ana Jolly reflux disease without esophagitis [...] 09/27/2012 2:10p Main Office Jose Kay 465.9 OZ Serrato M.D. 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 MANAGER Unspec 627.2 Menopausal Or Female Climacteric State, Symptomatic Office Visit 06/14/2012 4:00p Main Office Shannan Kirby 627.2 Menopausal Or INVESTIGATION MANAGER Female Climacteric State, Symptomatic Office Visit 05/03/2012 1:15p Main Office Shannan Kirby 300.00 Anxiety State INVESTIGATION MANAGER Unspec Office Visit 04/20/2012 1:30p Main Office [...] Postsurgical Status Other Office Visit 10/10/2005 1:20p [facility] Rosibel noble V72.83 Examination Office Ana [...] 4:00p Main Office Garry Martinez, 250.00 Diabetes Mellitus Ana W/O Compl Type II Or Unspec Controlled 078.10 Viral Warts Unspec Office Visit 02/28/2003 2:10p Main Office Garry Villegas 250.00 Diabetes Mellitus Ana Martinez W/O Compl Type II Or Unspec Controlled 278.00 Obesity Unspec Office Visit 11/03/2002 9:00a [facility] Shannan Kirby, 466.0 Bronchitis Acute INVESTIGATION MANAGER Office Visit 09/13/2002 11:40a Main Office Garry Villegas 250.00 Diabetes Mellitus Ana Martinez W/O Compl Type II Or Unspec Controlled [...] Office Garry Martinez M.D. Plan of Treatment 11/16/2018 - Tram Jolly M.D.AllComments:Medication Management Patient Understands medications she's taking? Yes No Are there Barriers to Adherence? Yes No Has the patient been asked about herbal supplements and therapies, and OTC meds? Yes No
[2018-12-02] MEDS ORDERED: Gabapentin CAP(*) 300 MG ONE (07:23)
[2018-12-02] MEDS ORDERED: Famotidine IV* 10 MG/ML 2 ML (20 mg) ONE (07:23)
[2018-12-02] MEDS ORDERED: celeCOXIB CAP* 100 MG ONE (07:23)
[2018-12-02] MEDS ORDERED: ceFAZolin 1 GM ADVAN(*) 1 GM ADDV.VIAL IVPB ONE (07:23)
[2018-12-02] MEDS ORDERED: ceFAZolin 2 GM in NS PREMIX(*) 2 GM/100 ML BAG IVPB ONE (07:23)
[2018-12-02] MEDS ORDERED: Dexamethasone IV* 4 MG/ML 1 ML (4 MG) ONE (07:23)
[2018-12-02] MEDS ORDERED: Acetaminophen IV 1GM/100ML * 0 ML ONE (07:57)
[2018-12-02] MEDS ORDERED: ROPIVACAINE 5 MG/ML 30 ML BTL (0.5%) ONE ×2 (08:22→08:35)
[2018-12-02] MEDS ORDERED: KETAMINE HCL* 50 MG/ML 10 ML VIAL ONE (08:41)
[2018-12-02] MEDS ORDERED: Atracurium* 10 MG/ML 10 ML VIAL ONE (08:41)
[2018-12-02] MEDS ORDERED: fentaNYL* 50 MCG/ML 2 ML VIAL (100 MCG VIAL) ONE (08:41)
[2018-12-02] MEDS ORDERED: Midazolam* 1 MG/ML 5 ML VIAL (5 MG) ONE (08:41)
[2018-12-02] MEDS ORDERED: Ondansetron INJ* 2 MG/ML VIAL ONE (08:42)
[2018-12-02] MEDS ORDERED: Propofol* 10 MG/ML 20 ML BTL ONE (08:42)
[2018-12-02] MEDS ORDERED: fentaNYL* 50 MCG/ML 5 ML VIAL (250 MCG VIAL) ONE (09:40)
[2018-12-02] MEDS ORDERED: Lidocaine 2% PF * 5 ML VIAL ONE (09:40)
[2018-12-02] MEDS ORDERED: fentaNYL* 50 MCG/ML 2 ML VIAL (100 MCG VIAL) IV PRN (10:37)
[2018-12-02] MEDS ORDERED: Ondansetron INJ* 2 MG/ML VIAL IV PRN (10:37)
[2018-12-02] MEDS ORDERED: Naloxone* 0.4 MG/ML 1 ML VIAL IV PRN (10:37)
[2018-12-02] MEDS ORDERED: DiMENhydriNATE IV* 50 MG/ML VIAL IV PUSH PRN (10:37)
[2018-12-02] MEDS ORDERED: Scopolamine 1.5 mg* PATCH TRANSDERM PRN (10:37)
[2018-12-02] MEDS ORDERED: Glycopyrrolate IV* 0.2 MG/ML 1 ML VIAL ONE (11:02)
[2018-12-02] MEDS ORDERED: Atropine 1MG/ML INJ* 1 ML VIAL ONE (11:02)
[2018-12-02] MEDS ORDERED: traMADol TAB* 50 MG PO PRN (12:40)
[2018-12-02] MEDS ORDERED: Cyclobenzaprine TAB* 10 MG PO PRN (12:40)
[2018-12-02] MEDS ORDERED: diPHENhydraMINE IV* 50 MG/ML 1 ml VIAL (BENADRYL) IV PRN (12:40)
[2018-12-02] MEDS ORDERED: Magnesium Hydroxide LIQ* 30 ML UDC PO PRN (12:40)
[2018-12-02] MEDS ORDERED: Bisacodyl SUPP* 10 MG SUPP PR PRN (12:40)
[2018-12-02] MEDS ORDERED: Morphine 4 MG/ML VIAL (1 ml) 4 MG/ML VIAL IV PRN (12:40)
[2018-12-02] MEDS: HYDROmorphone INJ1* 1 MG/ML SYRINGE IV PRN ×3 (13:06→13:38)
[2018-12-02] MEDS ORDERED: HYDROmorphone INJ1* 1 MG/ML SYRINGE ONE (13:06)
[2018-12-02] MEDS ORDERED: Acetaminophen IV 1GM/100ML * 100 ML ONE (13:09)
[2018-12-02] MEDS: Lactated Ringers 1000 ML Bag* 1,000 ML IV SCH (14:13)
[2018-12-02] MEDS: HYDROcodone/ACETAMIN 5-325 MG* 1 TAB PO PRN ×3 (16:24→23:07)
[2018-12-02] MEDS: Ondansetron INJ* 2 MG/ML VIAL IV PRN (16:55)
--- NOTE | 2018-12-02 17:28 | OP ---
Operative Report - Blank - Operative Report Date of Operation: 12/02/18 Note: MAURO CHAUDHARY 1955 Date of Surgery: 12/02/18 Netta Gilbert MD Receiving Coordinator: Gatito DYSON did help throughout the procedure with preparation of the knee, wound retraction, manipulation of the knee, and wound closure. Anesthesiologist: Nelly Kumar MD Anesthesia Type: General Preoperative Diagnosis: Right severe degenerative osteoarthritis of the knee Postoperative Diagnosis: As above Procedure Performed: Right Total Knee Arthroplasty Tourniquet time: 49 minutes Complications: None Specimen: Bone and cartilage from the right knee joint sent to pathology. Hardware Used: Cemented Urbina and Nephew total knee hardware was used - For the femur a size 6 right narrow oxinium legion posterior stabilized femoral component, for the tibia a size 5 right rhonda II tibial baseplate, for the insert a size 11 5-6 posterior stabilized articular polyethylene insert, and for the patella a size 29 3-peg all poly patella. Brief History/Indication: MAURO CHAUDHARY was known in clinic and had a history of severe side knee pain and swelling. She failed conservative treatment with anti-inflammatories, pain pills, intra-articular injections and physical therapy. She elected to undergo right total knee arthroplasty due to continued pain and decreased quality of life. Radiographs showed severe end stage osteoarthritis of the knee with bone on bone contact. Informed consent was obtained from the patient. She understood the risks of surgery included but were not limited to: bleeding, infection, damage to nearby structures, intraoperative fracture, nerve palsy, failure of the hardware, early loosening, knee stiffness or loss of motion, anesthesia complications, stroke, heart attack , blood clot and . She wished to proceed. Intra-Operative Findings: Intraoperatively the patient was noted to have severe loss of cartilage in all 3 compartments of the knee. Description of the Procedure: MUARO CAHUDHARY was identified in the preanesthesia unit. Her right knee was marked as the correct operative side. Informed consent was signed and placed in the chart. The patient was taken to the operating room and placed under anesthesia without complication. A mora catheter was placed. A tourniquet was placed on the right thigh. The right lower extremity was prepped and draped in the usual sterile fashion. Preoperative time-out was made to correctly identify the patient, side and site. Appropriate intraoperative antibiotics were given within one hour of incision. Tourniquet was inflated. A midline incision was made and carried sharply down to the extensor mechanism. A new 10 blade was used to make a standard medial parapatellar arthrotomy. The patella was subluxed laterally. Electrocautery was used to dissect soft tissue off the superomedial tibia to the midsagittal plane. The knee was flexed up. The anterior horn of the lateral meniscus and the ACL were sharply incised. A drill was used to enter the distal femur. The intramedullary distal femoral cutting guide was pinned on the distal femur. The oscillating saw was used to make the distal femoral cut. The external rotation guide was pinned on the distal femur and the distal femur was sized to a size 6. The size 6 multi-cutting jig was pinned on the distal femur. The oscillating saw was used to make the appropriate 4 chamfer cuts. Next the PCL was completely released. The extramedullary tibial cutting guide was pinned on the proximal tibia and the oscillating saw was used to make the proximal tibial cut perpendicular to the mechanical axis of the tibia. The bone was carefully removed. The knee was brought out into full extension. The spacer block was placed and had excellent fit with the knee in full extension. The medial and lateral ligaments were well balanced. The flexion and extension gaps were well balanced. The knee was flexed up. Lamina black top spreader machine operator was placed both medially and laterally. Any remaining meniscus was removed with electrocautery. Curved osteotome was used to remove any posterior osteophytes. The tibial tray and drop araceli were placed and confirmed a satisfactory tibial cut. The size 6 narrow right femoral trial was impacted onto the distal femur. This trial had excellent fit and stability. The box for the posterior stabilized implant was prepared using a box cut osteotome and a reamer. Next a tibial tray trial and 9 mm insert trial was placed. The knee was taken through a range of motion and had full extension to 130 degrees of flexion. Patellofemoral tracking was satisfactory. The patella was inverted and sized to a size 29. Three peg holes were drilled through the size 29 drill guide. The trial patella was placed and the knee was taken through a range of motion. There was satisfactory patellofemoral tracking. All trials were removed. The tibia was subluxed anteriorly and sized to a size 5. The proximal tibial was prepared with a size 5 keel punch. All bony cut surfaces were irrigated with sterile saline and dried. Final implants were cemented into place starting with the tibia, followed by the femur, and last the patella. A 9 mm insert trial was placed and the knee was brought into full extension. Tourniquet was turned down and the knee was copiously irrigated with sterile saline. Electrocautery was used to obtain meticulous hemostasis. Once the cement had fully cured, the insert trial was removed. Any excess cement was removed from around the hardware and capsule. Final insert chosen was a 11 mm posterior stabilized Rhonda II articular insert size 5-6. Stability of the insert was checked and noted to be stable. The extensor mechanism was closed using number 1 vicryls. The rest of the incision was closed in a layered fashion using 0 and 2-0 vicryls. The skin was closed using 3-0 nylon suture. Sterile xeroform, 4x4s and webril were used to cover the incision. Doug wrap and cold pack were used to cover the dressings. The patients anesthesia was reversed without difficulty. She was taken to the PACU in stable condition. Intended weight-bearing will be as tolerated.
[2018-12-02] MEDS: ceFAZolin 1 GM ADVAN(*) 1 GM in NS 0.9% 50 ML* 50 ML IVPB SCH (17:38)
[2018-12-02] MEDS: FLUoxetine CAP* 20 MG PO SCH (17:38)
[2018-12-02] MEDS: Magnesium Hydroxide LIQ* 30 ML UDC PO SCH (20:25)
[2018-12-02] MEDS: Docusate CAP* 100 MG PO SCH (20:25)
[2018-12-03] MEDS: Lactated Ringers 1000 ML Bag* 1,000 ML IV SCH ×2 (00:19→07:10)
[2018-12-03] MEDS: HYDROcodone/ACETAMIN 5-325 MG* 1 TAB PO PRN ×2 (03:01→06:26)
[2018-12-03] MEDS: ceFAZolin 1 GM ADVAN(*) 1 GM in NS 0.9% 50 ML* 50 ML IVPB SCH ×2 (03:02→09:33)
[2018-12-03] MEDS: clonazePAM TAB(*) 0.5 MG PO PRN ×2 (03:07→13:33)
[2018-12-03 07:14] LABS: Hematocrit 32 % (33-41); Hemoglobin 10.7 g/dL (12.0-16.0); Mean Platelet Volume 7.6 fL (7.4-10.4); Platelet Count 187 10^3/uL (150-450)
--- NOTE | 2018-12-03 07:38 | PN ---
Hospitalist Progress Note Date of Service: 12/03/18 CAT call around 640am Pt got dizzy, nauseous and felt hot immediately after attempting to have a bowel movement. Her BP was 74/50. HR 50. I asked to bolus her 500cc and get her back to her chair. Her symptoms had resolved, never chest pain, SOB, abdominal pain and denied post op (POD #[address] Gilbert) pain. BP improved to 118/58 and HR 66. Suspected vasovagal syncopy. She was quite tearful and emotional. f/ u labs okay.
[2018-12-03 07:51] LABS: Calcium 8.4 mg/dL (8.6-10.3); EGFR African American 127.5 (>60); EGFR Non-African American 105.3 (>60); Potassium 4.1 mmol/L (3.5-5.0)
[2018-12-03] MEDS: Apixaban* 2.5 MG TAB PO SCH ×2 (08:20→20:20)
[2018-12-03] MEDS: Vitamin THERAPEUTIC TAB PO SCH (08:20)
[2018-12-03] MEDS: Magnesium Hydroxide LIQ* 30 ML UDC PO SCH ×2 (08:20→20:20)
[2018-12-03] MEDS: Docusate CAP* 100 MG PO SCH ×2 (08:20→20:20)
--- NOTE | 2018-12-03 10:32 | PN ---
Progress Note - Progress Note Date of Service: 12/03/18 SOAP: Subjective: [] Patient seen at bedside. She has a vaso vagal episode earlier this am. No further issues with dizziness upon evaluation later this am. She is having some pain management issues. We will change her pain medications that worked better in the past for her. Objective: [] Vital Signs Temp 98.4 F 12/03/18 07:48 Pulse 71 12/03/18 07:48 Resp 17 12/03/18 08:20 BP 118/62 12/03/18 07:48 Pulse Ox 98 12/03/18 08:00 Intake & Output 12/02/18 12/03/18 12/03/18 18:59 06:59 18:59 Intake Total 2600 1915 1423 Output Total 600 2400 700 Balance 1999 -485 723 Weight 266 lb Intake: IV Fluids 1999 1005 1003 ABX - CEFAZOLIN 55 55 LR 2000 950 948 Oral 600 910 420 Output: Urine 700 Mer[place] 600 2400 Laboratory Results - last 24 hr 12/03/18 12/03/18 06:25 06:26 Hgb 10.7 L Hct 32 L Plt Count 187 MPV 7.6 Sodium 140 Potassium 4.1 Chloride 106 Carbon Dioxide 27 Anion Gap 7 BUN 11 Creatinine 0.58 Est GFR ( Amer) 127.5 Est GFR (Non-Af Amer) 105.3 BUN/Creatinine Ratio 19.0 Glucose 106 H Calcium 8.4 L Right knee dressings are dry and intact +DF right ankle sensation and circultion intact distally Assessment: []s/p RTK POD #1 Plan: []Change pain meds to Oral liquid morphine prn and scheduled MS Contin ER Eliquis for DVT prophlaxis PMRU referral in PT/OT - WBAT RLE
[2018-12-03] MEDS: Morphine TAB Extended Release (*) 15 MG TAB.ER PO SCH ×2 (10:54→23:06)
--- NOTE | 2018-12-03 11:15 | PN ---
Subjective Date of Service: 12/03/18 Interval History: Follow up from CAT call this morning for vasovagal episode. Ms. Nogueira is feeling better this morning. She has not had any further episodes of diaphoresis, nausea, dizziness, lightheadedness, or near syncope. Denies CP or SOB. Denies any history of syncope. Nursing reports pain has been difficult to control. Family History: Unchanged from Admission Social History: Unchanged from Admission Past Medical History: Unchanged from Admission Objective Active Medications: Acetaminophen (Tylenol Tab*) 975 mg PO Q8H PRN PAIN OR TEMPERATURE Hydrocodone Bitart/Acetaminophen ([place] 5-325 Tab*) 2 tab PO Q4H PRN PAIN Apixaban (Eliquis*) 2.5 mg PO BID TREVOR Bisacodyl (Dulcolax Supp*) 10 mg LA DAILY PRN constipation Clonazepam (Klonopin Tab(*)) 0.5 mg PO BID PRN ANXIETY Cyclobenzaprine HCl (Flexeril Tab*) 5 mg PO TID PRN SPASMS Dimenhydrinate (Dramamine Iv*) 25 mg IV PUSH ONCE PRN NAUSEA/VOMITING Diphenhydramine HCl (Benadryl Iv*) 25 mg IV Q6H PRN itching Docusate Sodium (Colace Cap*) 100 mg PO BID TREVOR Fluoxetine HCl (Prozac Cap*) 20 mg PO QPM TREVOR Lactated Ringer's (Lactated Ringers 1000 Ml Bag*) 1,000 mls @ 100 mls/hr IV PER RATE TREVOR Lactulose (Lactulose*) 30 ml PO Q6H PRN constipation Magnesium Hydroxide (Milk Of Magnesia Liq*) 30 ml PO BID TREVOR Magnesium Hydroxide (Milk Of Magnesia Liq*) 30 ml PO Q6H PRN constipation Morphine Sulfate (Morphine 4 Mg/Ml Vial (1 Ml)) 2 mg IV Q2H PRN PAIN Morphine Sulfate (Ms Contin(*)) 15 mg PO Q12H TREVOR Morphine Sulfate (Morphine Oral.Soln 10 Mg*) 10 mg PO Q4H PRN breakthru pain Multivitamins (Theragran Tab*) 1 tab PO DAILY TREVOR Ondansetron HCl (Zofran Inj*) 4 mg IV Q6H PRN nausea Scopolamine (Transderm-Scop 1.5 Mg Patch*) 1 patch TRANSDERM Q72H PRN Nausea/ Vomiting Vital Signs - 8 hr 12/03/18 12/03/18 12/03/18 03:17 05:39 06:26 Temperature 99.5 F Pulse Rate 68 Respiratory 17 16 16 Rate Blood Pressure 106/52 (mmHg) O2 Sat by Pulse 95 Oximetry 12/03/18 12/03/18 12/03/18 07:48 08:00 08:20 Temperature 98.4 F Pulse Rate 71 Respiratory 17 17 17 Rate Blood Pressure 118/62 (mmHg) O2 Sat by Pulse 98 98 Oximetry Oxygen Devices in Use Now: None Appearance: Middle-aged female sitting in bed in NAD Eyes: No Scleral Icterus Ears/Nose/Mouth/Throat: Mucous Membranes Moist Neck: NL Appearance and Movements; NL JVP, Trachea Midline Respiratory: Symmetrical Chest Expansion and Respiratory Effort, Clear to Auscultation Cardiovascular: NL Sounds; No Murmurs; No JVD, RRR Skin: - - Surgical dressing to right knee Neurological: Alert and Oriented x 3 Lines/Tubes/Other Access: Clean, Dry and Intact Peripheral IV Nutrition: Taking PO's Result Diagrams: 12/03/18 06:26 12/03/18 06:25 Assess/Plan/Problems-Billing Assessment: Ms. Nogueira is a 63 yo F with PMH of DEION, anxiety, depression, and GERD who underwent an elective right TKA with Dr. Gilbert on 12/02/18 and had a CAT call on 12/03/18 for a near syncopal event. - Patient Problems (1) Status post right knee replacement Code(s): Z96.651 - PRESENCE OF RIGHT ARTIFICIAL KNEE JOINT Comment: - POD #1 - Management per Ortho - Recommend caution with narcotics and oversedation postoperatively (2) Vasovagal near syncope Code(s): R55 - SYNCOPE AND COLLAPSE Comment: - Episode of diaphoresis, dizziness, and nausea while attempting to have a BM early this morning - VS have been stable and she has since been asymptomatic - Multifactorial though likely exacerbated by postop state and narcotics - Continue to monitor, but low suspicion for repeat episode (3) DVT prophylaxis Comment: - Eliquis per Ortho (4) Full code status Code(s): Z78.9 - OTHER SPECIFIED HEALTH STATUS Comment: Status and Disposition: Disposition per Ortho. Hospital Medicine will sign off at this time, but please do not hesitate to call with any further questions or concerns. Attending: Nicolas Spencer
[2018-12-03] MEDS: Morphine ORAL.SOLN 10 mg* 2 MG/ML UDC 5 ml PO PRN ×3 (12:18→21:54)
[2018-12-03] MEDS: Ondansetron INJ* 2 MG/ML VIAL IV PRN (13:34)
[2018-12-03] MEDS: Acetaminophen TAB* 325 MG PO PRN ×2 (13:40→21:53)
[2018-12-03] MEDS: FLUoxetine CAP* 20 MG PO SCH (17:52)
[2018-12-04] MEDS: Morphine ORAL.SOLN 10 mg* 2 MG/ML UDC 5 ml PO PRN ×4 (02:33→16:16)
[2018-12-04] MEDS: Ondansetron INJ* 2 MG/ML VIAL IV PRN (06:13)
[2018-12-04] MEDS: Acetaminophen TAB* 325 MG PO PRN ×2 (06:20→17:11)
[2018-12-04 06:43] LABS: Hematocrit 34 % (33-41); Hemoglobin 11.1 g/dL (12.0-16.0); Mean Platelet Volume 7.5 fL (7.4-10.4); Platelet Count 174 10^3/uL (150-450)
--- NOTE | 2018-12-04 07:00 | PN ---
Progress Note - Progress Note Date of Service: 12/04/18 SOAP: Subjective: resting comfortably, pain well controlled Objective: Vital Signs Temp Pulse Resp BP Pulse Ox 97.3 F 79 16 121/60 92 12/04/18 02:33 12/04/18 02:33 12/04/18 06:19 12/04/18 02:33 12/04/18 02:33 Laboratory Last Values Hgb 11.1 g/dL (12.0-16.0) L 12/04/18 06:30 Hct 34 % (33-41) 12/04/18 06:30 Plt Count 174 10^3/uL (150-450) 12/04/18 06:30 MPV 7.5 fL (7.4-10.4) 12/04/18 06:30 Sodium 140 mmol/L (135-145) 12/03/18 06:25 Potassium 4.1 mmol/L (3.5-5.0) 12/03/18 06:25 Chloride 106 mmol/L (101-111) 12/03/18 06:25 Carbon Dioxide 27 mmol/L (22-32) 12/03/18 06:25 Anion Gap 7 mmol/L (2-11) 12/03/18 06:25 BUN 11 mg/dL (6-24) 12/03/18 06:25 Creatinine 0.58 mg/dL (0.51-0.95) 12/03/18 06:25 Est GFR ( Amer) 127.5 (>60) 12/03/18 06:25 Est GFR (Non-Af Amer) 105.3 (>60) 12/03/18 06:25 BUN/Creatinine Ratio 19.0 (8-20) 12/03/18 06:25 Glucose 106 mg/dL (70-100) H 12/03/18 06:25 POC Glucose (mg/dL) 101 mg/dL (70-100) H 12/02/18 08:22 Calcium 8.4 mg/dL (8.6-10.3) L 12/03/18 06:25 incision: c/d; dressing changed PE: NVI Assessment: s/p right TKA; POD#2 Plan: 1) PT/OT-WBAT 2) Hospitalist co-managing 3) PMRU consult pending 4) Eliquis for DVT prophylaxis
[2018-12-04] MEDS: Apixaban* 2.5 MG TAB PO SCH ×2 (08:18→20:11)
[2018-12-04] MEDS: Docusate CAP* 100 MG PO SCH ×2 (08:18→20:12)
[2018-12-04] MEDS: Vitamin THERAPEUTIC TAB PO SCH (08:18)
[2018-12-04] MEDS: Magnesium Hydroxide LIQ* 30 ML UDC PO SCH ×2 (08:19→20:12)
[2018-12-04] MEDS: Morphine TAB Extended Release (*) 15 MG TAB.ER PO SCH ×2 (10:35→23:32)
[2018-12-04] MEDS: FLUoxetine CAP* 20 MG PO SCH (17:11)
[2018-12-04] MEDS: HYDROcodone/ACETAMIN 5-325 MG* 1 TAB PO PRN (20:12)
[2018-12-05 05:09] LABS: Hematocrit 32 % (33-41); Hemoglobin 10.6 g/dL (12.0-16.0); Mean Platelet Volume 7.2 fL (7.4-10.4); Platelet Count 172 10^3/uL (150-450)
[2018-12-05] MEDS: Morphine ORAL.SOLN 10 mg* 2 MG/ML UDC 5 ml PO PRN ×3 (07:34→18:11)
--- NOTE | 2018-12-05 09:11 | PN ---
Progress Note - Progress Note Date of Service: 12/05/18 SOAP: Subjective: OOB to chair resting comfortably, pain well controlled Objective: Vital Signs Temp Pulse Resp BP Pulse Ox 99.2 F 77 20 125/58 92 12/05/18 07:28 12/05/18 07:28 12/05/18 07:36 12/05/18 07:28 12/05/18 07:36 Laboratory Last Values Hgb 10.6 g/dL (12.0-16.0) L 12/05/18 04:58 Hct 32 % (33-41) L 12/05/18 04:58 Plt Count 172 10^3/uL (150-450) 12/05/18 04:58 MPV 7.2 fL (7.4-10.4) L 12/05/18 04:58 Sodium 140 mmol/L (135-145) 12/03/18 06:25 Potassium 4.1 mmol/L (3.5-5.0) 12/03/18 06:25 Chloride 106 mmol/L (101-111) 12/03/18 06:25 Carbon Dioxide 27 mmol/L (22-32) 12/03/18 06:25 Anion Gap 7 mmol/L (2-11) 12/03/18 06:25 BUN 11 mg/dL (6-24) 12/03/18 06:25 Creatinine 0.58 mg/dL (0.51-0.95) 12/03/18 06:25 Est GFR ( Amer) 127.5 (>60) 12/03/18 06:25 Est GFR (Non-Af Amer) 105.3 (>60) 12/03/18 06:25 BUN/Creatinine Ratio 19.0 (8-20) 12/03/18 06:25 Glucose 106 mg/dL (70-100) H 12/03/18 06:25 POC Glucose (mg/dL) 101 mg/dL (70-100) H 12/02/18 08:22 Calcium 8.4 mg/dL (8.6-10.3) L 12/03/18 06:25 incision: c/d PE: NVI Assessment: s/p right TKA Plan: 1) PT/OT- WBAT 2) Eliquis for DVT prophyalxis 3) PMRU tomorrow
[2018-12-05] MEDS: Apixaban* 2.5 MG TAB PO SCH ×2 (09:42→21:26)
[2018-12-05] MEDS: Vitamin THERAPEUTIC TAB PO SCH (09:42)
[2018-12-05] MEDS: Docusate CAP* 100 MG PO SCH ×2 (09:42→21:26)
[2018-12-05] MEDS: Magnesium Hydroxide LIQ* 30 ML UDC PO SCH ×2 (09:42→21:26)
[2018-12-05] MEDS: Morphine TAB Extended Release (*) 15 MG TAB.ER PO SCH ×2 (11:19→23:29)
[2018-12-05] MEDS: FLUoxetine CAP* 20 MG PO SCH (18:10)
[2018-12-05] MEDS: HYDROcodone/ACETAMIN 5-325 MG* 1 TAB PO PRN (21:26)
[2018-12-06 05:50] LABS: Hematocrit 34 % (33-41); Hemoglobin 10.8 g/dL (12.0-16.0); Mean Platelet Volume 8.1 fL (7.4-10.4); Platelet Count 166 10^3/uL (150-450)
[2018-12-06] MEDS: HYDROcodone/ACETAMIN 5-325 MG* 1 TAB PO PRN (07:54)
[2018-12-06] MEDS: Magnesium Hydroxide LIQ* 30 ML UDC PO SCH ×2 (07:55→21:11)
[2018-12-06] MEDS: Docusate CAP* 100 MG PO SCH ×2 (07:57→21:11)
[2018-12-06] MEDS: Apixaban* 2.5 MG TAB PO SCH ×2 (07:57→21:12)
[2018-12-06] MEDS: Vitamin THERAPEUTIC TAB PO SCH (07:57)
--- NOTE | 2018-12-06 10:32 | PN ---
Progress Note - Progress Note Date of Service: 12/06/18 SOAP: Subjective: []Pt seen at bedside. She feels well. Denies CP, SOB, dizziness, nausea. Knee pain is well controlled Objective: []General: Appears well, NAD RLE: Right knee dressing changed, incision CDI, thigh is soft, DF/PF intact, DP2 +, sensation intact to light touch distally Calves supple and nontender without erythema, edema or palpable cords Assessment: []s/p right TKA Plan: 1) PT/OT- WBAT 2) Eliquis for DVT prophyalxis 3) ready for DC when bed is available Vital Signs Temp 97.7 F 12/06/18 07:33 Pulse 73 12/06/18 07:33 Resp 20 12/06/18 08:00 BP 113/49 12/06/18 07:33 Pulse Ox 98 12/06/18 08:00 Intake & Output 12/05/18 12/06/18 12/06/18 18:59 06:59 18:59 Intake Total 800 980 600 Output Total 2200 0 400 Balance -1400 980 200 Intake: Oral 800 980 600 Output: Urine 2200 0 400 Other: Date of Last Bowel 12/05/18 12/06/18 Movement # Bowel Movements 1 0 Estimated Stool Amount Medium Large Laboratory Last Values Hgb 10.8 g/dL (12.0-16.0) L 12/06/18 05:33 Hct 34 % (33-41) 12/06/18 05:33 Plt Count 166 10^3/uL (150-450) 12/06/18 05:33 MPV 8.1 fL (7.4-10.4) 12/06/18 05:33 Sodium 140 mmol/L (135-145) 12/03/18 06:25 Potassium 4.1 mmol/L (3.5-5.0) 12/03/18 06:25 Chloride 106 mmol/L (101-111) 12/03/18 06:25 Carbon Dioxide 27 mmol/L (22-32) 12/03/18 06:25 Anion Gap 7 mmol/L (2-11) 12/03/18 06:25 BUN 11 mg/dL (6-24) 12/03/18 06:25 Creatinine 0.58 mg/dL (0.51-0.95) 12/03/18 06:25 Est GFR ( Amer) 127.5 (>60) 12/03/18 06:25 Est GFR (Non-Af Amer) 105.3 (>60) 12/03/18 06:25 BUN/Creatinine Ratio 19.0 (8-20) 12/03/18 06:25 Glucose 106 mg/dL (70-100) H 12/03/18 06:25 POC Glucose (mg/dL) 101 mg/dL (70-100) H 12/02/18 08:22 Calcium 8.4 mg/dL (8.6-10.3) L 12/03/18 06:25
[2018-12-06] MEDS: Morphine TAB Extended Release (*) 15 MG TAB.ER PO SCH (10:42)
[2018-12-06] MEDS: clonazePAM TAB(*) 0.5 MG PO PRN (16:15)
[2018-12-06] MEDS: Morphine ORAL.SOLN 10 mg* 2 MG/ML UDC 5 ml PO PRN ×2 (16:15→21:12)
[2018-12-06] MEDS: FLUoxetine CAP* 20 MG PO SCH (17:46)
[2018-12-07] MEDS: Morphine TAB Extended Release (*) 15 MG TAB.ER PO SCH ×2 (00:07→11:43)
[2018-12-07 05:35] LABS: Hematocrit 31 % (33-41); Hemoglobin 10.3 g/dL (12.0-16.0); Mean Platelet Volume 7.5 fL (7.4-10.4); Platelet Count 205 10^3/uL (150-450)
[2018-12-07] MEDS: Docusate CAP* 100 MG PO SCH (08:19)
[2018-12-07] MEDS: Morphine ORAL.SOLN 10 mg* 2 MG/ML UDC 5 ml PO PRN (08:19)
[2018-12-07] MEDS: Apixaban* 2.5 MG TAB PO SCH (08:19)
[2018-12-07] MEDS: Vitamin THERAPEUTIC TAB PO SCH (08:19)
[2018-12-07] MEDS: Magnesium Hydroxide LIQ* 30 ML UDC PO SCH (08:20)
--- NOTE | 2018-12-07 11:50 | DS ---
Orthopedic Discharge Summary - Discharge Summary Date of Admission:12/02/18 Date of Discharge: 12/07/18 Date of Surgery: 12/02/18 Attending Orthopedic Provider: Dr Gilbert Pre-operative Diagnosis: right knee osteoarthritis Operative Procedure: right total knee replacement Condition of Patient: stable History: MAURO CHAUDHARY is a 63 year old F with years of increasingly severe right knee pain. Patient has failed conservative management and has elected to undergo a right total knee replacement Hospital Course: MAURO was admitted to [facility] on 12/02/18. Patient underwent a right total knee replacement without complication followed by a brief recovery in PACU and transfer to the Short Stay Surgical Unit in stable condition. Our hospitalist service, physical therapy and occupational therapy also participated in this patients care. Post-op day 1: patient was alert and in no acute distress. Dressing was clean, dry and intact. Operative extremity dorsiflexion and plantarflexion intact, sensation intact to light touch distally, DP2+. Post-op day two: dressing was changed, incision was clean , dry and intact. Patient was deemed to be medically and orthopedically stable for discharge home. Physical therapy goals were met. She stayed in house until for continued PT while awaiting a bed offer. She was accepted to rehab though chose to go home with [facility] and home PT on 12/07/18. Exam 12/07 incision CDI , thigh soft , DF/PF intact, DP2+, sensation intact to light touch distally. Medically and orthopedically stable for DC home. Home Medications Medication Instructions Recorded Confirmed Type Fluoxetine HCl Prozac 20 mg PO QPM 04/03/17 12/02/18 History raNITIdine HCl [Ranitidine HCl] 300 mg PO QPM 04/09/18 12/02/18 History Calcium 1 tab PO QAM 08/20/18 12/02/18 History Multivitamin [Multivitamins] 1 tab PO QAM 08/20/18 12/02/18 History Pro Optic 1 tab PO QAM 08/20/18 12/02/18 History Vitamin B12 1 tab PO QAM 08/20/18 12/02/18 History Vitamin D TAB* 1 tab PO QAM 08/20/18 12/02/18 History clonazePAM TAB(*) [Klonopin TAB(*)] 0.5 mg PO BID PRN tab 09/06/18 12/02/18 Rx Acetaminophen TAB* [Tylenol TAB*] 975 mg PO Q8H PRN tab 12/07/18 Rx Apixaban* [Eliquis*] 2.5 mg PO BID 25 Days #50 tab 12/07/18 Rx Docusate CAP* [Colace Cap*] 100 mg PO BID #90 cap 12/07/18 Rx HYDROcodone/ACETAMIN 5-325 MG* 2 tab PO Q4H PRN #70 tab MDD 10 12/07/18 Rx [Stanley 5-325 TAB*] Discharge Instructions following Orthopedic Surgery: Activity: * Weight Bearing as tolerated * Continue physical therapy and occupational therapy exercises as shown Wound care: * OK to shower on post-op day 3, no bathing, swimming, or submerging wound. * Use gentle soap, pat dry. Cover with gauze, JUWAN wrap or tape. * Visiting home nurse to do wound checks. Call Orthopedic office for: * Increased drainage * Redness * Increased pain * Fever Go to ER with shortness of breath or chest pain. Diet: * Regular diet * Increase fluids and fiber to prevent constipation. * Continue to use stool softeners, call office if no bowel motion within 48 hours. Medications See Home Medication List in your packet for medications that you should take after discharge. DVT Prophylaxis: Eliquis Dosin.5 mg, 1 tab every 12 hours x 30 days post op. Pain Control: Hydrocodone/acetaminophen 5/325 mg 1-2 tabs by mouth every 4-6 hours as needed for pain. Maximum of 10 tabs per day. Antibiotics are required prior to any dental work. FOLLOW UP: Follow up with [Vladimir] Within 10-14 days of your surgery call for appointment Please call our office with any questions or concerns ([phone]) [place] [facility] [place]
[2018-12-07 12:19] VITALS: BP 118/58
== END 2018-12-07 13:30 | disposition home health service (06) | DRG 302 ==
LOC: AA 06:58 → SSU 12:40
PROVIDERS: ADMIT Orthopaedic Surgery Adult Reconstructive Orthopaedic Surgery; ATTEND Orthopaedic Surgery Adult Reconstructive Orthopaedic Surgery
PROC: 0SRC069 Replacement of Right Knee Joint with Oxidized Zirconium on Polyethylene Synthetic Substitute, Cemented, Open Approach (ICD-10-PCS; principal; 2018-12-02 09:15)
DX: M17.11 Unilateral primary osteoarthritis, right knee (principal); Z68.43 Body mass index [BMI] 50.0-59.9, adult; E11.9 Type 2 diabetes mellitus without complications; G47.33 Obstructive sleep apnea (adult) (pediatric); F41.9 Anxiety disorder, unspecified; F32.9 Major depressive disorder, single episode, unspecified; K44.9 Diaphragmatic hernia without obstruction or gangrene; K21.9 Gastro-esophageal reflux disease without esophagitis; H35.30 Unspecified macular degeneration; M25.461 Effusion, right knee; M25.761 Osteophyte, right knee; E66.01 Morbid (severe) obesity due to excess calories; F43.23 Adjustment disorder with mixed anxiety and depressed mood; Z96.652 Presence of left artificial knee joint; R11.0 Nausea; R55 Syncope and collapse; Z98.84 Bariatric surgery status; Z90.49 Acquired absence of other specified parts of digestive tract
CPT/HCPCS: 36415; 80048; 85014; 85018; 85049; 88305; 88311; A9270-GY; C1776; J0461; J0690; J1100; J1170; J2250; J2405; J2704; J2795; J3010